=== PATIENT | male | born 1940 | race Caucasian/White ===

== ENCOUNTER → 2024-01-01 06:22 | Day surgery (SDC) | payer MEDICARE, OTHER, SELFPAY | LOC: GI 06:22 | PROVIDERS: ATTENDING PHYSICIAN Internal Medicine Gastroenterology | DX: Z12.11 Encounter for screening for malignant neoplasm of colon (principal); K57.30 Diverticulosis of large intestine without perforation or abscess without bleeding; K64.8 Other hemorrhoids; K22.70 Barrett's esophagus without dysplasia; K22.89 Other specified disease of esophagus; K44.9 Diaphragmatic hernia without obstruction or gangrene; Z86.010 Personal history of colon polyps; Z87.19 Personal history of other diseases of the digestive system | CPT/HCPCS: 45378; 43239; 88305 ==

== ENCOUNTER → 2024-05-13 08:48 | Outpatient (REF) | payer MEDICARE, OTHER, SELFPAY | LOC: RCS 08:48 | PROVIDERS: ATTENDING PHYSICIAN Nurse Practitioner Gerontology; FAMILY PHYSICIAN Family Medicine | DX: I25.5 Ischemic cardiomyopathy (principal); Z95.5 Presence of coronary angioplasty implant and graft; Z98.890 Other specified postprocedural states; I48.0 Paroxysmal atrial fibrillation; I10 Essential (primary) hypertension | CPT/HCPCS: 93306 ==

== ENCOUNTER → 2024-10-29 10:56 | Outpatient (REF) | payer MEDICARE, OTHER, SELFPAY | LOC: DHCBC/DCA 10:56 | PROVIDERS: ATTENDING PHYSICIAN Internal Medicine; FAMILY PHYSICIAN Family Medicine | DX: I25.709 Atherosclerosis of coronary artery bypass graft(s), unspecified, with unspecified angina pectoris (principal); I25.5 Ischemic cardiomyopathy | CPT/HCPCS: 78452; 93017; A9500; J2785 ==

== ENCOUNTER → 2025-03-31 16:04 | Outpatient (REF) | payer MEDICARE, OTHER, SELFPAY | LOC: RAD 16:04 | PROVIDERS: ATTENDING PHYSICIAN Physician Assistant | DX: M79.641 Pain in right hand (principal) | CPT/HCPCS: 73130; 73140 ==

== ENCOUNTER 2025-04-15 16:54 | Emergency (ER) | payer MEDICARE, OTHER, SELFPAY ==
[2025-04-15 16:59] VITALS: BP 115/70
[2025-04-15 22:03] VITALS: BP 124/78
--- NOTE | 2025-04-15 22:03 | ED.GENMED ---
History of Present Illness
General
Chief Complaint: Musculo-Skeletal Complaint
Source: patient
Time Seen by Provider: 04/15/25 21:51
History of Present Illness
History of Present Illness:
84-year-old male with past medical history of CVA, atrial fibrillation, previous NE, hypertension, hyperlipidemia, valvular disease presenting to the emergency department for evaluation after he fell 2 weeks ago injuring his right hand and since
that time has had difficulty grasping objects secondary to pain that is mainly along the third distalmost aspect. Patient reports that he had an outpatient x-ray that allegedly did not show any fractures but due to continued pain decided come to
the ER this evening. He never followed up with any orthopedist. No other injuries or concerns.
Past History
Past History
ED Past Medical History: Arrthythmia (Atrial fibrillation), CAD, CVA (TIA, cerebral aneurysm subarachnoid bleed), GERD, HTN, Hypercholesterolemia, Valvular disease (Aortic regurgitation), Other (Clipped cerebral aneurysm . Osteoarthritis/tendinitis
left shoulder.) and Other (Obstructive sleep apnea/BiPAP)
ED Past Surgical History: Appendectomy, Cardiac (Mitral valve repair in 1994, CABG times 12/15/1994, PTCA with stent 2004, August 2017, bovine aortic valve replacement, CABG redo), Cholecystectomy and Other (Left inguinal hernia repair, TURP)
Patient has exhibited threatening behavior?: No
PSI?: No
Social History
Tobacco: Non-smoker
Alcohol: None
Drug: None
Personal:
Living: with family
Employment: Retired
Family History
Family History: Hypertension
Review of Systems
Review of Systems
All Other Systems: ROS reviewed and negative except as documented in HPI and ROS
Phy Exam
Physical Exam
Physical Exam:
GENERAL: Alert , in no apparent distress
EYE: conjunctiva clear
Head: Normocephalic atraumatic
NECK: Supple,
ENT: mmm.
LUNGS: no acute respiratory distress
NEUROLOGICAL: Alert and oriented
SKIN: Warm and dry, skin intact.
MUSCULOSKELETAL: Right hand: There is some mild soft tissue swelling around the 2nd and 3rd MCP joint. Patient is able to range of motion at the MCP, PIP and DIP but does complain of pain with stenotype machine operator at the third MCP. Easily palpable radial pulse.
Cap refill less than 2 seconds. Sensation is grossly intact to light touch. Remainder of extremity is within normal limits.
PSYCH: Normal and appropriate interaction.
Scores
Heart Failure Risk
Heart Failure Risk Score: Not Applicable
Heart Score for Chest Pain Patients
STEMI patient?: Not applicable
Withdrawal Assessment of Alcohol
Withdrawal Assessment Completed?: Not applicable
Course
Vital Signs
Initial and Last Documented VS:
Initial Vital Signs
Temp Pulse Resp BP Pulse Ox
98.5 F 65 16 115/70 97
04/15/25 16:59 04/15/25 16:59 04/15/25 16:59 04/15/25 16:59 04/15/25 16:59
Last Documented Vital Signs
Temp Pulse Resp BP Pulse Ox
98.5 F 63 16 124/78 97
04/15/25 16:59 04/15/25 22:03 04/15/25 22:03 04/15/25 22:03 04/15/25 22:03
Procedures
Splinting/Sling Placement
Right Wrist:
Procedure completed by: Lucille
Pre-splint extermity exam: neurovascular intact
Type of splint: volar
Splint material: other (3 inch Ortho-Glass)
Splint checked by provider?: Yes
Normal distal neurovascular exam?: Yes
MDM/Problems Addressed
Differential Diagnosis Includes:
Sprain, contusion, fracture, tendon injury/ligamentous injury
MDM/Problems Addressed:
84-year-old male presenting back to the emergency department after being seen as an outpatient for right hand injury from a fall. 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
advanced degenerative changes throughout the right hand. Due to patient's pain with range of motion we will place in a volar wrist splint for comfort. Information for orthopedics provided. Otherwise stable for discharge home.
*Pulse Oximetry
Patient hypoxic: no
*Critical Care Note
Total Time (30-74mins, 75-104mins- exclusive of procedures): Not Applicable
Data Reviewed
Review of Other/Old Records Reveals: Radiology Studies
ED Attending Note
-
Portions of this chart may have been created with voice recognition software.� Occasional wrong word or��sound alike� substitutions may have occurred due to the inherent limitations of voice recognition software.
Discharge Plan
Departure
Patient Disposition: Home (Routine Discharge)
Date of Disposition: 04/15/25
Time of Disposition: 22:03
Patient with high blood pressure during this ER visit?: No
Discharge Problem:
Hand pain, right
Instructions: Finger Sprain Exercises
Prescriptions:
No Action
aspirin 81 MG tablet,delayed release (DR/EC)
81 mg PO DAILY 0RF
atorvastatin 40 MG tablet
40 mg PO QPM Qty: 30 0RF
meclizine 12.5 MG tablet
12.5 mg PO TIDPRN PRN (Reason: Vertigo) Qty: 30 0RF
Patient Comments:
used only once
furosemide 20 MG tablet
20 mg PO DAILY
diltiazem HCl 120 MG capsule,extended release 24hr
120 mg PO DAILY Qty: 30 2RF
polyethylene glycol 3350 [ClearLax] 17 GM powder in packet
17 gm PO DAILYPRN PRN (Reason: constipation)
Patient Comments:
usually takes twice weekly
spironolactone 25 MG tablet
12.5 mg PO DAILY
metoprolol succinate 50 MG tablet extended release 24 hr
50 mg PO QPM
Iron
65 mg PO DAILY
warfarin [Jantoven] 3 MG tablet
1.5 mg PO MO
warfarin [Jantoven] 3 MG tablet
3 mg PO SUTUWETHFRSA
oxymetazoline [Vicks Sinex 12-Hour] 15 ML spray,non-aerosol
1 inh inhalation PRN PRN (Reason: congestion)
sucralfate 1 GRAM tablet
1 g PO TID
pantoprazole 40 MG tablet,delayed release (DR/EC)
40 mg PO BID
tramadol 50 MG tablet
50 mg PO BIDPRN PRN (Reason: pain) Qty: 8 0RF
Referrals:
Frank Jiménez MD [Active] - (Hand Surgeon - Call for appointment)
Interventions
Interventions:
*Risk Screen - Suicide Last Done: 04/15/25 17:00
*General Assessment Last Done: 04/15/25 21:59
*Neglect/Abuse Screening Last Done: 04/15/25 17:00
*ED- Fall Risk Assessment Last Done: 04/15/25 21:59
*ED COVID-19 Vaccine History Last Done: 04/15/25 21:59
*Nursing Disposition Last Done: 04/15/25 22:25
ED-Musculoskeletal Assessment Last Done: 04/15/25 21:55
Discharge Date and Time
Print Language: COMORAN
== END 2025-04-15 22:39 | disposition home or self-care (01) ==
LOC: EMR 16:54
PROVIDERS: EMERGENCY PHYSICIAN Student in an Organized Health Care Education/Training Program; FAMILY PHYSICIAN Physician Assistant
DX: M79.641 Pain in right hand (principal); W19.XXXA Unspecified fall, initial encounter; I10 Essential (primary) hypertension; I48.91 Unspecified atrial fibrillation; I25.2 Old myocardial infarction; E78.00 Pure hypercholesterolemia, unspecified; Z86.73 Personal history of transient ischemic attack (TIA), and cerebral infarction without residual deficits
CPT/HCPCS: 99283; 29125

== ENCOUNTER 2025-06-24 14:30 | Inpatient (IN) | payer MEDICARE, OTHER, SELFPAY ==
[2025-06-24] VITALS (19 sets, daily range): BP systolic 109–134; BP diastolic 49–66; BMI 26.6; BMI 26.4
[2025-06-24 12:36] LABS: Hematocrit 20.3 % (39.0-52.0); Hemoglobin 6.8 g/dL (13.0-18.0); Mean Corp Hgb Conc. 33.5 g/dL (33.0-37.0); Mean Corpuscular Volume 98.5 fL (80.0-94.0); Red Cell Dist. Width 16.4 % (11.5-14.5)
[2025-06-24 12:46] LABS: ALT (SGPT) 13 U/L (0-50); AST (SGOT) 15 U/L (17-59); Albumin 3.7 g/dl (3.5-5.0); Alkaline Phosphatase 71 U/L (38-126); Blood Urea Nitrogen 29 mg/dl (9-20); Calcium 8.5 mg/dl (8.4-10.2); Carbon Dioxide 28 mmol/L (22-30); Chloride 109 mmol/L (98-107); Estimated Creatinine Clearance 40 ml/min; Glucose 94 mg/dl (70-99); Potassium 4.6 mmol/L (3.5-5.1); Sodium 140 mmol/L (135-145); Total Protein 6.0 g/dl (6.3-8.2); eGFR 54.17
--- NOTE | 2025-06-24 12:53 | ED.GENMED ---
History of Present Illness
General
Chief Complaint: Dizziness
Source: patient and spouse
Exam Limitations: none
Time Seen by Provider: 06/24/25 12:26
Nursing documentation reviewed up to this point in time: agreed with
History of Present Illness
History of Present Illness:
The patient is a very pleasant 84-year-old man with a past medical history of atrial fibrillation on Eliquis, 2.5 mg twice daily, who comes in with complaints of gradual onset of weeks of generalized weakness, not feeling well, pressure in the front
of his head, and dizziness. Patient reports the dizziness feels like a loss of balance. He reports he also feels shortness of breath, especially while walking up the steps and showering. Patient reports intermittent chest pain but no current
chest pain. Patient reports that 2 weeks ago he noticed bruising along his right foot and his doctor discontinued Coumadin and started Eliquis. Patient also reports ' lots of indigestion' in his mid abdomen and bloating. He denies any specific
abdominal pain. He reports his stool looked dark but is not sure if it is bloody. Patient denies vision changes. He reports he has seen his doctor several times for this head pressure and dizziness and is due to get an MRI of his brain on
. He reports he has been taking meclizine twice a day for the dizziness and it seems to be helping. He last took it at 6 AM this morning.
Past History
Past History
ED Past Medical History: Arrthythmia (Atrial fibrillation), CAD, CVA (TIA, cerebral aneurysm subarachnoid bleed), GERD, HTN, Hypercholesterolemia, Valvular disease (Aortic regurgitation), Other (Clipped cerebral aneurysm . Osteoarthritis/tendinitis
left shoulder.) and Other (Obstructive sleep apnea/BiPAP)
ED Past Surgical History: Appendectomy, Cardiac (Mitral valve repair in 1994, CABG times 12/15/1994, PTCA with stent 2004, August 2017, bovine aortic valve replacement, CABG redo), Cholecystectomy and Other (Left inguinal hernia repair, TURP)
Patient has exhibited threatening behavior?: No
PSI?: No
Social History
Tobacco: Non-smoker
Alcohol: None
Drug: None
Personal:
Living: with family
Employment: Retired
Family History
Family History: Hypertension
Review of Systems
Review of Systems
Allergies reviewed?: Yes
All Other Systems: ROS reviewed and negative except as documented in HPI and ROS
Constitutional: Reports fatigue
EENT: Reports other (Sinus pressure for years, no ringing of ears or ear pain)
Respiratory: Reports trouble breathing
Cardiac: Reports chest pain
ABD/GI: Reports black stools and other (Bloating)
: Reports no symptoms
Musculoskeletal: Reports no symptoms
Skin: Reports no symptoms
Neurological: Reports no symptoms
Endocrine: Reports no symptoms
Hematologic/Lymphatic: Reports bruising (Bruising of right foot which patient attributes to injury from gardening)
Psychiatric: Reports no symptoms
Phy Exam
Physical Exam
Physical Exam:
Physical Exam
General: no apparent distress, not acutely ill. Well appearing
Neck: supple. no meningeal signs. normal psoterior pharynx
Heart: Bradycardic, normal rhythm
Lungs: no acute respiratory distress. clear bilaterally
Abdomen: Mild epigastric tenderness without rebound or guarding. Hemoccult positive stool, stool appears black. No visible red blood
Neuro: alert and oriented. no focal neurological deficits
Skin: no rash
Psychiatric: well kept. interactive and cooperative
Extremities: no edema. no calf tenderness. negative homans. good distal pulses
Course
Orders/Labs/Results
Orders:
Orders
06/24/25 Breakfast
Clear Liquid
At Your Request: Full Participation
06/24/25 10:05
Electrocardiogram (*1) Urgent
Reason for Study: Vertigo / Dizzy
EKG- Treatment ONCE
06/24/25 12:12
BNP [NT-proBNP] Urgent
CBC/With Diff [Complete Blood Count/With Diff] Urgent
CMP [Comprehensive Metabolic Panel] Urgent
Direct Bilirubin Urgent
Ferritin Urgent
Folate Urgent
Comment: ADD ON
Iron Urgent
LDH Urgent
Manual Differential Urgent
Total Iron Binding Urgent
Vitamin B12 Urgent
Comment: ADD ON
06/24/25 12:47
Type And Crossmatch [Type+Screen] Urgent
06/24/25 12:52
Pantoprazole [Protonix IV] 80 mg IV NOW STA
06/24/25 12:53
* Blood Bank Products Urgent
'suze Orders: Angelia
Blood Bank Products: *Packed RBC Leuko(PRBC's)
Quantity: 2
Transfuse Today: Yes
Is product needed for scheduled surgery?: No
Reason: Anemia
IV Insert/Care/Rem.- Treatment PRN
06/24/25 12:59
PTT Urgent
Prothrombin Time Urgent
06/24/25 13:00
CT Head W/o Iv Contrast Urgent
Comment:
Reason For Exam: dizziness, headache
06/24/25 13:55
Add On- LAB Routine
Tests Added?: iron tibc ferritin b12 folate direct bilirubin, ldh
06/24/25 14:05
GASTROINTESTINAL CONSULT Routine
Consulting Provider: Fei Esteves
Was physician already notified: Yes
06/24/25 14:06
Admit/Transfer Patient As Directed
Co-Sign Provider:
Level of Care: Inpatient admission
Assign to:: Telemetry
Physician / Group: Manny
Diagnosis: Anemia, GI Bleed
Reason for Telemetry: Arrhythmia
Date to Stop Telemetry: 06/27/25
Time to Stop Telemetry: 11:00
Reason for Hospitalization: blood transfusion, Protonix, IVFs, GI Consult
Expected length of stay greater than two midnights?: Yes
ELOS- Estimated Length of Stay in days: 3
I certify the patient meets the requirements for IP care: Yes
PRN Pain Medication Management As Directed
May give lesser potent ordered pain med per pt: Yes
preference::
Protocol:: Medication orders for pain may be administered in a
manner that supports deferring to patient preference
when the pt is:
- Requesting an ordered lesser potent pain medication.
Least to most potent pain medications are defined
as: acetaminophen < NSAID < tramadol < opioids
(morphine, oxycodone, hydromorphone).
- Requesting a lesser dose of the same medication IF
ORDERED.
- Requesting a less intrusive route of administration
if both routes are prescribed by the provider (PO <
IV).
06/24/25 14:08
Code Status As Directed
Resuscitation Status: Full Code
06/24/25 14:[address] Non Medication Order As Directed
Physician Order: Do Not Sent Patient to the floor until Head CT is Completed and Read by Radiology
06/24/25 14:17
HEMATOLOGY CONSULT Routine
Consulting Provider: Matthew Bhat
Was physician already notified: Yes
06/27/25 11:00
DC Protocol for Telemetry ONCE
Abnormal Lab Results
06/24/25 06/24/25
12:12 12:59
RBC 2.06 L 10^6/uL
(4.70-6.10)
Hgb 6.8 L* g/dL
(13.0-18.0)
Hct 20.3 L* %
(39.0-52.0)
MCV 98.5 H fL
(80.0-94.0)
MCH 33.0 H pg
(27.0-31.0)
RDW 16.4 H %
(11.5-14.5)
Plt Count 14 L* 10^3/uL
(130-400)
Segmented Neutrophils 22 L %
(42-75)
Band Neutrophils 9 H %
(0-3)
Monocytes (Manual) 12 H %
(2-9)
Eosinophils (Manual) 11 H %
(0-6)
PT 17.5 H Sec
(11.4-14.6)
Chloride 109 H mmol/L
(98-107)
BUN 29 H mg/dl
(9-20)
Total Bilirubin 1.7 H mg/dl
(0.2-1.3)
AST 15 L U/L
(17-59)
Total Protein 6.0 L g/dl
(6.3-8.2)
06/24/25 12:12
06/24/25 12:12
Vital Signs
Initial and Last Documented VS:
Initial Vital Signs
Temp Pulse Resp BP Pulse Ox
98.4 F 76 16 109/49 95
06/24/25 10:03 06/24/25 10:03 06/24/25 10:03 06/24/25 10:03 06/24/25 10:03
Last Documented Vital Signs
Temp Pulse Resp BP Pulse Ox
98.4 F 57 20 134/65 97
06/24/25 10:03 06/24/25 12:01 06/24/25 12:01 06/24/25 12:00 06/24/25 12:53
MDM/Problems Addressed
Differential Diagnosis Includes:
Subacute CVA, symptomatic anemia, acute dehydration, CHF
MDM/Problems Addressed:
Patient presents with acute fatigue, dizziness and shortness of breath
Chronic conditions affecting care: Arrhythmia
Acute Exacerbation and/or Progression of Chronic Illness:
Atrial fibrillation appears well-controlled. Patient is currently in a sinus rhythm
*Radiology
Radiology exam reviewed: radiology read reviewed
*Pulse Oximetry
SaO2: 97
Oxygen Mode of Delivery: Room air
Patient hypoxic: no
Comment: 97% on room air
*EKG
Interpreted by ED Provider?: Yes
Interpretation: abnormal
Comparison EKG: no comparison EKG present
Rate: bradycardiac
Rhythm: sinus
[place]: normal axis
Interval: normal interval
QRS Pattern: normal QRS
Ischemia: non-specific ST changes
*Panel Gluer Interpretation
Rate: bradycardiac
Interpretation: abnormal
Rhythm: sinus
*Critical Care Note
Total Time (30-74mins, 75-104mins- exclusive of procedures): 35 minutes
comment:
35 minutes critical care given to the patient including reviewing his prior medical records, including colonoscopy, speaking to him about the blood transfusion, counseling the patient and his , as well as reviewing his blood work, EKG and
speaking to the hospitalist
Data Reviewed
Review of Other/Old Records Reveals: Testing (Colonoscopy reviewed from 2023 which showed hemorrhoids and diverticula)
Source: patient and spouse
Patient Management
Social determinants of health affecting care: Living situation and Strong social support
Discussion with other providers: Hospitalist
ED Attending Note
-
Portions of this chart may have been created with voice recognition software.� Occasional wrong word or��sound alike� substitutions may have occurred due to the inherent limitations of voice recognition software.
Discharge Plan
Departure
Patient Disposition: Admit
Date of Disposition: 06/24/25
Time of Disposition: 13:03
Admit to: Med/Surg
Presentation/result/management discussed w/ accepting MD/DO: Hospitalist
Discharge Problem:
Acute symptomatic anemia, Acute upper gastrointestinal bleeding, Acute thrombocytopenia
Interventions
Interventions:
*Risk Screen - Suicide Last Done: 06/24/25 10:05
*Neglect/Abuse Screening Last Done: 06/24/25 10:05
ED- Neurological Assessment Last Done: 06/24/25 12:09
ED- Cardiac Assessment Last Done: 06/24/25 12:09
ED Swallowing Screen Last Done: 06/24/25 12:09
[2025-06-24] MEDS: PROTONIX IV 80 MG IV (12:59)
--- NOTE | 2025-06-24 13:00 | HPS.HSE ---
Family Physician
-
Family Physician: Rambo Mcdowell
Chief Complaint
-
Dizziness
History of Present Illness
Patient is an 84 y/o male past medical history of CAD s/p CABG, Cerebral Aneurysm s/p Clip, A-Fib on Eliquis, GERD/Griffin's and Obstructive Sleep Apnea who presents with dizziness. Patient reports he has been experiencing dizziness and head
pressure for the past few weeks. He reports generalized weakness and overall not feeling well. He reports some associated shortness of breath. Patient is also complaining about increased reflux and upset stomach over the past few weeks. Yesterday
and today he noted dark/black colored stools. Patient notes he was recently changed from Coumadin to Eliquis to due a rash that was noted on his legs a few weeks ago which he states is now resolved.
Medical History
Past Medical History
Past Medical History: Reports Other
Additional Past Medical History:
Subarachnoid Hemorrhage s/p Cerebral Aneurysm Clip
Coronary Artery Disease s/p CABG and Stents
Ischemic Cardiomyopathy / Chronic HFpEF
Valvular Heart Disease
Paroxysmal Atrial Fibrillation
Essential Hypertension
Hyperlipidemia
GERD / Griffin's
Obstructive Sleep Apnea
Prostate Cancer s/p Prostatectomy
Past Surgical History: Reports Other
Additional Past Surgical History:
CABG
Aortic Valve Replacement
Mitral Valve Repair
Cerebral Aneurysm Clip
Left Inguinal Hernia Repair
Prostatectomy
Cholecystectomy
Appendectomy
Social History
Tobacco: Non-smoker
Family History
Family History: Not pertinent
Allergies / Home Medications
Allergies reflects when Allergies were last updated in [facility].
Home Medications with original date entered in [facility]
Allergy/Medication List:
Allergies
Allergy/AdvReac Type Severity Reaction Status Date / Time
nafcillin Allergy Unknown Verified 11/25/23 20:44
Penicillins Allergy Hives/rash, Verified 11/25/23 20:44
tolerates
cefuroxime
pseudoephedrine Allergy high blood Verified 11/25/23 20:44
pressure,
rash
vancomycin Allergy Tremor, Verified 11/25/23 20:44
rigidity,
rigor post
infusion x
2
occurrences
Home Medications
aspirin 81 mg tablet,delayed release 81 mg PO DAILY 09/07/17
atorvastatin 40 mg tablet 40 mg PO QPM ##30 02/20/18
furosemide 20 mg tablet 20 mg PO DAILY Fluid retention/Swelling 09/27/19
diltiazem HCl 120 mg capsule,extended release 24 hr 120 mg PO DAILY #30 caps 09/30/19
polyethylene glycol 3350 17 gram oral powder packet (ClearLax) 17 gm PO DAILYPRN PRN constipation 11/29/19
metoprolol succinate 50 mg tablet,extended release 24 hr 50 mg PO QPM Heart disease/condition 08/04/20
pantoprazole 40 mg tablet,delayed release 40 mg PO DAILY 10/14/21
acetaminophen 500 mg tablet (Tylenol Extra Strength) 500 mg PO Q6HPRN PRN mild pain 06/24/25
apixaban 2.5 mg tablet (Eliquis) 2.5 mg PO BID 06/24/25
ferrous sulfate 325 mg (65 mg iron) tablet 325 mg PO DAILY 06/24/25
magnesium oxide 600 mg PO DAILY 06/24/25
pilocarpine HCl 1 % eye drops 1 drp BOTH EYES BID 06/24/25
rivastigmine tartrate 3 mg capsule 3 mg PO BID 06/24/25
Review of Systems
-
A 12 point ROS was completed and negative except as noted: Yes
Constitutional: Denies Fever
Respiratory: Reports Trouble Breathing; Denies Cough
Cardiac: Reports Chest Pain; Denies Palpitations
Abdomen/GI: Reports Abdominal Pain
Physical Exam
Vital Signs
Vital Signs
Temp Pulse Resp BP Pulse Ox
98.4 F 57 20 134/65 97
06/24/25 10:03 06/24/25 12:01 06/24/25 12:01 06/24/25 12:00 06/24/25 12:53
Physical Exam
General: Comfortable and Conversant
HEENT: Anicteric and Moist mucous membranes
Respiratory: Clear and Non Labored Respirations
Cardiac: S1/S2, Regular Rhythm and Murmur
GI: Soft and Non Tender
Rectal: Hem Positive (Per ED Provider)
Musculoskeletal: No Clubbing and No Cyanosis
Skin: Warm, Dry and Other (Bruising noted to right toes, and lateral foot)
Neuro: Awake, Alert, Oriented and Nonfocal/grossly intact
Psych: Calm
Laboratory Results
-
06/24/25 12:12
06/24/25 12:12
Laboratory Results
Total Bilirubin 1.7 mg/dl (0.2-1.3) H 06/24/25 12:12
AST 15 U/L (17-59) L 06/24/25 12:12
ALT 13 U/L (0-50) 06/24/25 12:12
Alkaline Phosphatase 71 U/L (38-126) 06/24/25 12:12
Data Reviewed
-
Lab Data: Labs Reviewed by me
Impression/Plan
-
GI Bleed, likely upper in nature
-Consult GI
-Continue NPO/IVFs
-Continue Protonix IV BID
Symptomatic Anemia secondary to GI Bleed
-Transfuse 2 units PRBCs
-Check iron studies
-Trend serial Hgb
Thrombocytopenia, unclear cause
-Consult Hematology
-Transfuse 1 packets of platelets
-Hold Aspirin
Coronary Artery Disease s/p CABG and Stents
-Hold aspirin
Valvular Heart Disease s/p Mitral Valve Repair and Aortic Valve Replacement
Ischemic Cardiomyopathy
-Hold Lasix
-Monitor Daily Weights
Paroxysmal Atrial Fibrillation
-Eliquis on hold due to GI Bleed
-Continue diltiazem and metoprolol
Essential Hypertension
-Continue diltiazem and metoprolol with hold parameters
Hyperlipidemia
-Hold atorvastatin
DVT proph: SCDs
Code Status: Full Code
[2025-06-24 13:24] LABS: INR 1.38; PT 17.5 Sec (11.4-14.6)
[2025-06-24 13:25] LABS: APTT 34.4 Sec (23.4-35.0)
--- NOTE | 2025-06-24 13:30 | CON.GI ---
Consultation
-
Date/Time Consultation Performed: 06/24/25
Performing Provider: Mao Bosch MD
Reason for Consultation: melena
Medical History
Chief Complaint / HPI
Chief Complaint: anemia
History of Present Illness:
The patient is an 84-year-old male with past medical history as noted who presents with increasing shortness of breath and fatigue. For the past several weeks has been noticing increasing dyspnea on exertion as well as fatigue. Has been having
some dizziness as well and was planned for an outpatient MRI. Upon presentation to the emergency room, however he was found to have a hemoglobin of 6.8 with an MCV of 98.5. This is new from December where his hemoglobin was normal. His stools
have always been dark since he has been on iron chronically, and he tends to be more constipated. He denies any loose stools or diarrhea recently. He denies any significant abdominal pain, nausea or vomiting, dysphagia or odynophagia. He denies
any extraneous NSAIDs. He was recently switched a few weeks ago from warfarin to Eliquis given a rash on his legs, last dose of Eliquis was taken this morning. His last EGD and colonoscopy done for surveillance of polyps and Griffin's esophagus in
2023 were essentially unremarkable except for sigmoid diverticulosis. 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 He said no other signs of
bleeding since then. He has been on iron chronically for likely angiectasia, though again his hemoglobin is been essentially normal.
Past Medical History
Past Medical History: Other (Griffin's esophagus, history of colon polyps, colonic angiectasia, coronary artery disease, A-fib, aortic stenosis status post AVR/CABG, high cholesterol, subarachnoid bleed, mitral valve disease, thoracic aneurysm)
Past Surgical History: Other (H Cardiac Cath successful multivessel intervention involving circ and RCA dz 08/2017 mitral valve repair and coronary artery bypass grafting x 1 using SV to ramus ([facility] - 1994)
craniotomy (1990) tonsillectomy appendectomy reop sternotomy aortic va)
Social History
Tobacco: Non-Smoker
Alcohol: None
Family History
Family History: Reviewed & Not Pertinent
Allergies / Home Medications
Allergy/AdvReac Type Severity Reaction Status Date / Time
nafcillin Allergy Unknown Verified 11/25/23 20:44
Penicillins Allergy Hives/rash, Verified 11/25/23 20:44
tolerates
cefuroxime
pseudoephedrine Allergy high blood Verified 11/25/23 20:44
pressure,
rash
vancomycin Allergy Tremor, Verified 11/25/23 20:44
rigidity,
rigor post
infusion x
2
occurrences
�Medication �Instructions �Recorded
aspirin 81 mg tablet,delayed 81 mg PO DAILY 09/07/17
release
atorvastatin 40 mg tablet 40 mg PO QPM ##30 02/20/18
meclizine 12.5 mg tablet 12.5 mg PO TIDPRN PRN Vertigo ##30 02/20/18
furosemide 20 mg tablet 20 mg PO DAILY Fluid 09/27/19
retention/Swelling
diltiazem HCl 120 mg 120 mg PO DAILY #30 caps 09/30/19
capsule,extended release 24 hr
polyethylene glycol 3350 17 gram 17 gm PO DAILYPRN PRN constipation 11/29/19
oral powder packet (ClearLax)
spironolactone 25 mg tablet 12.5 mg PO DAILY Heart Failure 04/12/20
metoprolol succinate 50 mg 50 mg PO QPM Heart 08/04/20
tablet,extended release 24 hr disease/condition
Iron 65 mg PO DAILY 12/10/20
warfarin 3 mg tablet (Jantoven) 1.5 mg PO MO 07/30/21
warfarin 3 mg tablet (Jantoven) 3 mg PO SUTUWETHFRSA 07/30/21
oxymetazoline 0.05 % nasal spray 1 inh inhalation PRN PRN congestion 10/14/21
(Vicks Sinex 12-Hour)
pantoprazole 40 mg tablet,delayed 40 mg PO BID 10/14/21
release
sucralfate 1 gram tablet 1 g PO TID 10/14/21
tramadol 50 mg tablet 50 mg PO BIDPRN PRN pain #8 tabs 03/13/22
Review of Systems
-
All other systems: A 12 pt ROS was Negative except as stated above in HPI
Vital Signs
Temp Pulse Resp BP Pulse Ox
98.4 F 57 20 134/65 97
06/24/25 10:03 06/24/25 12:01 06/24/25 12:01 06/24/25 12:00 06/24/25 12:53
Physical Exam
Exam
General: NAD
HEENT: MMM, anicteric, no lymphadenopathy
Heart: Regular, Mechanical heart sound
Lungs: CTA bilaterally
Abdomen: normal bowel sounds, soft, no tenderness, no rebound or guarding, no masses, bruits or ascites
Extremeties: no edema
Skin: no rashes
Results
WBC 7.1 10^3/uL (4.8-10.8) 06/24/25 12:12
Hgb 6.8 g/dL (13.0-18.0) L* 06/24/25 12:12
Hct 20.3 % (39.0-52.0) L* 06/24/25 12:12
MCV 98.5 fL (80.0-94.0) H 06/24/25 12:12
PT 17.5 Sec (11.4-14.6) H 06/24/25 12:59
INR 1.38 06/24/25 12:59
APTT 34.4 Sec (23.4-35.0) 06/24/25 12:59
Sodium 140 mmol/L (135-145) 06/24/25 12:12
Potassium 4.6 mmol/L (3.5-5.1) 06/24/25 12:12
Chloride 109 mmol/L (98-107) H 06/24/25 12:12
Carbon Dioxide 28 mmol/L (22-30) 06/24/25 12:12
BUN 29 mg/dl (9-20) H 06/24/25 12:12
Creatinine 1.3 mg/dL (0.7-1.3) 06/24/25 12:12
Calcium 8.5 mg/dl (8.4-10.2) 06/24/25 12:12
Total Bilirubin 1.7 mg/dl (0.2-1.3) H 06/24/25 12:12
AST 15 U/L (17-59) L 06/24/25 12:12
ALT 13 U/L (0-50) 06/24/25 12:12
Alkaline Phosphatase 71 U/L (38-126) 06/24/25 12:12
Diagnostic Image Results:
Prior GI Procedures:
EGD:
12/2023:
Impression: - Small hiatal hernia.
- Z-line irregular, at the gastroesophageal junction.
Biopsied.
- Normal stomach.
- Normal examined duodenum.
Colonoscopy:
12/2023:
Impression: - Internal hemorrhoids.
-Many medium-mouthed diverticula were found in the
sigmoid colon.
- No specimens collected.
Assessment / Plan
-
1. Anemia: Normocytic, in the setting of anticoagulation. While acute GI blood losses a definite possibility, and has had cecal angiectasia and likely other angiectasia in the past, other etiologies including hemolysis or primary hematological
disorder such as MDS are also possible, especially given his MCV, elevated bilirubin, and platelets which are still currently pending. At this point he has no signs of brisk active bleeding and is hemodynamically stable. He is for blood
transfusion, agree with PPI, and will still likely plan eventual EGD, likely morning which is 48 hours off of Eliquis, sooner if signs of brisk active bleeding. Would be okay for clear liquids for now with continued close monitoring. Will
check iron studies, B12, folate, as well as direct bilirubin, LDH for now. Pending his platelet count and other labs may consider heme eval as well.
-
-
Thank you for consultation and allowing me to participate in the patient's care. Please call the section housekeeper GI physician during the after hours with any questions or concerns.
--- NOTE | 2025-06-24 13:43 | W.PN.UPDATE ---
Addendum entered and electronically signed by Joe Bryant MD 06/24/25 15:28:
Patient with newly discovered thrombocytopenia 14. 1 unit of platelets. Hematology consulted.
Original Note:
Update Note
Progress Note Update
This is an addendum to the H&P written by Paradise Reveles on 06/24/2025. �Patient seen and examined independently with PA.
84-year-old male past medical history of paroxysmal atrial fibrillation on Eliquis, CAD status post CABG, mitral valve replacement, Griffin's esophagus, history of cerebral aneurysm status post clip, hypertension, obstructive sleep apnea, prostate
cancer presenting with headache and dizziness for few weeks, shortness of breath, ongoing indigestion/reflux and black stools.
Vital signs normal.
Hemoglobin of 6.8.
Patient with symptomatic acute blood loss anemia secondary to upper GI bleeding.� Check CT head due to headache.� Hold Eliquis and ASA. �2 units of blood. �Check iron studies and B12 and folate. �Protonix twice daily. �NPO. �GI consulted.
[2025-06-24 13:52] LABS: Absolute Neutrophils -Man Diff 2.2 10^3/uL (1.4-6.5); Platelet Count 14 10^3/uL (130-400)
[2025-06-24 13:53] LABS: Platelets Checked Yes
[2025-06-24 13:54] LABS: Anisocytosis 1+; Hypochromasia 1+; Normal RBC Morphology No; Ovalocytes 1+
[2025-06-24 13:55] LABS: Acanthocytes Occasional; Total Cells Counted 100
--- NOTE | 2025-06-24 14:56 | CON.ONC ---
Documented by User: Khushi Campos MD, Resident 06/24/25 16:26
Consultation
-
Date Consultation Requested: 06/24/25
Date Consultation Performed: 06/24/25
Requesting Provider: Paradise Alva
Performing Provider: Dr. Matthew Bhat
Reason for Consultation: Low plateles
Impression
Impression
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
echo 60 to 65% EF) hyperlipidemia, history of TIA/subarachnoid bleed, mitral valve disease, thoracic aneurysm, DAMIAN on CPAP, history of colon polyps, history of prostate cancer s/p surgical resection presents to [place] ED with complaints of
fatigue, SOB and dizziness. He endorsed indigestion, nausea and dark stools. GI is consulted for suspected upper GI bleed as hemoglobin 6.8. Platelets also noted to be 14, segmented neutrophils 22, penetrable 9, monocytes 12, eosinophils 11.
Hematology suspects combined acute blood loss anemia with underlying hematological disease contributing to pancytopenia (neutrophils are low). His labs are suspicious of a hemolytic anemia with indirect bilirubin 1.5, LDH 144 (1.5 times upper
limits of normal). 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 Renal function is normal which helps rule out TTP. Adding additional labs to rule out
DIC. He currently has no petechial rash.
Plan
Plan
Acute blood loss anemia secondary to suspected GI bleed
--Known Barretts esophagus
--Does not appear to be in active brisk bleed
--Hold eliquis
--Transfuse 2 units blood, IV PPI, likely endoscopic eval per GI in 48 hrs after Eliquis wash out
--Transfuse for hg <7
--Trend H&H and monitor vitals
Pancytopenia (Hg 6.8, Plt 14, segmented neutrophils 22)
Macrocytic anemia (MCV 98.5)
Possible hemolytic anemia
--Transfuse 1 unit platelets
--In light of if active bleeding, goal to keep ptl >55
--Indirect bilirubin 1.5 and LDH 344 (1.5x normal limit) making hemolytic anemia likely
--Will check reticulocyte count, fibrinogen, direct sukhdeep test
--Check peripheral smear for schistocytes
--Monitor
Hx a.fib
--Hold eliquis in setting of active bleed
--On diltiazem and metoprolol
Combined systolic and diastolic HF
-- BNP 2680, echo 05/13/2025 with ventricular ejection fraction 60 to 65%, mild concentric left ventricular hypertrophy. Repaired mitral valve with well-seated mitral annuloplasty, mild MR, normal functioning bioprosthetic arctic valve, trace
regurgitation.
--spironolactone d/c by PCP, on metoprolol and lasix
Hx Cardiac Cath successful multivessel intervention involving circ and RCA dz 08/2017, mitral valve repair and coronary artery bypass grafting x 1 using SV to ramus --
--On ASA and atorvastatin
HLD
--On atorvastatin
Cognitive deficits
--Etiology unclear
--On rivastigmine
DVT - SCD
Full code
Patient History
History of Present Illness
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
echo 60 to 65% EF) hyperlipidemia, history of TIA/subarachnoid bleed, mitral valve disease, thoracic aneurysm, DAMIAN on CPAP, history of colon polyps, history of prostate cancer s/p surgical resection presents to [place] ED with complaints of
fatigue, SOB and dizziness. He has been dealing with fatigue and dizziness for the past few months. He went to his outpatient PCP and they plan for an MRI this . He also complains of indigestion, mid abdominal bloating, dark stools. He
also reports and is not sure if it is bloody. He denies any chest pain, heart palpitations, shortness of breath, vomiting, weight loss, night sweats, fevers. He states recently he was switched from Coumadin to Eliquis due to bilateral lower
extremity rash which he cannot describe in detail. He has no known issue with his platelets. He last took his Eliquis at 6 AM this morning.
In the ED, blood pressure 134/65, heart rate is 57, respiratory rate 20, afebrile satting well on room air. WBC 7.1, hemoglobin 6.8, hematocrit 20.3, MCV 98.5, platelet 14, segmented neutrophil 22, band neutrophils 9, monocyte 12, eosinophil 11.
Creatinine 1.3, total bilirubin 1.7, proBNP 2680. Head CT revealed no acute intracranial abnormality with stable postoperative changes in the left occipital craniectomy with underlying encephalomalacia. EKG in sinus rhythm. Echo 05/13/24 revealed
60-65% Patient was started on IV PPI and GI was consulted for suspected upper GI bleed. Hematology oncology consulted for further evaluation of CBC abnormalities.
Past-Medical/Surgical History
Past medical history: Griffin's esophagus, history of colon polyps, colonic angiectasia, coronary artery disease, A-fib, aortic stenosis status post AVR/CABG, high cholesterol, subarachnoid bleed, mitral valve disease, thoracic aneurysm, DAMIAN on
CPAP, prostate cancer s/p surgical resection, chronic systolic and diastolic congestive heart failure (05/13/2024 echo 60 to 65% EF)
Past surgical history:H Cardiac Cath successful multivessel intervention involving circ and RCA dz 08/2017, mitral valve repair and coronary artery bypass grafting x 1 using SV to ramus ([facility] - 1994), craniotomy (1990),
tonsillectomy, appendectomy, reop sternotomy aortic va), left inguinal hernia repair, TURP, cholecystectomy
Patient Medication
�Medication �Instructions �Recorded �Confirmed �Last Taken �Type
aspirin 81 mg tablet,delayed 81 mg PO DAILY 09/07/17 06/24/25 06/24/25 Rx
release
atorvastatin 40 mg tablet 40 mg PO QPM ##30 02/20/18 06/24/25 10/17/21 20:30 Rx
furosemide 20 mg tablet 20 mg PO DAILY Fluid 09/27/19 06/24/25 06/24/25 History
retention/Swelling
diltiazem HCl 120 mg 120 mg PO DAILY #30 caps 09/30/19 06/24/25 06/24/25 Rx
capsule,extended release 24 hr
polyethylene glycol 3350 17 gram 17 gm PO DAILYPRN PRN constipation 11/29/19 06/24/25 06/24/25 History
oral powder packet (ClearLax)
metoprolol succinate 50 mg 50 mg PO QPM Heart 08/04/20 06/24/25 10/17/21 20:30 History
tablet,extended release 24 hr disease/condition
pantoprazole 40 mg tablet,delayed 40 mg PO DAILY 10/14/21 06/24/25 06/24/25 History
release
acetaminophen 500 mg tablet 500 mg PO Q6HPRN PRN mild pain 06/24/25 06/24/25 06/24/25 History
(Tylenol Extra Strength)
apixaban 2.5 mg tablet (Eliquis) 2.5 mg PO BID 06/24/25 06/24/25 06/24/25 History
ferrous sulfate 325 mg (65 mg 325 mg PO DAILY 06/24/25 06/24/25 06/24/25 History
iron) tablet
magnesium oxide 600 mg PO DAILY 06/24/25 06/24/25 06/24/25 History
pilocarpine HCl 1 % eye drops 1 drp BOTH EYES BID 06/24/25 06/24/25 06/23/25 History
rivastigmine tartrate 3 mg capsule 3 mg PO BID 06/24/25 06/24/25 06/24/25 History
Review of Systems
-
History Source: Patient and Other (Poor historian)
Constitutional: Reports No Symptoms
EENT: Reports No Symptoms
Respiratory: Reports Other (SOB)
Cardiac: Reports No Symptoms
GI: Reports Nausea, Black Stools, Pain and Bloated
Skin: Reports No Symptoms
Neuro: Reports No Symptoms
Hematologic/Lymphatic: Reports Bruising
Physical Exam
-
General: No Apparent Distress and Comfortable
Cardiology: Normal Sinus Rhythm and Murmur
Pulmonary: Clear
GI: Soft, Normal Bowel Sounds and Other (slight abdominal tenderness in all quadrants, no guarding or rigidity)
Musculoskeletal: No Cyanosis and No Edema
Skin: Warm and Dry
Psych: Calm
Labs
Lab Results
WBC 7.1 10^3/uL (4.8-10.8) 06/24/25 12:12
RBC 2.06 10^6/uL (4.70-6.10) L 06/24/25 12:12
Hgb 6.8 g/dL (13.0-18.0) L* 06/24/25 12:12
Hct 20.3 % (39.0-52.0) L* 06/24/25 12:12
MCV 98.5 fL (80.0-94.0) H 06/24/25 12:12
MCH 33.0 pg (27.0-31.0) H 06/24/25 12:12
MCHC 33.5 g/dL (33.0-37.0) 06/24/25 12:12
RDW 16.4 % (11.5-14.5) H 06/24/25 12:12
Plt Count 14 10^3/uL (130-400) L* 06/24/25 12:12
MPV Not Reportable 06/24/25 12:12
Creatinine 1.3 mg/dL (0.7-1.3) 06/24/25 12:12
Vital Signs
Vital Signs
Temp Pulse Resp BP Pulse Ox
98.4 F 57 20 134/65 97
06/24/25 10:03 06/24/25 12:01 06/24/25 12:01 06/24/25 12:00 06/24/25 12:53

Documented by User: Matthew Bhat MD 06/24/25 16:44
Impression
Impression
Thrombocytopenia, unclear cause
Anemia, possible blood loss, possible hemolysis, possible bone marrow problem (macrocytic)
Neutropenia with left shift (5% myelocytes)
Plan
Plan
Acute blood loss anemia secondary to suspected GI bleed
--Known Barretts esophagus
--Does not appear to be in active brisk bleed
--Hold eliquis
--Transfuse 2 units blood, IV PPI, likely endoscopic eval per GI in 48 hrs after Eliquis wash out
--Transfuse for hg <7
--Trend H&H and monitor vitals
Pancytopenia (Hg 6.8, Plt 14, segmented neutrophils 22)
Macrocytic anemia (MCV 98.5)
Possible hemolytic anemia
--Transfuse 1 unit platelets
--In light of if active bleeding, goal to keep ptl >55
--Indirect bilirubin 1.5 and LDH 344 (1.5x normal limit) making hemolytic anemia likely
--Will check reticulocyte count, fibrinogen, direct Sukhdeep test
--Check peripheral smear for schistocytes
--Monitor
Hx a.fib
--Hold eliquis in setting of active bleed
--On diltiazem and metoprolol
Combined systolic and diastolic HF
-- BNP 2680, echo 05/13/2025 with ventricular ejection fraction 60 to 65%, mild concentric left ventricular hypertrophy. Repaired mitral valve with well-seated mitral annuloplasty, mild MR, normal functioning bioprosthetic arctic valve, trace
regurgitation.
--spironolactone d/c by PCP, on metoprolol and lasix
Hx Cardiac Cath successful multivessel intervention involving circ and RCA dz 08/2017, mitral valve repair and coronary artery bypass grafting x 1 using SV to ramus --
--On ASA and atorvastatin
HLD
--On atorvastatin
Cognitive deficits
--Etiology unclear
--On rivastigmine
DVT - SCD
Full code
[2025-06-24 14:58] LABS: Iron 132 ug/dl (49-181); LDH 344 U/L (120-246)
[2025-06-24 15:07] LABS: Total Iron Binding Capacity 249 ug/dl (261-462)
[2025-06-24 15:34] LABS: Ferritin 686.0 ng/ml (17.9-464.0)
[2025-06-24 16:05] LABS: Folate 7.6 ng/ml (2.76-20); Vitamin B12 > 1000 pg/ml (239-931)
--- NOTE | 2025-06-24 16:40 | CM ---
CM reviewed chart and met with pt bedside in ED. Lives with , 1 story home with attic and basement, 4-5 [address].
Independent in ADLs, personal care and ambulation at baseline, no assistive devices. Still drives.
Unsure of VN history, has been to SNF in [place] but could not remember the name. Familiar with [facility] as his has been there several times.
PCP: Rambo Mcdowell
Pharmacy: [facility] [address], [place]
Anticipate discharge home pending ongoing medical evaluation, watch for needs.
[2025-06-24 19:11] LABS: Reticulocyte Count 1.1 % (0.4-2.8)
[2025-06-24 19:15] LABS: Fibrinogen 361 MG/DL (199-459)
[2025-06-24] MEDS: TOPROL XL PO (22:26)
[2025-06-24] MEDS: PROTONIX IV 40 MG IV (23:16)
[2025-06-24] MEDS: LIPITOR 40 MG PO (23:17)
[2025-06-24] MEDS: NSS (PRESERVATIVE FREE) 10 ML IV (23:17)
[2025-06-24] MEDS: EXELON PO (23:22)
[2025-06-25] VITALS (17 sets, daily range): BP systolic 62–134; BP diastolic 51–74; PULSE 61; O2SAT 95; BMI 26.4
[2025-06-25 00:13] LABS: Hematocrit 23.5 % (39.0-52.0); Hemoglobin 8.2 g/dL (13.0-18.0); Platelet Count 26 10^3/uL (130-400)
--- NOTE | 2025-06-25 00:25 | PTCARENOTE ---
Call from lab reg critical platelet value of 26. Sariah Hawthorne NP made aware via TT.
--- NOTE | 2025-06-25 00:26 | W.PN.UPDATE ---
Update Note
Progress Note Update
Critical labs received: Platelet count 26. Per Oncology note, keep platelets > 55. Ordered 1 unit platelets, repeat labs in am.
--- NOTE | 2025-06-25 01:20 | PTCARENOTE ---
Phone call from lab- awaiting delivery of platelets and they will call when platelets are available. MACHINE SAND MIXER aware.
--- NOTE | 2025-06-25 06:21 | W.PN.GI.CBS2 ---
Today's Communication / Plan
-
No signs of brisk GI bleeding since admission and serial H/h remains stable. Pending further Hematologic w/u given his anemia and thrombocytopenia. Transfuse for goal Hgb > 8 and plts > 50k if able given concern for GIB. Favor pursuing an EGD
tomorrow, 06/26, to allow for 2-day washout of eliquis. See rest of care as outlined below.
Assessment / Plan
-
#Normocytic Anemia
#Thrombocytopenia
#Heme (+) Stools
#Symptomatic Anemia
#A Fib (on eliquis)
Impression: Normocytic, in the setting of anticoagulation. While acute GI blood losses a definite possibility, and has had cecal angiectasia and likely other angiectasia in the past, other etiologies including hemolysis or primary hematological
disorder such as MDS are also possible, especially given his MCV, elevated bilirubin, and platelets which are still currently pending. At this point he has no signs of brisk active bleeding and is hemodynamically stable. He is for blood
transfusion, agree with PPI, and will still likely plan eventual EGD, likely morning which is 48 hours off of Eliquis, sooner if signs of brisk active bleeding. Would be okay for clear liquids for now with continued close monitoring. Will
check iron studies, B12, folate, as well as direct bilirubin, LDH for now. Pending his platelet count and other labs may consider heme eval as well.
No evidence of obvious GI bleeding since admission, only noting intermittent darker stools. Suspect oozing UGIB in setting of his anticoagulation and from his underlying thrombocytopenia. Still seems suspicious for an underlying hematologic process
as well with concern for potential myelodysplastic syndrome. Otherwise, he remains HD-stable with stable H/h pending additional platelet transfusions.
Recommendations:
- Okay for diet as tolerated, keep NPO at MN
- F/u AM labs and repeat CBC
- Trend Hgb with serial CBC, transfuse for goal Hgb > 8.0
- Empiric IV PPI 40 mg BiD
- Eliquis remains on hold (last dose 06/24- )
- Plan for tentative EGD tomorrow, 06/26, to allow for two-day washout of eliquis along with additional platelet transfusions for plt goal near 50k prior to EGD
- Transfuse for goal plts > 50k given concern for GI bleeding0
- Avoidance of all NSAIDs
- Monitor for signs of recurrent GI bleeding while inpatient
- Heme/Onc following, appreciate recs
- Rest of care as per primary team
GI will continue to follow, please call with any questions or concerns.
Subjective
Subjective
Date of Service: June 25, 2025
- S/p 1 uPRBC for Hgb 6.8 -> 8.2 ; S/p 1 u plts 14 -> 26 and ordered an additional 1 unit of plts early this AM
- Oncology consulted given concern for anemia, thrombocytopenia and c/f hemolysis, possibly concerning for myelodysplasia
- Otherwise, remains HD-stable and no acute events overnight
Feeling well and resting comfortably. Does note some darker stools early this AM but denies any obvious blood or rectal bleeding. Confirms his last dose of eliquis was yesterday, 06/24.
Objective
Data Reviewed
Laboratory Data:
Laboratory Results
PT 17.5 Sec (11.4-14.6) H 06/24/25 12:59
INR 1.38 06/24/25 12:59
APTT 34.4 Sec (23.4-35.0) 06/24/25 12:59
Total Bilirubin 1.7 mg/dl (0.2-1.3) H 06/24/25 12:12
AST 15 U/L (17-59) L 06/24/25 12:12
ALT 13 U/L (0-50) 06/24/25 12:12
Alkaline Phosphatase 71 U/L (38-126) 06/24/25 12:12
Vital Signs and I&O:
Vital Signs
Temp Pulse Resp BP Pulse Ox
97.8 F 64 16 105/64 92
06/25/25 03:29 06/25/25 03:29 06/25/25 03:29 06/25/25 03:29 06/25/25 03:29
I&O
06/23/25 06/24/25 06/25/25
06:59 06:59 06:59
Intake Total 1969
Balance 1969
Physical Exam
Physical Exam
HEENT: Anicteric and Moist mucous membranes
Pulmonary: Other (Normal WOB on room air)
GI: Soft, Distended (Protuberant, obese abdomen) and Non Tender
Extremities: No Edema
Neuro: Non Focal
[2025-06-25] MEDS: TYLENOL 650 MG PO (07:07)
--- NOTE | 2025-06-25 08:21 | W.PN.ONC2 ---
Today's Communication / Plan
-
Await CBC. Transfuse as needed to maintain plt >40,000 with possible GI bleed. Will try to get bone marrow aspirate and biopsy approval by [employer] --- APPROVED.
Impression
Impression
Thrombocytopenia, unclear cause
Anemia, possible blood loss, possible hemolysis, possible bone marrow problem (macrocytic)
Neutropenia with left shift (5% myelocytes)
Plan
Plan
Await today's CBC. Hgb and PLT improved yesterday following transfusions.
So far, no clear-cut etiology. For possible EGD after Eliquis washout.
No clear evidence of hemolysis. MYRA negative. LDH just mildly elevated. Retake count 1.1 normal. Mild elevation in indirect bilirubin = 1.5.
No evidence of iron or B12 deficiency/substrate deficiency based on lab studies.
Maintain plt count > 40,000.
I do suspect an underlying primary bone marrow process. I will try to get approval to obtain inpatient bone marrow aspirate and biopsy. History of dark stools could also from GI bleed.
Subjective/Objective
Chief Complaint
ACS Heme onc
Subjective
Only complaint is mild headache for which Tylenol was given with some relief. Otherwise no complaints.
Vital Signs:
Vital Signs
Temp Pulse Resp BP Pulse Ox
97.8 F 64 16 105/64 92
06/25/25 03:29 06/25/25 03:29 06/25/25 03:29 06/25/25 03:29 06/25/25 03:29
Lab Results:
Laboratory Data
WBC 7.1 10^3/uL (4.8-10.8) 06/24/25 12:12
Hgb 8.2 g/dL (13.0-18.0) L D 06/24/25 23:55
Plt Count 26 10^3/uL (130-400) L* D 06/24/25 23:55
PT 17.5 Sec (11.4-14.6) H 06/24/25 12:59
INR 1.38 06/24/25 12:59
APTT 34.4 Sec (23.4-35.0) 06/24/25 12:59
eGFR 54.17 06/24/25 12:12
Physical Exam
Cardiology: S1 and S2
Pulmonary: Clear
GI: Soft
[2025-06-25 08:56] LABS: Hematocrit 23.3 % (39.0-52.0); Hemoglobin 8.2 g/dL (13.0-18.0); Mean Corp Hgb Conc. 35.2 g/dL (33.0-37.0); Mean Corpuscular Volume 91.4 fL (80.0-94.0); Platelet Count 22 10^3/uL (130-400); Red Cell Dist. Width 16.6 % (11.5-14.5)
[2025-06-25] MEDS: PROTONIX IV 40 MG IV ×2 (09:26→20:25)
[2025-06-25] MEDS: EXELON 3 MG PO ×2 (09:26→20:25)
[2025-06-25] MEDS: NSS (PRESERVATIVE FREE) 10 ML IV ×2 (09:27→20:26)
[2025-06-25 09:31] LABS: ALT (SGPT) 11 U/L (0-50); AST (SGOT) 15 U/L (17-59); Albumin 3.2 g/dl (3.5-5.0); Alkaline Phosphatase 70 U/L (38-126); Blood Urea Nitrogen 22 mg/dl (9-20); Calcium 7.9 mg/dl (8.4-10.2); Carbon Dioxide 24 mmol/L (22-30); Chloride 112 mmol/L (98-107); Estimated Creatinine Clearance 47 ml/min; Glucose 90 mg/dl (70-99); Magnesium 2.6 mg/dl (1.6-2.3); Potassium 4.5 mmol/L (3.5-5.1); Sodium 138 mmol/L (135-145); Total Protein 5.3 g/dl (6.3-8.2); eGFR > 60.00
[2025-06-25 09:39] LABS: PSA, Total - Diagnostic < 0.06 ng/ml (0.0-4.0)
[2025-06-25 09:42] LABS: LDH 325 U/L (120-246)
[2025-06-25] MEDS: ATIVAN 0.5 MG PO (10:59)
--- NOTE | 2025-06-25 11:10 | PTCARENOTE ---
11:00 Explain to pt one unit of platelets started as ordered per MD. Checked with second RN as per protocol. Stayed with pt first 15 minutes, pt tolerating, VS stable, continue to monitor pt closely.
--- NOTE | 2025-06-25 15:50 | W.PN.HOSP.TC ---
Addendum entered and electronically signed by Brittany Rodriguez MD 06/25/25 19:24:
I saw and evaluated the patient independently. I reviewed the resident�s note and agree with findings and plan as documented by Dr. Campos.
GENERAL:elderly male in no apparent distress
HEENT: NC/AT--no O2 requirements
HEART: regular rate and rhythm, +S1, +S2
LUNGS : clear to auscultation bilaterally
ABDOM: soft, nontender, nondistended, + bowel sounds
EXT: no cyanosis, clubbing, or edema
NEUROLOGIC: grossly intact--slower to respond
Acute blood loss anemia on chronic anemia secondary to suspected GI bleed--Known Griffin's esophagus, single angiectasia and other angiectasia--s/p 2 units pRBC--apprec GI--Eliquis washout then EGD--cont IV PPI--Transfuse for hg <8 per GI --Trend
H&H and monitor vitals
Pancytopenia/Macrocytic anemia/Possible hemolytic anemia although suspect for bone marrow dysfunction (MDS?)--apprec heme onc--s/p bone marrow biopsy---s/p 2 units plt - keep ptl >40,000 per heme/onc-- goal to keep ptl >50--Indirect bilirubin 1.5 ->
2.2 and LDH 344 > 325 (1.5x normal limit) --Reticulocyte count 1.5 wnl, direct Miko negative, LDH mildly elevated, fibrinogen wnl.
Hx a.fib --Currently in sinus rhythm --Hold Eliquis--On diltiazem and metoprolol - diltiazem held today due to systolic BP <120. Still due for metoprolol pm dose.
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 Repaired mitral valve with well-seated mitral annuloplasty, mild MR, normal
functioning bioprosthetic arctic valve, trace regurgitation---spironolactone d/c by PCP prior to admission, on metoprolol --Lasix on hold - monitor daily weights and restart if start to increase
Hx Cardiac Cath successful multivessel intervention involving circ and RCA dz 08/2017/Mitral valve repair and coronary artery bypass grafting x 1 using SV to ramus--ASA on hold--Cont atorvastatin
HLD--On atorvastatin
Alzheimer's--On rivastigmine
Hx DAMIAN
Hx thoracic aneurysm ascending aorta, short axis diameter of 5.0 cm 04/17 CT chest
Hx subarachnoid bleed/TIA
Hx colon polyps
DVT proph-- SCD
code status--Full code
Original Note:
Today's Communication/Plan
-
Bone marrow biopsy
Results pending
Plan for endoscopy tomorrow
Assessment / Plan
Assessment / Plan
84-year-old male presenting with fatigue and dizziness with found pancytopenia and possible acute blood loss anemia.
Acute blood loss anemia secondary to suspected GI bleed
--Known Barrettes esophagus, single angiectasia and other angiectasia
--Does not appear to be in active brisk bleed
--Hg appears stable s/p 2 units blood
--IV PPI
--Hold eliquis
--likely endoscopic eval per GI 06/26 to allow for 2 day eliquis wash out
--Transfuse for hg <8 per GI
--Trend H&H and monitor vitals
Pancytopenia
Macrocytic anemia
Possible hemolytic anemia
--s/p 2 units plt - keep ptl >40,000 per heme/onc
--In light of if active bleeding, goal to keep ptl >50
--Indirect bilirubin 1.5 -> 2.2 and LDH 344 > 325 (1.5x normal limit)
--Reticulocyte count 1.5 wnl, direct Miko negative, LDH mildly elevated, fibrinogen wnl.
--No clear evidence of hemolysis given the above per heme-onc. Bone marrow biopsy approved and results pending.
--Monitor
Hx a.fib
--Currently in sinus rhythm
--Hold Eliquis in setting of possible active bleed
--On diltiazem and metoprolol - diltiazem held today due to systolic BP <120. Still due for metoprolol pm dose.
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
-- BNP 2680, echo 05/13/2025 with ventricular ejection fraction 60 to 65%, mild concentric left ventricular hypertrophy. Repaired mitral valve with well-seated mitral annuloplasty, mild MR, normal functioning bioprosthetic arctic valve, trace
regurgitation.
--spironolactone d/c by PC prior to admission, on metoprolol
--Lasix on hold - monitor daily weights and restart if start to increase
Hx Cardiac Cath successful multivessel intervention involving circ and RCA dz 08/2017
Mitral valve repair and coronary artery bypass grafting x 1 using SV to ramus
--ASA on hold
--Cont atorvastatin
HLD
--On atorvastatin
Alzheimer's
--On rivastigmine
Hx DAMIAN
Hx thoracic aneurysm ascending aorta, short axis diameter of 5.0 cm 04/17 CT chest
Hx subarachnoid bleed/TIA
Hx colon polyps
DVT - SCD
Full code
Anticipated Discharge: > 48 hours
Subjective/Interval History
-
Date of Service: June 25, 2025
Feeling more energized than before. Less fatigued.
Objective Data
-
Labs:
Laboratory Results
06/25/25
07:51
WBC 5.5
Hgb 8.2 L
Hct 23.3 L
Plt Count 22 L*
Sodium 138
Potassium 4.5
Chloride 112 H
Carbon Dioxide 24
BUN 22 H
Creatinine 1.1
Glucose 90
Calcium 7.9 L
Total Bilirubin 2.6 H D
AST 15 L
ALT 11
Alkaline Phosphatase 70
Vital Signs:
Vital Signs
Temp Pulse Resp BP Pulse Ox
97.5 F 64 18 134/64 97
06/25/25 15:30 06/25/25 15:30 06/25/25 15:30 06/25/25 15:30 06/25/25 15:30
I&O
06/24/25 06/25/25 06/26/25
06:59 06:59 06:59
Intake Total 1969 280 / 280
Balance 1969 280 / 280
Review of Systems
-
History Source: Patient
Constitutional: Reports No Symptoms
EENT: Reports No Symptoms Reported
Respiratory: Reports No Symptoms
Cardiac: Reports No Symptoms
Abdomen/GI: Reports Abdominal Pain, Nausea, Black Stools and Indigestion
Neuro: Reports No Symptoms
Physical Exam
-
General: No Apparent Distress and Comfortable
HEENT: Normocephalic
Respiratory: Clear to Auscultation
Cardiac: Regular Rhythm, S1/S2 and Murmur
GI: Soft, Nondistended, Normal Bowel Sounds and Tender (slight generalized tenderness)
Musculoskeletal: No Cyanosis and No Edema
Skin: Warm and Dry
Neuro: AO x 3
Psych: Calm
--- NOTE | 2025-06-25 16:29 | CM ---
Patient seen at bedside with physicians and patient on . Patient expressed concerns about patient hearing and needing to ask questions slowly. CM will continue to follow for discharge planning needs. Pending physician
recommendations. CM will continue to follow for discharge planning needs.
Plan;home with VN vs home with no needs
[2025-06-25 16:56] LABS: Hematocrit 23.3 % (39.0-52.0); Hemoglobin 8.1 g/dL (13.0-18.0); Mean Corp Hgb Conc. 34.8 g/dL (33.0-37.0); Mean Corpuscular Volume 93.2 fL (80.0-94.0); Platelet Count 30 10^3/uL (130-400); Red Cell Dist. Width 16.7 % (11.5-14.5)
[2025-06-25 17:40] LABS: Nucleated Red Blood Cells % 2.0 % (-)
[2025-06-25] MEDS: LIPITOR 40 MG PO (18:44)
[2025-06-25] MEDS: TOPROL XL 50 MG PO (18:44)
--- NOTE | 2025-06-25 18:54 | W.PN.UPDATE ---
Update Note
Progress Note Update
iVto's platelets were 30 this afternoon after 1 unit platelets transfused this am (2 total so far). Goal >40 per heme/onc with concerns of active GI bleed. Ordering 1 unit platelets. Hg 8.1.
[2025-06-26] VITALS (10 sets, daily range): BP systolic 101–124; BP diastolic 51–61; PULSE 70; BMI 26.2
--- NOTE | 2025-06-26 08:14 | W.PN.ONC2 ---
Today's Communication / Plan
-
follow CBC
follow BMBx results
transfuse prn
check uric acid
Impression
Impression
Thrombocytopenia, no DIC with nml fibrinogen -s/p 3U SDP during hospitalization
macrocytic Anemia, no B12, folate, iron deficiency. Less likely hemolysis based on LFTs, LDH, retic-s/p 2UPRBC during hospitalization
left shift (5% myelocytes), lymphopenia, not neutropenic
dark 'black' stool
Plan
Plan
DOAC on hold
f/u BMBx results, done 06/25/2025
GI to consider EGD after Eliquis washout.
follow up haptoglobin
transfuse Hgb <7 or as needed for sxs anemia
transfuse platelets <10, <20 if febrile, <50 if bleeding or pre-procedure
avoid nsaids, antiplatelet, and anticoagulation with platelet count <50,000
Subjective/Objective
Subjective
black stool this morning
BMBx site sore
ambulating
Vital Signs:
Vital Signs
Temp Pulse Resp BP Pulse Ox
98.9 F 62 18 106/55 92
06/26/25 03:27 06/26/25 03:27 06/26/25 03:27 06/26/25 03:27 06/26/25 03:27
Lab Results:
Laboratory Data
WBC 5.1 10^3/uL (4.8-10.8) 06/25/25 16:30
Hgb 8.1 g/dL (13.0-18.0) L 06/25/25 16:30
Plt Count 30 10^3/uL (130-400) L D 06/25/25 16:30
PT 17.5 Sec (11.4-14.6) H 06/24/25 12:59
INR 1.38 06/24/25 12:59
APTT 34.4 Sec (23.4-35.0) 06/24/25 12:59
eGFR > 60.00 06/25/25 07:51
Physical Exam
HEENT: Moist Mucous Membranes; No Jaundice
Pulmonary: Other (unlabored)
GI: Soft
Extremities: Pulses Present
[2025-06-26 08:33] LABS: Hematocrit 24.3 % (39.0-52.0); Hemoglobin 8.3 g/dL (13.0-18.0); Mean Corp Hgb Conc. 34.2 g/dL (33.0-37.0); Mean Corpuscular Volume 93.8 fL (80.0-94.0); Platelet Count 41 10^3/uL (130-400); Red Cell Dist. Width 16.4 % (11.5-14.5)
[2025-06-26 08:54] LABS: ALT (SGPT) 11 U/L (0-50); AST (SGOT) 15 U/L (17-59); Albumin 3.2 g/dl (3.5-5.0); Alkaline Phosphatase 75 U/L (38-126); Blood Urea Nitrogen 19 mg/dl (9-20); Calcium 7.9 mg/dl (8.4-10.2); Carbon Dioxide 23 mmol/L (22-30); Chloride 109 mmol/L (98-107); Estimated Creatinine Clearance 47 ml/min; Glucose 88 mg/dl (70-99); Potassium 4.4 mmol/L (3.5-5.1); Sodium 136 mmol/L (135-145); Total Protein 5.4 g/dl (6.3-8.2); eGFR > 60.00
[2025-06-26 09:43] LABS: Absolute Neutrophils -Man Diff 1.7 10^3/uL (1.4-6.5); Anisocytosis Slight; Normal RBC Morphology No; Ovalocytes Slight; Platelets Checked Yes; Total Cells Counted 100
[2025-06-26] MEDS: TYLENOL 650 MG PO (10:04)
[2025-06-26] MEDS: PROTONIX IV 40 MG IV ×2 (10:05→20:04)
[2025-06-26] MEDS: EXELON 3 MG PO ×2 (10:05→20:04)
[2025-06-26] MEDS: NSS (PRESERVATIVE FREE) 10 ML IV ×2 (10:05→20:11)
--- NOTE | 2025-06-26 10:34 | W.PN.HOSP.TC ---
Addendum entered and electronically signed by Brittany Rodriguez MD 06/26/25 17:24:
I saw and evaluated the patient independently. I reviewed the resident�s note and agree with findings and plan as documented by Dr. Campos.
GENERAL:elderly male in no apparent distress
HEENT: NC/AT--no O2 requirements
HEART: regular rate and rhythm, +S1, +S2
LUNGS : clear to auscultation bilaterally
ABDOM: soft, nontender, nondistended, + bowel sounds
EXT: no cyanosis, clubbing, or edema
NEUROLOGIC: grossly intact--slower to respond
Acute blood loss anemia on chronic anemia secondary to suspected GI bleed--Known Griffin's esophagus, single angiectasia and other angiectasia--s/p 3 units pRBC and 3 platelets--apprec GI--Eliquis washout then EGD--EGD with duodenitis and duodenal
polyp--cont IV PPI--Transfuse for hg <8 per GI --Trend H&H and monitor vitals
Pancytopenia/Macrocytic anemia/Possible hemolytic anemia although suspect for bone marrow dysfunction (MDS?)--apprec heme onc--s/p bone marrow biopsy---s/p 2 units plt - keep ptl >40,000 per heme/onc-- goal to keep ptl >50--Indirect bilirubin 1.5 ->
2.2 and LDH 344 > 325 (1.5x normal limit) --Reticulocyte count 1.5 wnl, direct Miko negative, LDH mildly elevated, fibrinogen wnl.
Hx a.fib --Currently in sinus rhythm --restart Eliquis--On diltiazem and metoprolol
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 Repaired mitral valve with well-seated mitral annuloplasty, mild MR, normal
functioning bioprosthetic arctic valve, trace regurgitation---spironolactone d/c by PCP prior to admission, on metoprolol --Lasix on hold - monitor daily weights and restart if start to increase
Hx Cardiac Cath successful multivessel intervention involving circ and RCA dz 08/2017/Mitral valve repair and coronary artery bypass grafting x 1 using SV to ramus--ASA on hold--Cont atorvastatin
HLD--On atorvastatin
Alzheimer's--On rivastigmine
Hx DAMIAN
Hx thoracic aneurysm ascending aorta, short axis diameter of 5.0 cm 04/17 CT chest
Hx subarachnoid bleed/TIA
Hx colon polyps
DVT proph-- SCD
code status--Full code
anticipate home tomorrow
Original Note:
Today's Communication/Plan
-
EKG and trop for twinge of chest pain overnight to rule out ACS
EGD today
Repeat CBC in pm to trend hg and ptl
Assessment / Plan
Assessment / Plan
84-year-old male presenting with fatigue and dizziness with found pancytopenia and possible acute blood loss anemia.
Acute blood loss anemia secondary to suspected GI bleed
--Known Barrettes esophagus, single angiectasia and other angiectasia
--Does not appear to be in active brisk bleed
--Hg appears stable s/p 2 units blood
--IV PPI
--Hold eliquis
--likely endoscopic eval per GI 06/26 to allow for 2 day eliquis wash out
--Transfuse for hg <8 per GI
--Trend H&H and monitor vitals
Pancytopenia
Macrocytic anemia
Possible hemolytic anemia
--s/p 2 units plt - keep ptl >40,000 per heme/onc - required additional 1 unit platelets 06/25. Today pt 41.
--In light of if active bleeding, goal to keep ptl >50
--Reticulocyte count 1.5 wnl, direct Miko negative, LDH mildly elevated, fibrinogen wnl.
--Haptoglobin pending
--No clear evidence of hemolysis given the above per heme-onc. Bone marrow biopsy approved and results pending.
--Monitor
Chest pain
--1 'twinge' episode of chest pain last night while laying in bed. No complaints of continuation this am. No events on tele overnight.
--States he sometimes gets similar pain with exertion outside the hospital - likely angina
--Missed last two doses of CCB due to low BP which could be contributing to symptoms
--EKG and trop to rule out ACS - likely f/u cardiology outpatient
Hx a.fib
--Currently in sinus rhythm
--Hold Eliquis in setting of possible active bleed
--On diltiazem and metoprolol - diltiazem held 06/25 and 06/26 due to systolic BP <120. Still receiving pm metoprolol dose
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
-- BNP 2680, echo 05/13/2025 with ventricular ejection fraction 60 to 65%, mild concentric left ventricular hypertrophy. Repaired mitral valve with well-seated mitral annuloplasty, mild MR, normal functioning bioprosthetic arctic valve, trace
regurgitation.
--spironolactone d/c by PC prior to admission, on metoprolol
--Lasix on hold - monitor daily weights and restart if start to increase
Hx Cardiac Cath successful multivessel intervention involving circ and RCA dz 08/2017
Mitral valve repair and coronary artery bypass grafting x 1 using SV to ramus
--ASA on hold due to active bleed and thrombocytopenia
--Cont atorvastatin
HLD
--On atorvastatin
Alzheimer's
--On rivastigmine
Hx DAMIAN on CPAP 4cmH2O
Hx thoracic aneurysm ascending aorta, short axis diameter of 5.0 cm 04/17 CT chest
Hx subarachnoid bleed/TIA
Hx colon polyps
DVT - SCD
Full code
Anticipated Discharge: > 48 hours
Subjective/Interval History
-
Date of Service: June 26, 2025
Feels like abdominal discomfort improving. Lyman a twinge of chest pain overnight that quickly went away. Has had similar episodes on the past often related to exertion. No complaints of chest pain or heart palpitations currently.
Objective Data
-
Labs:
Laboratory Results
06/26/25
07:40
WBC 4.6 L
Hgb 8.3 L
Hct 24.3 L
Plt Count 41 L D
Sodium 136
Potassium 4.4
Chloride 109 H
Carbon Dioxide 23
BUN 19
Creatinine 1.1
Glucose 88
Calcium 7.9 L
Total Bilirubin 2.5 H
AST 15 L
ALT 11
Alkaline Phosphatase 75
Vital Signs:
Vital Signs
Temp Pulse Resp BP Pulse Ox
97.8 F 61 20 116/60 96
06/26/25 07:00 06/26/25 09:57 06/26/25 07:00 06/26/25 09:57 06/26/25 07:00
I&O
06/25/25 06/26/25 06/27/25
06:59 06:59 06:59
Intake Total 1969
Balance 1969
Review of Systems
-
History Source: Patient
Constitutional: Reports No Symptoms
EENT: Reports No Symptoms Reported
Cardiac: Reports No Symptoms
Abdomen/GI: Reports No Symptoms
Neuro: Reports No Symptoms
Physical Exam
-
General: No Apparent Distress and Comfortable
HEENT: Normocephalic
Respiratory: Clear to Auscultation
Cardiac: Regular Rhythm, S1/S2 and Murmur
GI: Soft, Nontender, Nondistended and Normal Bowel Sounds
Musculoskeletal: No Cyanosis and No Edema
Skin: Warm and Dry
Neuro: AO x 3
Psych: Calm
[2025-06-26 12:06] LABS: LDH 291 U/L (120-246); Uric Acid 5.7 mg/dl (3.5-8.5)
[2025-06-26 16:39] LABS: Hematocrit 22.8 % (39.0-52.0); Hemoglobin 8.0 g/dL (13.0-18.0); Mean Corp Hgb Conc. 35.1 g/dL (33.0-37.0); Mean Corpuscular Volume 93.1 fL (80.0-94.0); Platelet Count 39 10^3/uL (130-400); Red Cell Dist. Width 16.1 % (11.5-14.5)
[2025-06-26 16:58] LABS: Troponin I < 0.012 ng/ml
[2025-06-26] MEDS: TOPROL XL 50 MG PO (17:40)
[2025-06-26] MEDS: LIPITOR 40 MG PO (17:41)
[2025-06-26] MEDS: ANESTHETIC LOZENGE 1 LOZENGE PO (22:26)
[2025-06-27 02:53] VITALS: BP 105/55
[2025-06-27] MEDS: ANESTHETIC LOZENGE 1 LOZENGE PO (05:14)
[2025-06-27] MEDS: TYLENOL 650 MG PO (05:14)
[2025-06-27 05:18] VITALS: BMI 26.1
[2025-06-27 07:25] VITALS: BP 112/60
[2025-06-27 08:26] LABS: Hematocrit 24.8 % (39.0-52.0); Hemoglobin 8.4 g/dL (13.0-18.0); Mean Corp Hgb Conc. 33.9 g/dL (33.0-37.0); Mean Corpuscular Volume 95.0 fL (80.0-94.0); Platelet Count 34 10^3/uL (130-400); Red Cell Dist. Width 16.3 % (11.5-14.5)
[2025-06-27] MEDS: EXELON 3 MG PO (08:37)
[2025-06-27] MEDS: NSS (PRESERVATIVE FREE) 10 ML IV (08:38)
[2025-06-27] MEDS: PROTONIX IV 40 MG IV (08:38)
[2025-06-27 08:47] LABS: ALT (SGPT) 11 U/L (0-50); AST (SGOT) 15 U/L (17-59); Albumin 3.1 g/dl (3.5-5.0); Alkaline Phosphatase 81 U/L (38-126); Blood Urea Nitrogen 18 mg/dl (9-20); Calcium 7.8 mg/dl (8.4-10.2); Carbon Dioxide 23 mmol/L (22-30); Chloride 111 mmol/L (98-107); Estimated Creatinine Clearance 47 ml/min; Glucose 104 mg/dl (70-99); Potassium 4.4 mmol/L (3.5-5.1); Sodium 137 mmol/L (135-145); Total Protein 5.3 g/dl (6.3-8.2); eGFR > 60.00
[2025-06-27 08:54] LABS: Nucleated Red Blood Cells % 1.8 % (-)
--- NOTE | 2025-06-27 08:54 | W.PN.HOSP.TC ---
Addendum entered and electronically signed by Brittany Rodriguez MD 07/04/25 07:27:
Path confirmed MDS as valid diagnosis. Path was not back when we discharged him.
Addendum entered and electronically signed by Brittany Rodriguez MD 06/27/25 15:40:
I saw and evaluated the patient independently. I reviewed the resident�s note and agree with findings and plan as documented by Dr. Campos.
GENERAL:elderly male in no apparent distress--very talkative today--saw him walking in the hallway
HEENT: NC/AT--no O2 requirements
HEART: regular rate and rhythm, +S1, +S2, LIOR
LUNGS : clear to auscultation bilaterally
ABDOM: soft, nontender, nondistended, + bowel sounds
EXT: no cyanosis, clubbing, or edema
NEUROLOGIC: grossly intact--slower to respond
Acute blood loss anemia on chronic anemia secondary to suspected GI bleed--Known Griffin's esophagus, single angiectasia and other angiectasia--s/p 3 units pRBC and 3 platelets--apprec GI--Eliquis washout then EGD--EGD with duodenitis and duodenal
polyp--cont PPI--Transfuse for hgb <8 per GI --Trend H&H and monitor vitals
Pancytopenia/Macrocytic anemia/Possible hemolytic anemia although suspect for bone marrow dysfunction (MDS?)--apprec heme onc--s/p bone marrow biopsy, results pending---s/p 2 units plt - keep ptl >40,000 per heme/onc-- goal to keep ptl >50--Indirect
bilirubin 1.5 -> 2.2 and LDH 344 > 325 (1.5x normal limit) --Reticulocyte count 1.5 wnl, direct Sukhdeep negative, LDH mildly elevated, fibrinogen wnl.
Hx a.fib --Currently in sinus rhythm --restart Eliquis--On diltiazem and metoprolol
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 Repaired mitral valve with well-seated mitral annuloplasty, mild MR, normal
functioning bioprosthetic arctic valve, trace regurgitation---spironolactone d/c by PCP prior to admission, on metoprolol --Lasix restarting - monitor daily weights and restart if start to increase
Hx Cardiac Cath successful multivessel intervention involving circ and RCA dz 08/2017/Mitral valve repair and coronary artery bypass grafting x 1 using SV to ramus--ASA on hold--Cont atorvastatin
HLD--On atorvastatin
Alzheimer's--On rivastigmine
Hx DAMIAN
Hx thoracic aneurysm ascending aorta, short axis diameter of 5.0 cm 04/17 CT chest
Hx subarachnoid bleed/TIA
Hx colon polyps
DVT proph-- SCD
code status--Full code
Original Note:
Today's Communication/Plan
-
Discharge with pantoprazole 40mg daily, cont eliquis 2.5 BID, hold asa until see PCP
f/u with heme/onc, GI and FM outpatient
Assessment / Plan
Assessment / Plan
84-year-old male presenting with fatigue and dizziness with found pancytopenia and possible acute blood loss anemia.
Acute blood loss anemia secondary to suspected GI bleed
--Known Barrettes esophagus, single angiectasia and other angiectasia
--Does not appear to be in active brisk bleed
--Hg appears stable s/p 2 units blood
--EGD revealed no significant findings - GI suspected previously oozed in setting of thrombocytopenia and anticoagulation
--Gastric biopsy results benign
--Okay to restart anti-coagulation per GI
--Transfuse for hg <8 per GI
--Trend H&H and monitor vitals
Pancytopenia
Macrocytic anemia
Possible hemolytic anemia
--s/p 3 units plt - Today ptl 34 which is okay as currently no concern for active bleed.
--Haptoglobin pending although not likely hemolytic anemia and direct sukhdeep (-), reticulocyte count 1.1 wnl and LDH only mildly elevated
--No clear evidence of hemolysis given the above per heme-onc. Bone marrow biopsy results pending.
--F/u with heme/onc in the outpatient setting for results of biopsy.
Chest pain
--1 'twinge' episode of chest pain last night while laying in bed 06/25. No complaints of today. No events on tele.
--States he sometimes gets similar pain with exertion outside the hospital - likely angina
--Missed last two doses of CCB due to low BP which could be contributing to symptoms
--EKG and trop (-)
--F/u with cardiology outpatient if continues
Hx a.fib
--Currently in sinus rhythm
--restart eliquis 2.5
--Discharge with diltiazem on hold until sees PCP as could not give to pt during his stay here due to low BP. Continue metoprolol in evenings.
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
-- BNP 2680, echo 05/13/2025 with ventricular ejection fraction 60 to 65%, mild concentric left ventricular hypertrophy. Repaired mitral valve with well-seated mitral annuloplasty, mild MR, normal functioning bioprosthetic arctic valve, trace
regurgitation.
--spironolactone d/c by PC prior to admission, on metoprolol
--restart lasix at discharge
Hx Cardiac Cath successful multivessel intervention involving circ and RCA dz 08/2017
Mitral valve repair and coronary artery bypass grafting x 1 using SV to ramus
--ASA on hold due to thrombocytopenia and on eliquis for a.fib.
--Cont atorvastatin
HLD
--On atorvastatin
Alzheimer's
--On rivastigmine
Hx DAMIAN on CPAP 4cmH2O
Hx thoracic aneurysm ascending aorta, short axis diameter of 5.0 cm 04/17 CT chest
Hx subarachnoid bleed/TIA
Hx colon polyps
DVT - SCD
Full code
Anticipated Discharge: Today
Subjective/Interval History
-
Date of Service: June 27, 2025
Patient feeling significantly better than before. GI tract feels a lot better and no more dizziness.
Objective Data
-
Labs:
Laboratory Results
06/27/25
07:58
WBC 4.4 L
Hgb 8.4 L
Hct 24.8 L
Plt Count 34 L
Sodium 137
Potassium 4.4
Chloride 111 H
Carbon Dioxide 23
BUN 18
Creatinine 1.1
Glucose 104 H
Calcium 7.8 L
Total Bilirubin 1.4 H D
AST 15 L
ALT 11
Alkaline Phosphatase 81
Vital Signs:
Vital Signs
Temp Pulse Resp BP Pulse Ox
98.3 F 60 22 112/60 97
06/27/25 07:25 06/27/25 07:25 06/27/25 07:25 06/27/25 07:25 06/27/25 07:25
I&O
06/26/25 06/27/25 06/28/25
06:59 06:59 06:59
Intake Total 2290 / 2290 360 / 360
Output Total 300 / 300
Balance 2290 / 2290 60 / 60
Review of Systems
-
History Source: Patient
EENT: Reports No Symptoms Reported
Respiratory: Reports No Symptoms
Cardiac: Reports No Symptoms
Abdomen/GI: Reports No Symptoms
Neuro: Reports No Symptoms
Physical Exam
-
General: No Apparent Distress
HEENT: Normocephalic
Respiratory: Clear to Auscultation
Cardiac: Regular Rhythm, S1/S2 and Murmur
GI: Soft, Nontender, Nondistended and Normal Bowel Sounds
Musculoskeletal: No Cyanosis and No Edema
Skin: Warm and Dry
Neuro: AO x 3
Psych: Calm
[2025-06-27 11:03] VITALS: BP 118/58; PULSE 63; O2SAT 96
[2025-06-27 11:05] VITALS: BP 118/58
[2025-06-27 11:42] VITALS: BP 118/58
[2025-06-27 15:40] VITALS: BP 116/63
--- NOTE | 2025-06-27 15:49 | W.DCSUMMARY ---
Addendum entered and electronically signed by Brittany Rodriguez MD 06/27/25 19:22:
Read, reviewed, and agree. See same day progress note for additional details. Time spent coordinating care, DC planning, review of DC plan of care with resident, transition of care, review of records in EMR, med rec, consults, notes, d/w
consultants, nursing, family, and CM = 40 minutes
Original Note:
Discharge Summary
Discharge Data
Date of Admission: 06/24/25
Date of Discharge: 06/27/25
-
Pending Results: Yes
Additional Pending Results:
Bone Marrow Biopsy
Hospital Course
Primary Diagnosis:
Acute on chronic blood loss anemia secondary to GI bleed
Pancytopenia
Secondary Diagnosis:
Paroxysmal atrial fibrillation
Combined systolic and diastolic heart failure
CAD status post stents
Hyperlipidemia
Alzheimer's
Obstructive sleep apnea
Hospital course:
84M male presented to [facility] for ongoing fatigue, dizziness, nausea and dark stools. Hemoglobin was found to be 6.8, platelets 14, WBC 7.1, segmented neutrophils 22. He was given a unit of blood, 2 units of platelets, and hematology
oncology and GI were consulted and he was admitted for further evaluation. Given history of Griffin's esophagus and colonic angiectasia, GI agreed to do endoscopy after patient's last dose of Eliquis washed out. Endoscopy was unremarkable for
acute cause. GI suspected that patient started to ooze blood in setting of thrombocytosis and anticoagulation contributing to his low hemoglobin. Hematology oncology ordered labs which ruled out hemolytic anemia and ultimately suspected underlying
bone marrow disorder. Bone biopsy was approved and done. Bone biopsy results are pending. During his admission, morning blood pressures were soft and home diltiazem was held. He remained in sinus rhythm during the duration of his stay. He did
have a twinge of chest pain one evening so EKG and trops were done which came back (-). Recommend f/u with cardiology outpatient if continuation. In total he required 2 units of blood and 3 units platelets.
Today, patient is stable for discharge. He is okay to restart Eliquis per GI. Will continue to hold aspirin until further evaluation with primary care doctor given thrombocytopenia and recent bleed. Bone biopsy results are pending and Vito will
need to follow-up with heme-onc outpatient. Diltiazem put on hold until follow-up with primary care doctor or technical programs manager as blood pressure has been soft during admission.
Further discussion regarding continuation of Eliquis to be continued with primary care doctor given GI bleed and history of subarachnoid hemorrhage in chart.
Discharge Plan
-
Patient Disposition: Home (Routine Discharge)
Discharge Diagnosis/Procedures: acute on chronic blood loss anemia from upper gastrointestinal bleed, pancytopenia, possible bone marrow disorder
Condition: Fair
Diet: As tolerated
Activity: As tolerated
Driving Restrictions: As prior to admission
Bathing Restrictions: None
Other Services: VN
Referrals:
Rambo Mcdowell MD [Family Provider, Family Practice] - in less than 1 week
Blas Murray MD [Active, Gastroenterology] - in two to three weeks
Adi Hutchinson MD [Active, Hematology / Oncology] - in one to two weeks
Additional Discharge Medication Instructions: Bone marrow biopsy is pending. Please schedule a follow up with oncology. Continue Eliquis, but stop aspirin until you see your PCP. Hold your Diltiazem until you see your PCP. Start taking pantoprazole
40mg once daily until you follow up with GI. If you see dark stools again, please let your doctor know.
Prescriptions:
New
pantoprazole 40 mg tablet,delayed release (DR/EC)
40 mg PO DAILY Qty: 30 0RF
Continued
atorvastatin 40 MG tablet
40 mg PO QPM Qty: 30 0RF
furosemide 20 MG tablet
20 mg PO DAILY
polyethylene glycol 3350 [ClearLax] 17 GM powder in packet
17 gm PO DAILYPRN PRN (Reason: constipation)
metoprolol succinate 50 MG tablet extended release 24 hr
50 mg PO QPM
Eliquis 2.5 mg Tablet
2.5 mg PO BID
Rx Instructions:
patient has free samples
pilocarpine HCl 1 % Drops
1 drp BOTH EYES BID
acetaminophen [Tylenol Extra Strength] 500 mg Tablet
500 mg PO Q6HPRN PRN (Reason: mild pain)
rivastigmine tartrate 3 mg Capsule
3 mg PO BID
magnesium oxide 200 mg magnesium Tablet
600 mg PO DAILY
Held
aspirin 81 MG tablet,delayed release (DR/EC)
81 mg PO DAILY 0RF
Hold Instructions: Until you see your family medicine doctor.
diltiazem HCl 120 MG capsule,extended release 24hr
120 mg PO DAILY Qty: 30 2RF
Hold Instructions: Until you see your family medicine doctor or technical programs manager as your blood pressure has been on the lower side here at the hospital.
ferrous sulfate 325 mg (65 mg iron) Tablet
325 mg PO DAILY
Hold Instructions: Iron levels are good. Check with your family medicine doctor before re-starting.
Discontinued
pantoprazole 40 MG tablet,delayed release (DR/EC)
40 mg PO DAILY
Discharge Orders:
Discharge Patient (As Directed); Ordered 06/27/25
Ordered By: Khushi Campos
Discharge Date and Time
Print Language: OCCITAN
--- NOTE | 2025-06-27 17:05 | CM ---
Patient seen at bedside with physicians. Patient for discharge home today. CM reviewed IMM and signed form placed on chart. CM attempted to reach patient and without sucess, VM left. CM attempted to call to patient room without success also. CM
updated nursing. CM will send referral to [facility] following discussions with physician and for patient . CM will continue to follow for discharge planning needs.
Plan; home with VN; referral sent to [facility] pending acceptance.
--- NOTE | 2025-07-03 10:57 | PN.CDI ---
CDI
- -
CDI:
Physician Documentation Request
Admit Date: [f_Reg Admit Date Time]
Dear Doctor Michael
Please review the following and provide your response in the progress notes.
Clinical Indicators:
The diagnosis of Myelodysplastic neoplasm was included in the signed path report.
Additional clinical indicators in the chart include:
PN 8/ ..suspect for bone marrow dysfunction (MDS?)
Please indicate in your progress notes if you are in agreement that the above diagnosis is valid for this patient:
Myelodysplastic disease is a valid diagnosis (Please include it in your progress notes)
Myelodysplastic disease is not a valid diagnosis for this patient
Myelodysplastic disease is not yet confirmed but remains a suspected condition
____ - Other
____ - Unable to determine
Use of terms such as suspected, likely, concern for, or probable are acceptable for a diagnosis that is being evaluated, monitored or treated as if it exists and can be coded in the inpatient setting, when documented at the time of discharge.
Thank you,
Mary Doty
Product Marketing Specialist Inpatient
Please use your independent medical judgment in providing your response.
== END 2025-06-27 17:27 | disposition home health service (06) | DRG 811 ==
LOC: 4 WEST ACU 14:30
PROVIDERS: Emergency Medicine; Internal Medicine Hematology & Oncology; Physician Assistant Medical; Radiology Vascular & Interventional Radiology; Student in an Organized Health Care Education/Training Program; ADMITTING PHYSICIAN Hospitalist; ATTENDING PHYSICIAN Internal Medicine; CONSULT PHYSICIAN Internal Medicine Hematology & Oncology; EMERGENCY PHYSICIAN Emergency Medicine; FAMILY PHYSICIAN Family Medicine; OTHER PHYSICIAN Internal Medicine Gastroenterology
PROC: 30233N1 Transfusion of Nonautologous Red Blood Cells into Peripheral Vein, Percutaneous Approach (ICD-10-PCS; 2025-06-24)
PROC: 30233R1 Transfusion of Nonautologous Platelets into Peripheral Vein, Percutaneous Approach (ICD-10-PCS; 2025-06-24)
PROC: 07DR3ZX Extraction of Iliac Bone Marrow, Percutaneous Approach, Diagnostic (ICD-10-PCS; 2025-06-25)
PROC: 079T3ZX Drainage of Bone Marrow, Percutaneous Approach, Diagnostic (ICD-10-PCS; 2025-06-25)
PROC: 0DB98ZZ Excision of Duodenum, Via Natural or Artificial Opening Endoscopic (ICD-10-PCS; 2025-06-26)
PROC: 0DB68ZX Excision of Stomach, Via Natural or Artificial Opening Endoscopic, Diagnostic (ICD-10-PCS; 2025-06-26)
PROC: 0DB98ZX Excision of Duodenum, Via Natural or Artificial Opening Endoscopic, Diagnostic (ICD-10-PCS; 2025-06-26)
DX: D46.9 Myelodysplastic syndrome, unspecified (principal); K29.81 Duodenitis with bleeding; D62 Acute posthemorrhagic anemia; I50.42 Chronic combined systolic (congestive) and diastolic (congestive) heart failure; D68.32 Hemorrhagic disorder due to extrinsic circulating anticoagulants; F02.84 Dementia in other diseases classified elsewhere, unspecified severity, with anxiety; D61.818 Other pancytopenia; E11.9 Type 2 diabetes mellitus without complications; I25.10 Atherosclerotic heart disease of native coronary artery without angina pectoris; I48.0 Paroxysmal atrial fibrillation; I11.0 Hypertensive heart disease with heart failure; G30.9 Alzheimer's disease, unspecified; K44.9 Diaphragmatic hernia without obstruction or gangrene; K31.7 Polyp of stomach and duodenum; T45.515A Adverse effect of anticoagulants, initial encounter; I25.5 Ischemic cardiomyopathy; K21.9 Gastro-esophageal reflux disease without esophagitis; Z95.1 Presence of aortocoronary bypass graft; Z95.5 Presence of coronary angioplasty implant and graft; Z95.3 Presence of xenogenic heart valve; Z88.8 Allergy status to other drugs, medicaments and biological substances; Z88.1 Allergy status to other antibiotic agents; Z88.0 Allergy status to penicillin; G47.33 Obstructive sleep apnea (adult) (pediatric); Z86.79 Personal history of other diseases of the circulatory system; E78.00 Pure hypercholesterolemia, unspecified; Z85.46 Personal history of malignant neoplasm of prostate; Z79.899 Other long term (current) drug therapy; Z79.01 Long term (current) use of anticoagulants; Z79.82 Long term (current) use of aspirin
CPT/HCPCS: 36430; 38222; 70450; 77012; 80053; 82248; 82607; 82728; 82746; 83010; 83540; 83550; 83615; 83735; 83880; 84153; 84484; 84550; 85014; 85018; 85025; 85027; 85045; 85049; 85384; 85610; 85730; 86850; 86880; 86900; 86901; 86920; 87070; 88305; 88311; 88312; 88313; 88342; 93005; 94660; 96374; 97110; 97116; 97162; 97167; 99291; P9016; P9073

== ENCOUNTER 2025-07-04 13:35 | Inpatient (IN) | payer MEDICARE, OTHER, SELFPAY ==
[2025-07-04] VITALS (15 sets, daily range): BP systolic 91–167; BP diastolic 49–83; BMI 27.1
[2025-07-04 11:26] LABS: Hematocrit 19.2 % (39.0-52.0); Hemoglobin 6.4 g/dL (13.0-18.0); Mean Corp Hgb Conc. 33.3 g/dL (33.0-37.0); Mean Corpuscular Volume 95.0 fL (80.0-94.0); Platelet Count 16 10^3/uL (130-400); Red Cell Dist. Width 16.4 % (11.5-14.5)
[2025-07-04 11:40] LABS: ALT (SGPT) 12 U/L (0-50); AST (SGOT) 14 U/L (17-59); Albumin 3.4 g/dl (3.5-5.0); Alkaline Phosphatase 61 U/L (38-126); Blood Urea Nitrogen 25 mg/dl (9-20); Calcium 8.3 mg/dl (8.4-10.2); Carbon Dioxide 27 mmol/L (22-30); Chloride 107 mmol/L (98-107); Glucose 126 mg/dl (70-99); Potassium 4.0 mmol/L (3.5-5.1); Sodium 139 mmol/L (135-145); Total Protein 5.8 g/dl (6.3-8.2); eGFR 59.63
[2025-07-04 11:41] LABS: INR 1.50; PT 18.4 Sec (11.4-14.6)
[2025-07-04 11:42] LABS: APTT 43.4 Sec (23.4-35.0)
[2025-07-04 11:47] LABS: Absolute Neutrophils -Man Diff 1.9 10^3/uL (1.4-6.5); Normal RBC Morphology Yes; Platelets Checked Yes; Total Cells Counted 100
--- NOTE | 2025-07-04 12:57 | HPS.HSE ---
Family Physician
-
Family Physician: Rambo Mcdowell
Chief Complaint
-
anemia
History of Present Illness
84-year-old male past medical history of paroxysmal atrial fibrillation on Eliquis, CAD status post CABG, mitral valve replacement, Griffin's esophagus, history of cerebral aneurysm status post clip, hypertension, obstructive sleep apnea, prostate
cancer presenting with low hemoglobin. He complains of fatigue and shortness of breath. He had episode of chest pain yesterday which resolved. He has been having ongoing black stool although small quantity. Denies bright red blood in the stool.
He was recently admitted for ongoing fatigue, dizziness nausea and black stools. Hemoglobin was 6.8. Platelets of 14. He was given 1 unit of blood, 2 units of platelets. He was seen by hematology and GI. EGD was unremarkable. Hematology
suspected underlying bone marrow disorder. Bone marrow biopsy was approved and performed. Eliquis was restarted. Aspirin was held.
He denies smoking or alcohol use.
Medical History
Past Medical History
Past Medical History: Reports Other (paroxysmal atrial fibrillation on Eliquis, CAD status post CABG, mitral valve replacement, Griffin's esophagus, history of cerebral aneurysm status post clip, hypertension, obstructive sleep apnea, prostate
cancer)
Past Surgical History: Reports None
Social History
Tobacco: Non-smoker
Alcohol: None
Drug: None
Family History
Family History: Not pertinent
Allergies / Home Medications
Allergies reflects when Allergies were last updated in [facility].
Home Medications with original date entered in [facility]
Allergy/Medication List:
Allergies
Allergy/AdvReac Type Severity Reaction Status Date / Time
nafcillin Allergy Unknown Verified 07/04/25 10:18
Penicillins Allergy Hives/rash, Verified 07/04/25 10:18
tolerates
cefuroxime
pseudoephedrine Allergy high blood Verified 07/04/25 10:18
pressure,
rash
vancomycin Allergy Tremor, Verified 07/04/25 10:18
rigidity,
rigor post
infusion x
2
occurrences
Home Medications
atorvastatin 40 mg tablet 40 mg PO QPM ##30 02/20/18
furosemide 20 mg tablet 20 mg PO DAILY Fluid retention/Swelling 09/27/19
polyethylene glycol 3350 17 gram oral powder packet (ClearLax) 17 gm PO DAILYPRN PRN constipation 11/29/19
metoprolol succinate 50 mg tablet,extended release 24 hr 50 mg PO QPM Heart disease/condition 08/04/20
acetaminophen 500 mg tablet (Tylenol Extra Strength) 500 mg PO Q6HPRN PRN mild pain 06/24/25
apixaban 2.5 mg tablet (Eliquis) 2.5 mg PO BID Blood Clot Prevention/Tx 06/24/25
magnesium oxide 600 mg PO DAILY Supplement 06/24/25
pilocarpine HCl 1 % eye drops 1 drp BOTH EYES BID Eye Condition 06/24/25
rivastigmine tartrate 3 mg capsule 3 mg PO BID Cognitive deficits 06/24/25
pantoprazole 40 mg tablet,delayed release 40 mg PO DAILY Gastrointestinal issue #30 tabs 06/27/25
meclizine 12.5 mg tablet 25 mg PO Q8HPRN PRN vertigo 07/04/25
Review of Systems
-
Constitutional: Reports No Symptoms
EENT: Reports No Symptoms
Respiratory: Reports No Symptoms
Cardiac: Reports No Symptoms
Abdomen/GI: Reports No Symptoms
: Reports No Symptoms
Musculoskeletal: Reports No Symptoms
Skin: Reports No Symptoms
Neurological: Reports No Symptoms
Endocrine: Reports No Symptoms
Hematologic/Lymphatic: Reports No Symptoms
Psych: Reports No Symptoms
Physical Exam
Vital Signs
Vital Signs
Temp Pulse Resp BP Pulse Ox
98 F 65 16 110/58 97
07/04/25 12:54 07/04/25 12:54 07/04/25 12:54 07/04/25 12:54 07/04/25 12:54
Physical Exam
General: Well Developed, Well Nourished and No Apparent Distress
HEENT: NormoCephalic, Moist mucous membranes and Atraumatic
Respiratory: Clear
Cardiac: S1/S2 and Regular Rhythm; No Murmur or Rub
GI: Soft, Non Tender, Non Distended and Normal Bowel Sounds; No Organomegaly
Rectal: Deferred by Provider
Musculoskeletal: No Clubbing, No Cyanosis and No Edema
Skin: No Rash
Neuro: Nonfocal/grossly intact
Laboratory Results
-
07/04/25 11:10
07/04/25 11:10
Laboratory Results
PT 18.4 Sec (11.4-14.6) H 07/04/25 11:22
INR 1.50 07/04/25 11:22
APTT 43.4 Sec (23.4-35.0) H 07/04/25 11:22
Total Bilirubin 1.1 mg/dl (0.2-1.3) 07/04/25 11:10
AST 14 U/L (17-59) L 07/04/25 11:10
ALT 12 U/L (0-50) 07/04/25 11:10
Alkaline Phosphatase 61 U/L (38-126) 07/04/25 11:10
Data Reviewed
-
Lab Data: Labs Reviewed by me
Old Records: Reviewed
Impression/Plan
-
IMPRESSION:
PLAN:
# Recurrent acute on chronic blood loss anemia likely mucosal bleeding from thrombocytopenia
-Hemoglobin 6.4 from 8.4
- 2 units blood transfusion
- EGD recently negative
-Protonix 40 IV twice daily
- Hold Eliquis
- Discussed with GI who wants who states they would not consider any repeat interventions with such thrombocytopenia at this time
- Clear liquid diet
# Persistent thrombocytopenia suspect underlying bone marrow disorder
-Platelets of 16 from 34
-2 units of platelets
- Recently had bone marrow biopsy
- Hematology consulted
Pancytopenia/macrocytic anemia likely secondary to bone marrow dysfunction
Known Griffin's esophagus
Paroxysmal atrial fibrillation
- Hold Eliquis
CAD status post CABG
Combined systolic/diastolic CHF/ ischemic cardiomyopathy
- Continue Lasix
Essential hypertension
- Continue metoprolol
History of mitral valve replacement
Hyperlipidemia
- Continue statin
Alzheimer's disease
- Continue rivastigmine
Obstructive sleep apnea
History of thoracic aneurysm of ascending aorta
History of subarachnoid bleeding/TIA
History of cerebral aneurysm status post clip
History of colon polyps
Full code
DVT prophylaxis�SCDs
Clear liquid diet
--- NOTE | 2025-07-04 13:12 | ED.GENMED ---
History of Present Illness
General
Chief Complaint: Abnormal Lab Value
Time Seen by Provider: 07/04/25 11:13
History of Present Illness
History of Present Illness:
See MDM
Past History
Past History
ED Past Medical History: Arrthythmia (Atrial fibrillation), CAD, CVA (TIA, cerebral aneurysm subarachnoid bleed), GERD, HTN, Hypercholesterolemia, Valvular disease (Aortic regurgitation), Other (Clipped cerebral aneurysm . Osteoarthritis/tendinitis
left shoulder.) and Other (Obstructive sleep apnea/BiPAP)
ED Past Surgical History: Appendectomy, Cardiac (Mitral valve repair in 1994, CABG times 12/15/1994, PTCA with stent 2004, August 2017, bovine aortic valve replacement, CABG redo), Cholecystectomy and Other (Left inguinal hernia repair, TURP)
Patient has exhibited threatening behavior?: No
PSI?: No
Social History
Tobacco: Non-smoker
Alcohol: None
Drug: None
Personal:
Living: with family
Employment: Retired
Family History
Family History: Hypertension
Phy Exam
Physical Exam
Physical Exam:
See MDM
Course
Orders/Labs/Results
Orders:
Orders
07/04/25 11:10
Type+Screen Urgent
Complete Blood Count/With Diff Urgent
Comprehensive Metabolic Panel Urgent
Manual Differential Urgent
07/04/25 11:20
Blood Bank Products [* Blood Bank Products] Urgent
'suze Orders: Rah Sanders DO
Blood Bank Products: *Packed RBC Leuko(PRBC's)
Quantity: 2
Transfuse Today: Yes
Reason: Anemia
07/04/25 11:22
PTT Urgent
Prothrombin Time Urgent
07/04/25 12:22
Blood Bank Products [* Blood Bank Products] Urgent
'suze Orders: Rah Sanders DO
Blood Bank Products: *Plt Single Donor Leuko
Quantity: 2
Transfuse Today: Yes
Reason: Thrombocytopenia
07/04/25 12:52
Admit/Transfer Patient As Directed
Co-Sign Provider:
Level of Care: Inpatient admission
Assign to:: Telemetry
Physician / Group: sarath
Diagnosis: anemia, thrombocytopenia
Reason for Telemetry: Arrhythmia
Date to Stop Telemetry: 07/07/25
Time to Stop Telemetry: 11:00
Reason for Hospitalization: anemia, thrombocytopenia
Expected length of stay greater than two midnights?: Yes
ELOS- Estimated Length of Stay in days: 2
I certify the patient meets the requirements for IP care: Yes
PRN Pain Medication Management As Directed
May give lesser potent ordered pain med per pt: Yes
preference::
Protocol:: Medication orders for pain may be administered in a
manner that supports deferring to patient preference
when the pt is:
- Requesting an ordered lesser potent pain medication.
Least to most potent pain medications are defined
as: acetaminophen < NSAID < tramadol < opioids
(morphine, oxycodone, hydromorphone).
- Requesting a lesser dose of the same medication IF
ORDERED.
- Requesting a less intrusive route of administration
if both routes are prescribed by the provider (PO <
IV).
07/04/25 12:53
Code Status As Directed
Resuscitation Status: Full Code
07/07/25 11:00
DC Protocol for Telemetry ONCE
Abnormal Lab Results
07/04/25 07/04/25
11:10 11:22
RBC 2.02 L 10^6/uL
(4.70-6.10)
Hgb 6.4 L* g/dL
(13.0-18.0)
Hct 19.2 L* %
(39.0-52.0)
MCV 95.0 H fL
(80.0-94.0)
MCH 31.7 H pg
(27.0-31.0)
RDW 16.4 H %
(11.5-14.5)
Plt Count 16 L* 10^3/uL
(130-400)
Segmented Neutrophils 27 L %
(42-75)
Eosinophils (Manual) 18 H %
(0-6)
PT 18.4 H Sec
(11.4-14.6)
APTT 43.4 H Sec
(23.4-35.0)
BUN 25 H mg/dl
(9-20)
Glucose 126 H mg/dl
(70-99)
Calcium 8.3 L mg/dl
(8.4-10.2)
AST 14 L U/L
(17-59)
Total Protein 5.8 L g/dl
(6.3-8.2)
Albumin 3.4 L g/dl
(3.5-5.0)
Crossmatch IS Only See Detail
07/04/25 11:10
07/04/25 11:10
Vital Signs
Initial and Last Documented VS:
Initial Vital Signs
Temp Pulse Resp BP Pulse Ox
98.5 F 89 18 112/55 98
07/04/25 10:14 07/04/25 10:14 07/04/25 10:14 07/04/25 10:14 07/04/25 10:14
Last Documented Vital Signs
Temp Pulse Resp BP Pulse Ox
97.9 F 65 16 107/59 96
07/04/25 13:09 07/04/25 13:09 07/04/25 13:09 07/04/25 13:09 07/04/25 13:09
MDM/Problems Addressed
Differential Diagnosis Includes:
Note:
CHIEF COMPLAINT(S)
Low blood levels and weakness.
HISTORY OF PRESENT ILLNESS
The patient is an 84-year-old male presenting with low blood levels and associated weakness. The symptoms began recently, with the primary care physician identifying low levels during a blood workup. The patient has a past medical history
significant for low platelet levels, which previously led to an endoscopy that appeared normal. The patient reports feeling weak and fatigued, which has impacted his daily activities. He also mentioned observing dark stools recently and a history of
a colonoscopy last year.
The patient underwent a bone marrow biopsy due to concerns about bone marrow dysfunction, with all blood cell lines being low, potentially indicating impaired bone marrow function. There was a discussion regarding potential anemia due to either
decreased production or increased loss of red blood cells. The patient is currently on apixaban (Eliquis), which he took this morning.
PAST MEDICAL AND SURGICAL HISTORY
The patient has a history of low platelet levels and has undergone a bone marrow biopsy recently.
CHRONIC MEDICAL CONDITIONS SIGNIFICANTLY AFFECTING CARE
The patient has low platelet levels.
MEDICATIONS
Apixaban (Eliquis), current use confirmed.
PHYSICAL EXAM
General: Alert, no acute distress.
Skin: Warm, dry.
Head: Normocephalic, atraumatic
Neck: Appears supple, trachea midline.
Eyes, Ears, Nose, Mouth, and Throat: Oral mucosa moist.
Cardiovascular: No signs of cyanosis
Respiratory: Respirations are non-labored.
Abdomen: Non-distended. Soft and nontender
Musculoskeletal: No deformities
Neurological: No focal neurological deficit observed.
Psychiatric: Cooperative, appropriate mood and affect.
PROBLEM LIST
- Acute: Low hemoglobin, potential anemia, weakness
- Chronic: Low platelet levels
PLAN
The patient has been advised to undergo a blood transfusion to address the current low hemoglobin level, confirmed to be around five. The patient is to sign consent for the procedure. The care team will reconvene to review blood work results and
determine the underlying cause of the low blood levels. Considering the patients significant weakness and low blood levels, it will likely be necessary to admit him to the hospital for further monitoring and treatment.
DIFFERENTIAL DIAGNOSIS
The Differential Diagnosis includes, in no particular order and is not limited to:
1. Bone marrow suppression or dysfunction
2. Gastrointestinal bleeding
3. Hemolytic anemia
4. Myelodysplastic syndrome
5. Iron deficiency anemia
6. Chronic kidney disease
7. Aplastic anemia
8. Vitamin B12 deficiency
9. Folate deficiency
10. Leukemia
Disposition:
SUMMARY OF ENCOUNTER
The patient, an 84-year-old male, was seen in the emergency department due to confirmed low hemoglobin at 6.4 and low platelet levels at 16. These results, coupled with his history of weakness and dark stools, indicate symptomatic anemia and
bleeding with thrombocytopenia. Due to these findings, the management plan included transfusing both platelets and packed red blood cells.
DISPOSITION
Admit for further workup.
ASSESSMENT
Symptomatic anemia and bleeding with thrombocytopenia requiring blood transfusion.
MEDICAL DECISION MAKING
- Number and Complexity of Problems Addressed:
Chronic conditions affecting care: History of low platelet levels. The differential diagnosis includes bone marrow suppression or dysfunction, gastrointestinal bleeding, hemolytic anemia, myelodysplastic syndrome, iron deficiency anemia, chronic
kidney disease, aplastic anemia, vitamin B12 deficiency, folate deficiency, leukemia.
- Data:
Category 1
Testing: My independent review of the complete blood count (CBC) confirms low hemoglobin at 6.4 and low platelets at 16.
- Risk:
Prescription medication was prescribed and transfusion is indicated given the acute presentation of anemia and thrombocytopenia.
DIAGNOSIS
- Symptomatic anemia (D64.9)
- Thrombocytopenia (D69.6)
*Pulse Oximetry
SaO2: 96
Oxygen Mode of Delivery: Room air
Patient hypoxic: no
*Critical Care Note
Total Time (30-74mins, 75-104mins- exclusive of procedures): 33 min
comment:
The high probability of a clinically significant, sudden or life threatening deterioration of the cardiovascular and gastrointestinal system(s) required my full and direct attention, intervention and personal management. The aggregate critical care
time was 33 minutes. This time is in addition to time spent performing reported procedures but includes the following:
[x] Data Review and interpretation
[x] Patient assessment and monitoring of vital signs
[x] Documentation
[x] Medication orders and management
ED Attending Note
-
Portions of this chart may have been created with voice recognition software.� Occasional wrong word or��sound alike� substitutions may have occurred due to the inherent limitations of voice recognition software.
Discharge Plan
Departure
Patient Disposition: Admit
Date of Disposition: 07/04/25
Time of Disposition: 12:44
Admit to: IMU
Presentation/result/management discussed w/ accepting MD/DO: Hospitalist
Discharge Problem:
GI bleed, Symptomatic anemia, Thrombocytopenia
Prescriptions:
No Action
atorvastatin 40 MG tablet
40 mg PO QPM Qty: 30 0RF
furosemide 20 MG tablet
20 mg PO DAILY
polyethylene glycol 3350 [ClearLax] 17 GM powder in packet
17 gm PO DAILYPRN PRN (Reason: constipation)
metoprolol succinate 50 MG tablet extended release 24 hr
50 mg PO QPM
Eliquis 2.5 mg Tablet
2.5 mg PO BID
Rx Instructions:
patient has free samples
pilocarpine HCl 1 % Drops
1 drp BOTH EYES BID
acetaminophen [Tylenol Extra Strength] 500 mg Tablet
500 mg PO Q6HPRN PRN (Reason: mild pain)
rivastigmine tartrate 3 mg Capsule
3 mg PO BID
magnesium oxide 200 mg magnesium Tablet
600 mg PO DAILY
pantoprazole 40 mg tablet,delayed release (DR/EC)
40 mg PO DAILY Qty: 30 0RF
meclizine 12.5 mg tablet
25 mg PO Q8HPRN PRN (Reason: vertigo)
Referrals:
Rambo Mcdowell MD [Family Provider, Family Practice]
Interventions
Interventions:
*Risk Screen - Suicide Last Done: 07/04/25 10:17
*General Assessment Last Done: 07/04/25 11:13
*Neglect/Abuse Screening Last Done: 07/04/25 10:17
*ED- Fall Risk Assessment Last Done: 07/04/25 11:13
*ED COVID-19 Vaccine History Last Done: 07/04/25 11:13
Discharge Date and Time
Print Language: SAMI
--- NOTE | 2025-07-04 13:31 | CM ---
CM reviewed chart and met with pt bedside in ED. Lives with , 1 story home with attic and basement, [address].
Independent in ADLs, personal care and ambulation at baseline. No assistive devices, still driving.
Recent admite 06/24 to 06/27 for similar symptoms.
Current with [facility], I notified Berna of admission. Hx SNF in [place] in past, unsure of name
PCP: Rambo Mcdowell
Pharmacy: [address]
Anticipate home with services, current with [facility]
--- NOTE | 2025-07-04 14:32 | TRANSFER ---
pt arrived from ED accompanied by RN. blood transfusing through L AC IV site by gravity. pt ambulated from stretcher to bed with standby assist. VSS. pt AAOx3, bed alarm placed, plan of care ongoing.
[2025-07-04] MEDS: TYLENOL 500 MG PO ×2 (14:48→21:49)
[2025-07-04] MEDS: PROTONIX IV 40 MG IV ×2 (14:49→19:18)
[2025-07-04] MEDS: NSS (PRESERVATIVE FREE) 10 ML IV ×2 (14:49→19:18)
--- NOTE | 2025-07-04 15:42 | CON.ONC ---
Documented by User: Khushi Campos MD, Resident 07/04/25 16:52
Consultation
-
Date Consultation Requested: 07/04/25
Date Consultation Performed: 07/04/25
Requesting Provider: Joe Bryant
Performing Provider: Dr. Matthew Bhat
Reason for Consultation: Thrombocytopenia, anemia
Impression
Impression
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
Pancytopenia
Dark stools
Abdominal discomfort
Fatigue
Shortness of breath
Combined systolic and diastolic HF
Hx CAD and valvular disease s/p stent, mitral valve repair, AVR/CABG
Hx a.fib
Plan
Plan
--s/ 2 units blood, 2 units platelets in ED
--Monitor Hg and plt
--Dark stools concerning for re-bleed - transfuse for ptl <40
--Transfuse blood for hg <7
--PPI IV BID
--Hold Eliquis - likely indefinitely
--Will need to f/u in the outpatient setting once stable for tx of his MDS with excess blasts
--No indications for GI to repeat eval at this time with recent EGD (-) and thrombocytopenia
Patient History
History of Present Illness
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
echo 60 to 65% EF) hyperlipidemia, history of TIA/subarachnoid bleed, mitral valve disease, thoracic aneurysm, DAMIAN on CPAP, history of colon polyps, history of prostate cancer s/p surgical resection presents to [facility] ED with complaints of
fatigue, SOB and dizziness. He had an episode of chest pain yesterday that has since resolved. He has had ongoing black stools and denies any bright red blood.
He was recently admitted here from 06/24 to 06/27 for similar complaints. He was found to have a hg 6.8, platelets 14 and segmented neutrophil count of 22. Hemolytic anemia was ruled out and a bone biopsy was done with high suspicion of a bone
marrow disorder. He also had an endoscopy done which revealed no AVMs, erosions or ulcerations with only some duodenitis characterized by erythema. GI suspected he oozed some blood in setting of severe thrombocytopenia accounting for his dark
stools. He was discharged on a PPI with instructions to f/u with heme/onc for bone biopsy results. He did require 2 units of blood and 3 units of platelets total. Eliquis was okay to restart per all teams involved with recommendations to f/u with
PCP regarding further discussions regarding stopping indefinitely.
In the ED, BP 110/58, HR 65, RR 16, afebrile satting well on room air. Hg 6.4, platelets 16, segmented neutrophils 27, eosinophils 18, myelocytes 5, cr 1.2. Two units of packed RBC and 2 units of platelets were ordered in the ED and patient was
admitted for further work up. Eliquis held. 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 Heme/onc is consulted for further evaluation of his abnormal CBC.
Past-Medical/Surgical History
Past medical history: Griffin's esophagus, history of colon polyps, colonic angiectasia, coronary artery disease, A-fib, aortic stenosis status post AVR/CABG, high cholesterol, subarachnoid bleed, mitral valve disease, thoracic aneurysm, DAMIAN on
CPAP, prostate cancer s/p surgical resection, chronic systolic and diastolic congestive heart failure (05/13/2024 echo 60 to 65% EF)
Past surgical history:H Cardiac Cath successful multivessel intervention involving circ and RCA dz 08/2017, mitral valve repair and coronary artery bypass grafting x 1 using SV to ramus ([facility] - 1994), craniotomy (1990),
tonsillectomy, appendectomy, reop sternotomy aortic va), left inguinal hernia repair, TURP, cholecystectomy
Patient Medication
�Medication �Instructions �Recorded �Confirmed �Last Taken �Type
atorvastatin 40 mg tablet 40 mg PO QPM ##30 02/20/18 07/04/25 10/17/21 20:30 Rx
furosemide 20 mg tablet 20 mg PO DAILY Fluid 09/27/19 07/04/25 06/24/25 History
retention/Swelling
polyethylene glycol 3350 17 gram 17 gm PO DAILYPRN PRN constipation 11/29/19 07/04/25 06/24/25 History
oral powder packet (ClearLax)
metoprolol succinate 50 mg 50 mg PO QPM Heart 08/04/20 07/04/25 10/17/21 20:30 History
tablet,extended release 24 hr disease/condition
acetaminophen 500 mg tablet 500 mg PO Q6HPRN PRN mild pain 06/24/25 07/04/25 06/24/25 History
(Tylenol Extra Strength)
apixaban 2.5 mg tablet (Eliquis) 2.5 mg PO BID Blood Clot 06/24/25 07/04/25 07/04/25 History
Prevention/Tx
magnesium oxide 600 mg PO DAILY Supplement 06/24/25 07/04/25 06/24/25 History
pilocarpine HCl 1 % eye drops 1 drp BOTH EYES BID Eye Condition 06/24/25 07/04/25 06/23/25 History
rivastigmine tartrate 3 mg capsule 3 mg PO BID Cognitive deficits 06/24/25 07/04/25 06/24/25 History
pantoprazole 40 mg tablet,delayed 40 mg PO DAILY Gastrointestinal 06/27/25 07/04/25 Unknown Rx
release issue #30 tabs
meclizine 12.5 mg tablet 25 mg PO Q8HPRN PRN vertigo 07/04/25 07/04/25 3 Days Ago History
~07/01/25
Active Medications
Generic Name Dose Route Start Last Admin
Trade Name Freq PRN Reason Stop Dose Admin
Acetaminophen 500 mg 07/04/25 14:01 07/04/25 14:48
Acetaminophen 500 Mg Tablet PO 08/01/25 14:00 500 mg
Q6HPRN PRN Administration
mild pain
Atorvastatin Calcium 40 mg 07/04/25 18:00
Atorvastatin (Lipitor) 40 Mg Tablet PO 08/01/25 17:59
QPM AZUL
Furosemide 20 mg 07/05/25 08:00
Furosemide 20 Mg Tablet PO 08/02/25 07:59
DAILY AZUL
Magnesium Oxide 500 mg 07/05/25 08:00
Magnesium Oxide 500 Mg Tablet PO 08/02/25 07:59
DAILY AZUL
Meclizine HCl 25 mg 07/04/25 14:01
Meclizine 12.5 Mg Tablet PO 08/01/25 14:00
Q8HPRN PRN
vertigo
Metoprolol Succinate 50 mg 07/04/25 18:00
Metoprolol 50 Mg Extended Release Tablet PO 08/01/25 17:59
QPM AZUL
Pantoprazole Sodium 40 mg 07/04/25 14:15 07/04/25 14:49
Pantoprazole Sodium 40 Mg/10 Ml Vial IV 08/01/25 14:14 40 mg
BID AZUL Administration
Pilocarpine HCl 1 drop 07/04/25 20:00
Pilocarpine 1% (Ophthalmic Solution) 15 Ml Bottle BOTH EYES 08/01/25 19:59
BID AZUL
Polyethylene Glycol 17 grams 07/04/25 14:01
Polyethylene Glycol Powder 17 Grams Packet PO 08/01/25 14:00
DAILYPRN PRN
constipation
Rivastigmine Tartrate 3 mg 07/04/25 20:00
Rivastigmine (Exelon) 3 Mg Capsule PO 08/01/25 19:59
BID AZUL
Sodium Chloride 10 ml 07/04/25 14:15 07/04/25 14:49
Sodium Chloride 0.9% (Preservative Free) 10 Ml Vial IV 08/01/25 14:14 10 ml
BID AZUL Administration
Review of Systems
-
Fatigue
History Source: Patient
Constitutional: Reports No Symptoms
EENT: Reports No Symptoms
Respiratory: Reports Trouble Breathing
Cardiac: Reports No Symptoms
GI: Reports Black Stools and Other (abdominal discomfort )
: Reports No Symptoms
Neuro: Reports No Symptoms
Physical Exam
-
General: Well Developed
Cardiology: Normal Sinus Rhythm, S1, S2 and Murmur
Pulmonary: Clear
GI: Soft, Normal Bowel Sounds, Distended and Other (generalized abdominal discomfort with palpation )
Musculoskeletal: No Cyanosis and No Edema
Skin: Warm and Dry
Psych: Calm
Labs
Lab Results
WBC 6.5 10^3/uL (4.8-10.8) 07/04/25 11:10
RBC 2.02 10^6/uL (4.70-6.10) L 07/04/25 11:10
Hgb 6.4 g/dL (13.0-18.0) L* 07/04/25 11:10
Hct 19.2 % (39.0-52.0) L* 07/04/25 11:10
MCV 95.0 fL (80.0-94.0) H 07/04/25 11:10
MCH 31.7 pg (27.0-31.0) H 07/04/25 11:10
MCHC 33.3 g/dL (33.0-37.0) 07/04/25 11:10
RDW 16.4 % (11.5-14.5) H 07/04/25 11:10
Plt Count 16 10^3/uL (130-400) L* 07/04/25 11:10
MPV Not Reportable 07/04/25 11:10
Creatinine 1.2 mg/dL (0.7-1.3) 07/04/25 11:10
Vital Signs
Vital Signs
Temp Pulse Resp BP Pulse Ox
98.5 F 70 16 114/62 97
07/04/25 15:25 07/04/25 15:25 07/04/25 15:25 07/04/25 15:25 07/04/25 15:25

Documented by User: Matthew Bhat MD 07/04/25 16:55
Plan
Plan
--s/ 2 units blood, 2 units platelets in ED
--Monitor Hg and plt
--Dark stools concerning for re-bleed - transfuse for ptl <40
--Transfuse blood for hg <7
--PPI IV BID
--Hold Eliquis - likely indefinitely
--Will need to f/u in the outpatient setting once stable for tx of his MDS with excess blasts
--No indications for GI to repeat eval at this time with recent EGD (-) and thrombocytopenia
Attending: Recent onset pancytopenia, bone marrow shows myelodysplasia with 9% blasts. He seems to have been bleeding the last couple of days, agree with plans for transfusion support. This was undoubtedly aggravated by the Eliquis. It is
unlikely that his platelet count will be higher than it is now for at least some time, so that medication will need to be on indefinite hold. He most likely will be started on treatment for his myelodysplasia in the next 1 to 2 weeks.
[2025-07-04] MEDS: TOPROL XL 50 MG PO (18:04)
[2025-07-04] MEDS: ISOPTO CARPINE BOTH EYES (19:18)
[2025-07-04] MEDS: EYE BOTH EYES (19:18)
[2025-07-04] MEDS: EXELON 3 MG PO (19:19)
--- NOTE | 2025-07-04 20:38 | PTOTSP ---
ST Acute Care Evaluation
Pt currently presents with clinical signs of at least mild to moderate oropharyngeal dysphagia characterized by immediate onset of coughing with ingestion of large or sequential sips of thin liquids via open cup and majority of sips of thin liquids
via straw as well as previously dx mild pharyngeal dysphagia from VFSS in 09/2021 when pt demonstrated silent aspiration with ingestion of consecutive sips of thin liquids as well as pharyngeal stasis with other consistencies.
Pt also exhibits and reports clinical signs of suspected esophageal dysfunction including but not limited to eructation and hiccupping before and throughout PO intake, reports of inability to even swallow hard/dry swallows without them being
regurgitated and requiring him to have to try to swallow them again, reports of occasional regurgitation/expectoration of undigested chewed up food, as well as frequent expectoration of mucous after meals, all of which is in the setting of
previously dx GERD, garza's esophagus, angioectasia, and hx GI hemorrhage.
Pt is at an elevated risk for prandial and postprandial aspiration due to his Alzheimer's dementia - pt has a poor recall and reduced ability to independently follow through with compensatory strategies recommended to increase his airway protection
during PO intake.
Recommendations:
- Continue with thin liquids for clear liquid diet but NO STRAWS!!! Can also start on pureed solids when cleared from a medical standpoint.
- Medications whole in puree - crush as needed.
- Aspiration precautions: HOB upright for all PO intake; encourage pt to take SMALL bites and SMALL sips as well as eat/drink SLOWLY.
- Reflux precautions: HOB upright for at least 60 minutes after PO intake; HOB>30 degrees at night.
- Consider GI consult given suspected esophageal dysfunction - esophagram?
- Pt would benefit from an instrumental swallow study (VFSS or FEES) for more updated objective information regarding his current swallowing status - will need to wait until Monday. If pt discharged before then, pt can have it completed as an OP.
- GUSSET RIPPER to f/u re: diet tolerance, use of compensatory strategies, determine candidacy/appropriateness for further diet upgrades, and determine readiness for instrumental swallow study.
--- NOTE | 2025-07-04 22:10 | PTCARENOTE ---
First unit of Platelets infusing at 2002. Patients pre and 15 minute vital signs all WNL. Pt appears comfortable and without any complaints of pain. At 2128 Pt noticeably shaking and complaining of 'feeling cold'. Temp 100.4 BP 167/83 Pt is also
complaining of back pain. Infusion stopped and House Provider notified via TT. Radha Coronel at bedside and transfusion reaction set ordered. Blood Bank notified. Platelets along with NS and tubing taken to Blood Bank as per protocol. All
transfusion reaction blood work collected as per protocol. 2206 Temp 102.7 BP 103/51 1000mg of tylenol PO given with 250cc NS bolus given.
[2025-07-04] MEDS: NSS 250 IV (22:18)
[2025-07-04 22:26] LABS: Hematocrit 25.9 % (39.0-52.0); Hemoglobin 8.9 g/dL (13.0-18.0); Mean Corp Hgb Conc. 34.4 g/dL (33.0-37.0); Mean Corpuscular Volume 91.2 fL (80.0-94.0); Platelet Count 13 10^3/uL (130-400); Red Cell Dist. Width 15.9 % (11.5-14.5)
[2025-07-04 22:37] LABS: ALT (SGPT) 13 U/L (0-50); AST (SGOT) 16 U/L (17-59); Albumin 3.6 g/dl (3.5-5.0); Alkaline Phosphatase 73 U/L (38-126); Blood Urea Nitrogen 23 mg/dl (9-20); Calcium 8.7 mg/dl (8.4-10.2); Carbon Dioxide 25 mmol/L (22-30); Chloride 105 mmol/L (98-107); Estimated Creatinine Clearance 47 ml/min; Glucose 113 mg/dl (70-99); Potassium 4.4 mmol/L (3.5-5.1); Sodium 137 mmol/L (135-145); Total Protein 6.3 g/dl (6.3-8.2); eGFR > 60.00
[2025-07-04 22:57] LABS: Urine Character Clear (Clear)
[2025-07-04 23:23] LABS: Absolute Neutrophils -Man Diff 3.6 10^3/uL (1.4-6.5)
[2025-07-04 23:24] LABS: Normal RBC Morphology Yes; Platelets Checked Yes; Total Cells Counted 100
[2025-07-04 23:28] LABS: Urine Red Blood Cell 0-2 /HPF (0-2); Urine White Cell 0-2 /HPF (0-5)
[2025-07-05] VITALS (7 sets, daily range): BP systolic 96–126; BP diastolic 51–61; BMI 26.2
[2025-07-05] MEDS: TYLENOL 1000 MG PO (00:06)
--- NOTE | 2025-07-05 00:21 | PTCARENOTE ---
2333 Temp 99.8, HR 81 resp 18 BP 91/49 99% 2lNC. Pt states, 'I am feeling much better'. Pt appear comfortable and denies any chest or back pain. Will continue to closely monitor.
--- NOTE | 2025-07-05 00:55 | W.PN.UPDATE ---
Update Note
Progress Note Update
Notified by RN patient developed sudden back pain, fever, htn, and tachycardia during administration of 1st unit of plt. Patient had already completed 2U PRBC about 2hrs prior to the plt. Plt was stopped, transfusion reaction protocol order placed
and in progress. Discussed with admitting physician, hold further blood products at this time. Rx 1g tylenol, 500cc bolus - patient stable at this time, BP remains soft. Rx CXR, lactic for AM.
[2025-07-05 05:22] LABS: Hematocrit 23.2 % (39.0-52.0); Hemoglobin 7.7 g/dL (13.0-18.0); Mean Corp Hgb Conc. 33.2 g/dL (33.0-37.0); Mean Corpuscular Volume 95.5 fL (80.0-94.0); Platelet Count 13 10^3/uL (130-400); Red Cell Dist. Width 16.4 % (11.5-14.5)
[2025-07-05 05:39] LABS: ALT (SGPT) 11 U/L (0-50); AST (SGOT) 14 U/L (17-59); Albumin 2.9 g/dl (3.5-5.0); Alkaline Phosphatase 55 U/L (38-126); Blood Urea Nitrogen 21 mg/dl (9-20); Calcium 8.1 mg/dl (8.4-10.2); Carbon Dioxide 27 mmol/L (22-30); Chloride 109 mmol/L (98-107); Estimated Creatinine Clearance 47 ml/min; Glucose 98 mg/dl (70-99); Potassium 4.6 mmol/L (3.5-5.1); Sodium 138 mmol/L (135-145); Total Protein 5.3 g/dl (6.3-8.2); eGFR > 60.00
--- NOTE | 2025-07-05 07:31 | W.PN.HOSP.TC ---
Today's Communication/Plan
-
See A/P
Assessment / Plan
Assessment / Plan
Assessment/plan
#Acute on chronic symptomatic blood loss anemia likely secondary to mucosal bleeding
-Hemoglobin on presentation 6.4
-S/p 2 units blood transfusion in ED
-Recently admitted for the same etiology, s/p EGD done 06/26/2025 without any significant findings throughout the examined upper GI tract to account for bleeding episodes.
-At that time GI suspected oozing in the setting of severe thrombocytopenia and anticoagulation
-Recently diagnosed with myelodysplastic syndrome with excess blasts after bone marrow biopsy, likely contributing to bleeding episode
-Holding Eliquis indefinitely
-Heme-onc input appreciated
-Curbside GI- who states no indication for GI to repeat scope
-Clear liquids
-Continue Protonix 40 mg IV twice daily
-Monitor H&H
#Myelodysplastic syndrome with 9% blasts
#Pancytopenia
-Recent bone marrow biopsy with result as above
-Heme-onc input appreciated
-Follow-up hematology and oncology as an outpatient when stable for treatment
#?Possible transfusion reaction
-Developed back pain, fever, hypotension, tachycardia during administration of platelets, already received 2 units of PRBC prior to this
-Transfusion reaction order placed, currently pending investigative process
-Holding further transfusion at this time
#Paroxysmal atrial fibrillation
-Currently normal sinus rhythm
-Rate control with metoprolol succinate
-Holding Eliquis in the setting of GI bleed
#CAD s/p CABG x 1
-Denies acute chest pain
#Ischemic cardiomyopathy
#HFpEF
-Continue Lasix
#Essential hypertension
-Continue metoprolol
History of mitral valve replacement
#Hyperlipidemia
-Continue statin
#Alzheimer's disease
-Continue rivastigmine
#Obstructive sleep apnea
Nightly CPAP
#History of thoracic aneurysm of ascending aorta
#History of subarachnoid bleeding/TIA
#History of cerebral aneurysm status post clip
#History of colon polyps
CODE STATUS full code
DVT prophylaxis SCDs
Anticipated Discharge: > 48 hours
Subjective/Interval History
-
Date of Service: July 05, 2025
Objective Data
-
Labs:
Laboratory Results
07/04/25 07/05/25 07/05/25
22:07 04:43 12:25
WBC 8.2 5.7 Pending
Hgb 8.9 L D 7.7 L Pending
Hct 25.9 L 23.2 L Pending
Plt Count 13 L* 13 L* Pending
Sodium 137 138
Potassium 4.4 4.6
Chloride 105 109 H
Carbon Dioxide 25 27
BUN 23 H 21 H
Creatinine 1.1 1.1
Glucose 113 H 98
Calcium 8.7 8.1 L
Total Bilirubin 2.7 H D 1.8 H
AST 16 L 14 L
ALT 13 11
Alkaline Phosphatase 73 55
Vital Signs:
Vital Signs
Temp Pulse Resp BP Pulse Ox
98.4 F 55 18 96/53 96
07/05/25 03:15 07/05/25 03:15 07/05/25 03:15 07/05/25 03:15 07/05/25 03:15
I&O
07/04/25 07/05/25 07/06/25
06:59 06:59 06:59
Intake Total 1270 / 1270
Output Total 550 / 550
Balance 720 / 720
Review of Systems
-
All other systems: Reviewed and negative (Except as documented)
Physical Exam
-
General: No Apparent Distress
HEENT: Normocephalic
Respiratory: Clear to Auscultation
Cardiac: Regular Rhythm and S1/S2
GI: Soft, Nontender and Nondistended
Musculoskeletal: No Edema
Skin: Warm
Neuro: AO x 3
Psych: Calm
[2025-07-05] MEDS: LASIX 20 MG PO (07:49)
[2025-07-05] MEDS: MAGNESIUM OXIDE 500 MG PO (07:49)
[2025-07-05] MEDS: EXELON 3 MG PO ×2 (07:50→19:37)
[2025-07-05] MEDS: ISOPTO CARPINE BOTH EYES ×2 (07:50→19:37)
[2025-07-05] MEDS: PROTONIX IV 40 MG IV ×2 (07:50→19:38)
[2025-07-05] MEDS: NSS (PRESERVATIVE FREE) 10 ML IV ×2 (07:50→19:38)
[2025-07-05] MEDS: EYE BOTH EYES ×2 (07:50→19:37)
[2025-07-05] MEDS: TYLENOL 500 MG PO ×2 (07:51→19:01)
[2025-07-05 07:55] LABS: Absolute Neutrophils -Man Diff 1.5 10^3/uL (1.4-6.5)
[2025-07-05 07:56] LABS: Anisocytosis Slight; Hypochromasia Slight; Normal RBC Morphology No; Platelets Checked Yes; Total Cells Counted 100
--- NOTE | 2025-07-05 08:22 | W.PN.UPDATE ---
Update Note
Progress Note Update
I saw and evaluated the patient. I reviewed the resident�s note and agree with findings and plan as documented in the resident�s note.
No new complaints.
Gen: NAD, AAOx3.
Eyes: EOMI, PERRLA, no scleral icterus.
Neck: supple.
CV: RRR, +S1/S2, no m/r/g.
Resp: CTAB, no rales, wheezes, or rhonchi.
Abd: +BS, soft, NT, ND
Skin: No rashes.
Neuro: CN 2-12 intact, non-focal.
Psych: Normal mood and affect.
Recurrent acute on chronic blood loss anemia:
-likely mucosal bleeding from thrombocytopenia, Eliquis contributed to bleeding (holding Eliquis)
-s/p 2U pRBCs
-EGD recently negative
-cont PPI BID
-previously discussed with GI who wants who states they would not consider any repeat interventions with such thrombocytopenia at this time
-clears
Persistent thrombocytopenia:
-likely due to underlying bone marrow disorder
-s/p 1U plts
-recently had bone marrow biopsy
-Heme following
Possible transfusion reaction:
-developed fever, elevated blood pressure, back pain
-hold further blood products at this time
-T-bili elevated, now improving, suspect high indirect bili
-check LDH/Haptoglobin
Other problems:
Known Griffin's esophagus
PAF: holding Eliquis with anemia/thrombocytopenia. Would not restart as risk>benefit.
CAD s/p CABG: cont BB
Chronic HFrEF: cont Lasix/BB
Essential HTN: cont BB
h/o MVR
HLD: cont statin
Alzheimer's disease: cont rivastigmine
DAMIAN
h/o thoracic aneurysm of ascending aorta
h/o subarachnoid bleeding/TIA
h/o cerebral aneurysm s/p clip
DNR - this was discussed with the pt 07/05/25AM (pt currently has decision making capacity)
SCDs
[2025-07-05 09:24] LABS: LDH 252 U/L (120-246)
[2025-07-05 13:06] LABS: Hematocrit 23.5 % (39.0-52.0); Hemoglobin 8.2 g/dL (13.0-18.0); Mean Corp Hgb Conc. 34.9 g/dL (33.0-37.0); Mean Corpuscular Volume 91.8 fL (80.0-94.0); Red Cell Dist. Width 16.0 % (11.5-14.5)
--- NOTE | 2025-07-05 13:10 | W.PN.UPDATE ---
Update Note
Progress Note Update
Case discussed with Dr. Kearney. Patient likely had a febrile nonhemolytic transfusion reaction. At this point in time, as he is not bleeding, there is no recommendation for further platelet transfusion. If he we were to need to have further
platelet transfusions they would have to be washed platelets which are challenging to obtain.
[2025-07-05 13:28] LABS: Absolute Neutrophils -Man Diff 2.4 10^3/uL (1.4-6.5); Anisocytosis Slight; Normal RBC Morphology No; Platelets Checked Yes; Polychromasia Slight; Total Cells Counted 100
[2025-07-05 13:29] LABS: Platelet Count 13 10^3/uL (130-400)
--- NOTE | 2025-07-05 13:30 | W.PN.ONC ---
Today's Communication / Plan
-
Hold Eliquis indefinitely
Monitor CBC and for bleeding
Would hold off on further blood products today
Blood bank transfusion reaction w/u underway
Premeds have not been shown to reduce the risk for FNHTR, though would order washed platelets from [place] if this happens again
Palliative care to see patient on 07/07; now DNR
Has outpatient visit with Dr. Hutchinson on 07/10; If he desires treatment, he most likely will be started on therapy for his myelodysplasia in the next 1 to 2 weeks.
Impression
Impression
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
Pancytopenia
Dark stools
Abdominal discomfort
Fatigue
Shortness of breath
Combined systolic and diastolic HF
Hx CAD and valvular disease s/p stent, mitral valve repair, AVR/CABG
Hx a.fib
platelet transfusion reaction, suspect febrile non-hemolytic transfusion rxn
Plan
Plan
Hold Eliquis indefinitely
Monitor CBC and for bleeding
Would hold off on further blood products today
Blood bank transfusion reaction w/u underway
Premeds have not been shown to reduce the risk for FNHTR, though would order washed platelets from [place] if this happens again
Palliative care to see patient on 07/07; now DNR
Has outpatient visit with Dr. Hutchinson on 07/10; If he desires treatment, he most likely will be started on therapy for his myelodysplasia in the next 1 to 2 weeks.
Subjective/Objective
Subjective/Objective
Patient had a febrile reaction to platelet transfusion overnight, with rigors. He tolerated 2u pRBCs earlier in the evening. He denies having back pain, dyspnea, hives, or other symptoms. He had BP/pulse fluctuations during and after the reaction. A
blood bank work-up for tranfusion reactions is underway. MYRA is negative.
Vital Signs:
Vital Signs
Temp Pulse Resp BP Pulse Ox
98.4 F 56 18 126/61 99
07/05/25 11:22 07/05/25 11:22 07/05/25 11:22 07/05/25 11:22 07/05/25 11:22
Lab Results:
Laboratory Data
WBC 5.4 10^3/uL (4.8-10.8) 07/05/25 12:46
Hgb 8.2 g/dL (13.0-18.0) L 07/05/25 12:46
Plt Count 13 10^3/uL (130-400) L* 07/05/25 12:46
PT 18.4 Sec (11.4-14.6) H 07/04/25 11:22
INR 1.50 07/04/25 11:22
APTT 43.4 Sec (23.4-35.0) H 07/04/25 11:22
eGFR > 60.00 07/05/25 04:43
[2025-07-05] MEDS: TOPROL XL 50 MG PO (17:59)
[2025-07-06] VITALS (7 sets, daily range): BP systolic 101–128; BP diastolic 55–65; PULSE 72
[2025-07-06 07:30] LABS: Blood Urea Nitrogen 20 mg/dl (9-20); Calcium 8.0 mg/dl (8.4-10.2); Carbon Dioxide 29 mmol/L (22-30); Chloride 107 mmol/L (98-107); Estimated Creatinine Clearance 47 ml/min; Glucose 93 mg/dl (70-99); Potassium 4.5 mmol/L (3.5-5.1); Sodium 139 mmol/L (135-145); eGFR > 60.00
[2025-07-06 07:47] LABS: Hematocrit 24.3 % (39.0-52.0); Hemoglobin 8.2 g/dL (13.0-18.0); Mean Corp Hgb Conc. 33.7 g/dL (33.0-37.0); Mean Corpuscular Volume 93.1 fL (80.0-94.0); Platelet Count 13 10^3/uL (130-400); Red Cell Dist. Width 16.0 % (11.5-14.5)
--- NOTE | 2025-07-06 07:56 | W.PN.HOSP.TC ---
Today's Communication/Plan
-
See A/P
Assessment / Plan
Assessment / Plan
Assessment/plan
#Acute on chronic symptomatic blood loss anemia likely secondary to mucosal bleeding
-Hemoglobin on presentation 6.4
-S/p 2 units blood transfusion in ED
-Recently admitted for the same etiology, s/p EGD done 06/26/2025 without any significant findings throughout the examined upper GI tract to account for bleeding episodes.
-At that time GI suspected oozing in the setting of severe thrombocytopenia and anticoagulation
-Recently diagnosed with myelodysplastic syndrome with excess blasts after bone marrow biopsy, likely contributing to bleeding episode
-Holding Eliquis indefinitely
-Heme-onc input appreciated
-Curbside GI- who states no indication for GI to repeat scope
-Continue Protonix 40 mg IV twice daily
-Monitor H&H
#Myelodysplastic syndrome with 9% blasts
#Pancytopenia
-Recent bone marrow biopsy with result as above
-Heme-onc input appreciated
-Follow-up hematology and oncology as an outpatient when stable for treatment
#Transfusion reaction likely febrile nonhemolytic transfusion reaction
-On 07/05 developed back pain, fever, hypotension, tachycardia during administration of platelets, already received 2 units of PRBC prior to this
-Transfusion reaction order placed, currently pending investigative process
-Holding further transfusion at this time
-If needs urgent transfusion, washed platelets preferred
#Paroxysmal atrial fibrillation
-Currently normal sinus rhythm
-Rate control with metoprolol succinate
-Holding Eliquis in the setting of GI bleed
#CAD s/p CABG x 1
-Denies acute chest pain
#Ischemic cardiomyopathy
#HFpEF
-Continue Lasix
#Essential hypertension
-Continue metoprolol
History of mitral valve replacement
#Hyperlipidemia
-Continue statin
#Alzheimer's disease
-Continue rivastigmine
#Obstructive sleep apnea
-Nightly CPAP
#History of thoracic aneurysm of ascending aorta
#History of subarachnoid bleeding/TIA
#History of cerebral aneurysm status post clip
#History of colon polyps
CODE STATUS DNR
Appropriate for palliative care consult on 07/07
Anticipated Discharge: > 48 hours
Subjective/Interval History
-
Date of Service: July 06, 2025
Objective Data
-
Labs:
Laboratory Results
07/06/25
06:30
WBC 4.5 L
Hgb 8.2 L
Hct 24.3 L
Plt Count 13 L*
Sodium 139
Potassium 4.5
Chloride 107
Carbon Dioxide 29
BUN 20
Creatinine 1.1
Glucose 93
Calcium 8.0 L
Vital Signs:
Vital Signs
Temp Pulse Resp BP Pulse Ox
98.4 F 58 18 108/61 97
07/06/25 03:32 07/06/25 03:32 07/06/25 03:32 07/06/25 03:32 07/06/25 03:32
I&O
07/05/25 07/06/25 07/07/25
06:59 06:59 06:59
Intake Total 1270 / 1270
Output Total 550 / 550 1000 / 1000
Balance 720 / 720 -1000 / -1000
Physical Exam
-
General: No Apparent Distress and Appears Chronically Ill
HEENT: Normocephalic
Respiratory: Clear to Auscultation
Cardiac: Regular Rhythm and S1/S2
GI: Soft, Nontender and Nondistended
Musculoskeletal: No Edema
Skin: Warm
Neuro: AO x 3
Psych: Calm
[2025-07-06] MEDS: PROTONIX IV 40 MG IV ×2 (08:03→21:20)
[2025-07-06] MEDS: NSS (PRESERVATIVE FREE) 10 ML IV ×2 (08:03→21:20)
[2025-07-06] MEDS: TYLENOL 500 MG PO (08:04)
[2025-07-06] MEDS: MAGNESIUM OXIDE 500 MG PO (08:04)
[2025-07-06] MEDS: LASIX 20 MG PO (08:04)
[2025-07-06] MEDS: EXELON 3 MG PO ×2 (08:04→21:20)
[2025-07-06] MEDS: EYE BOTH EYES ×2 (08:05→21:21)
[2025-07-06] MEDS: ISOPTO CARPINE BOTH EYES ×2 (08:05→21:21)
--- NOTE | 2025-07-06 14:25 | CM ---
Patient seen at bedside with spouse on . Patient stated that he does not have home O2 and he wants to go home with [facility] for follow up. Patient asking for pt/ot and spouse asking for updates to her questions. CM will send tt to hospitalist
requesting call to . CM will continue to follow for discharge planning needs.
Plan; home with [facility] to follow up; will send referral to [facility] via all scripts
[2025-07-06] MEDS: TOPROL XL 50 MG PO (17:00)
--- NOTE | 2025-07-06 19:52 | PTOTSP ---
ST Follow-Up
Pt continues to present with clinical signs of at least mild oropharyngeal dysphagia as well as esophageal dysfunction characterized by reduced bolus formation and scant oral residue, coughing s/p ingestion of thin liquids with sequential sips via
open cup and single sips via straw, as well as previously reported regurgitation of undigested solid foods from time to time in the context of previously dx GERD, Griffin's esophagus, angioectasia, and hx GI hemorrhage.
Recommendations:
- Continue with regular solids, thin liquids, meds whole in puree (or one at a time with liquids).
- Continue aspiration and reflux precautions - small single sips with NO STRAWS, alternate solids/liquids, HOB upright for 60 minutes after intake, eat/drink slowly, no talking while eating/drinking.
- DYE COLORIST DYER to f/u re: diet tolerance, use of compensatory strategies, and to determine if pt would benefit from an instrumental swallow study while admitted vs complete as an OP.
[2025-07-07 03:39] VITALS: BP 106/58
[2025-07-07 08:05] VITALS: BP 101/60
--- NOTE | 2025-07-07 08:44 | W.PN.ONC2 ---
Today's Communication / Plan
-
follow CBC, transfuse prn
awaiting pathology comments on transfusion reaction work up
we will continue to monitor CBC and transfuse prn outpt upon discharge
Impression
Impression
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
Pancytopenia s/p 2U PrBC during hospitalization, last 07/04
Dark stools
Abdominal discomfort
Fatigue
Shortness of breath
Combined systolic and diastolic HF
Hx CAD and valvular disease s/p stent, mitral valve repair, AVR/CABG
Hx a.fib
platelet transfusion reaction, suspect febrile non-hemolytic transfusion rxn on 07/04/2025
Plan
Plan
Hold Eliquis indefinitely
on PPI
Monitor CBC and for bleeding
Premeds have not been shown to reduce the risk for FNHTR, though would order washed platelets from [place] if this happens again
Palliative care to see patient on 07/07; now DNR
Has outpatient visit with Dr. Hutchinson on 07/10; If he desires treatment, he most likely will be started on therapy with HMA and luspatercept for his myelodysplasia in the next 1 to 2 weeks.
Subjective/Objective
Subjective
no new complaints
Vital Signs:
Vital Signs
Temp Pulse Resp BP Pulse Ox
98.8 F 77 18 101/60 96
07/07/25 08:05 07/07/25 08:05 07/07/25 08:05 07/07/25 08:05 07/07/25 08:05
Lab Results:
Laboratory Data
WBC 4.5 10^3/uL (4.8-10.8) L 07/06/25 06:30
Hgb 8.2 g/dL (13.0-18.0) L 07/06/25 06:30
Plt Count 13 10^3/uL (130-400) L* 07/06/25 06:30
PT 18.4 Sec (11.4-14.6) H 07/04/25 11:22
INR 1.50 07/04/25 11:22
APTT 43.4 Sec (23.4-35.0) H 07/04/25 11:22
eGFR > 60.00 07/06/25 06:30
Physical Exam
HEENT: Moist Mucous Membranes; No Jaundice
Cardiology: Normal Sinus Rhythm
Pulmonary: Clear
GI: Soft
Extremities: Pulses Present
Neuro: Non Focal
[2025-07-07] MEDS: ISOPTO CARPINE BOTH EYES ×2 (08:46→20:28)
[2025-07-07] MEDS: MAGNESIUM OXIDE 500 MG PO (08:46)
[2025-07-07] MEDS: EXELON 3 MG PO ×2 (08:46→20:28)
[2025-07-07] MEDS: LASIX 20 MG PO (08:46)
[2025-07-07] MEDS: TYLENOL 500 MG PO ×2 (08:46→20:35)
[2025-07-07] MEDS: PROTONIX IV 40 MG IV (08:46)
[2025-07-07] MEDS: NSS (PRESERVATIVE FREE) 10 ML IV (08:46)
[2025-07-07] MEDS: EYE BOTH EYES ×2 (08:46→20:28)
[2025-07-07 09:37] LABS: Blood Urea Nitrogen 22 mg/dl (9-20); Calcium 8.6 mg/dl (8.4-10.2); Carbon Dioxide 25 mmol/L (22-30); Chloride 107 mmol/L (98-107); Estimated Creatinine Clearance 47 ml/min; Glucose 144 mg/dl (70-99); Potassium 4.0 mmol/L (3.5-5.1); Sodium 139 mmol/L (135-145); eGFR > 60.00
[2025-07-07 09:48] LABS: Hematocrit 26.3 % (39.0-52.0); Hemoglobin 8.8 g/dL (13.0-18.0); Mean Corp Hgb Conc. 33.5 g/dL (33.0-37.0); Mean Corpuscular Volume 94.6 fL (80.0-94.0); Red Cell Dist. Width 15.2 % (11.5-14.5)
[2025-07-07 11:11] LABS: Absolute Neutrophils -Man Diff 2.0 10^3/uL (1.4-6.5)
[2025-07-07 11:12] LABS: Anisocytosis Slight; Hypochromasia 1+; Normal RBC Morphology No; Platelets Checked Yes; Total Cells Counted 100
[2025-07-07 11:13] LABS: Platelet Count 16 10^3/uL (130-400)
[2025-07-07 11:24] VITALS: BP 113/55
--- NOTE | 2025-07-07 12:36 | W.CON.PAL ---
Consultation
-
Date/Time Consultation Requested: 07/06
Date/Time Consultation Performed: 07/07
Performing Provider: Libertad Ricardo
Reason for Consult: Goals of Care Discussion
Reason for Admission
Illness Course/HPI
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
TIA/subarachnoid bleed, mitral valve disease, thoracic aneurysm, DAMIAN on CPAP, prostate cancer s/p surgical resection admitted with complaints of fatigue, SOB and dizziness and ongoing black stools.
He was recently admitted 06/24 to 06/27 for similar complaints. He was found to have a hg 6.8, platelets 14 and segmented neutrophil count of 22. S/p bone marrow biopsy with +MDS with excess blasts. He also had an endoscopy done which revealed no
AVMs, erosions or ulcerations with only some duodenitis characterized by erythema. GI suspected slow oozing in setting of severe thrombocytopenia. He was discharged on a PPI with instructions to f/u with heme/onc. He did require 2 units of blood and
3 units of platelets total. Eliquis was okay to restart per all teams involved.
Upon admission Hg 6.4, platelets 16, segmented neutrophils 27, eosinophils 18, myelocytes 5, cr 1.2. Two units of packed RBC and 2 units of platelets were ordered in the ED and patient was admitted for further work up. Jayden held. Required
transfusion to which he had a reaction to. Seen by heme onc who recommend outpatient follow up for treatment discussion for MDS. Lorenis remains on hold. No plans for repeat scope per GI.
Seen at bedside this PM. NO family present. STates he came in for low blood levels due to bleeding issue found on bone marrow biopsy. States he was told to follow up outpatient for treatment which he plans to do to see what is being offered. Prior
to this admission he was living with his , independent with ADLs. Hoping to go home soon.
Goals are restorative at this time.
Objective Data
-
Objective Data:
Vital Signs
Temp Pulse Resp BP Pulse Ox
98 F 69 18 113/55 95
07/07/25 11:24 07/07/25 11:24 07/07/25 11:24 07/07/25 11:24 07/07/25 11:24
Laboratory Results
07/07/25 08:07
07/07/25 08:07
PT 18.4 Sec (11.4-14.6) H 07/04/25 11:22
INR 1.50 07/04/25 11:22
APTT 43.4 Sec (23.4-35.0) H 07/04/25 11:22
Total Protein 5.3 g/dl (6.3-8.2) L 07/05/25 04:43
Albumin 2.9 g/dl (3.5-5.0) L 07/05/25 04:43
Urine Color Yellow 07/04/25 22:35
Urine Clarity Clear (Clear) 07/04/25 22:35
Urine pH 7.0 (5.0-9.0) 07/04/25 22:35
Ur Specific [place] 1.010 (<1.030) 07/04/25 22:35
Urine Ketones Negative (Negative) 07/04/25 22:35
Urine Bilirubin Negative (Negative) 07/04/25 22:35
Palliative Performance Scale
Palliative Performance Scale:
PPS Level Ambulation Activity & Evidence of Disease Self Care Intake Conscious Level
100% Full Normal Activity & Work; Full Intake Full
No Evidence of Disease
90% Full Normal Activity & Work; Full Normal Full
Some Evidence of Disease
80% Full Normal Activity with Effort Full Normal or Full
Some Evidence of Disease Reduced
70% Reduced Unable Normal Job/Work Full Normal or Full
Significant Disease Reduced
60% Reduced Unable Hobby/Housework Occasional Normal or Full or Confusion
Significant Disease Assistance Reduced
50% Mainly Sit/Lie Unable to do Any Work Considerable Normal or Full or Confusion
Extensive Disease Assistance Req'd Reduced
40% Mainly in Bed Unable to do Most Activity Mainly Assistance Normal or Full or Drowsy;
Extensive Disease Reduced +/- Confusion
30% Totally Bed Unable to do Any Activity Total Care Normal or Full or Drowsy;
Bound Extensive Disease Reduced +/- Confusion
20% Totally Bed Bound Unable to do Any Activity Total Care Minimal to Full or Drowsy;
Extensive Disease Sips +/- Confusion
10% Totally Bed Bound Unable to do Any Activity Total Care Mouth Care Drowsy or Coma;
Extensive Disease Only +/- Confusion
0%
PPS Score Level:
Care Reviewed
Data Reviewed
Radiology procedure: Report Reviewed
Medical Tests: I reviewed
Reviewed with: Patient
[2025-07-07 16:14] VITALS: BP 128/73
--- NOTE | 2025-07-07 16:45 | W.PN.HOSP.TC ---
Addendum entered and electronically signed by Brittany Rodriguez MD 07/07/25 17:19:
I saw and evaluated the patient independently. I reviewed the resident�s note and agree with findings and plan as documented by Dr. Stevens.
GENERAL: chronically ill appearing elderly male in no apparent distress
HEENT: NC/AT--no O2 requirements
HEART: regular rate and rhythm, +S1, +S2, LIOR
LUNGS : clear to auscultation bilaterally
ABDOM: soft, nontender, nondistended, + bowel sounds
EXT: no cyanosis, clubbing, or edema
NEUROLOGIC: grossly intact
Acute on chronic symptomatic blood loss anemia likely secondary to mucosal bleeding (Recently admitted for the same etiology, s/p EGD done 06/26/2025 without any significant findings throughout the examined upper GI tract to account for bleeding
episodes. At that time GI suspected oozing in the setting of severe thrombocytopenia and anticoagulation)--platelet count dropped again--no need for repeat scopes--s/p pRBC x 2 and platelet transfusions (had transfusion reaction)--cont PPI and
holding Eliquis
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
Transfusion reaction likely febrile nonhemolytic transfusion reaction-- On 07/05 developed back pain, fever, hypotension, tachycardia during administration of platelets, already received 2 units of PRBC prior to this- Premeds have not been shown to
reduce the risk for FNHTR, though would order washed platelets from [place] if this happens again
Paroxysmal atrial fibrillation--rate controlled--cont toprol--hold eliquis
CAD s/p CABG x 1/HFpEF with preserved ejection fraction of 60 to 65%-Continue Lasix 20 mg daily
Essential hypertension-Continue metoprolol
History of mitral valve replacement
Alzheimer's disease--Continue rivastigmine
Obstructive sleep apnea--Nightly CPAP
History of thoracic aneurysm of ascending aorta
History of subarachnoid bleeding/TIA
History of cerebral aneurysm status post clip
History of colon polyps
CODE STATUS-- DNR
Original Note:
Today's Communication/Plan
-
Trend CBC
Assessment / Plan
Assessment / Plan
- Case management saw patient today and patient expresses to go home soon. Goals are restorative at this time.
Acute on chronic symptomatic blood loss anemia likely secondary to mucosal bleeding:
-Recently admitted for the same etiology, s/p EGD done 06/26/2025 without any significant findings throughout the examined upper GI tract to account for bleeding episodes. At that time GI suspected oozing in the setting of severe thrombocytopenia
and anticoagulation.
-This admission Hemoglobin on presentation 6.4 and today it is 8.8. No clinical signs of an acute bleed are seen.
-S/p 2 units blood transfusion in ED
-Holding Eliquis indefinitely due to GI bleed
-[facility]- who states no indication for GI to repeat scope
-Continue Protonix 40 mg IV twice daily for stress ulcer ppx
- Continue to trend hemoglobin.
Myelodysplastic syndrome
Pancytopenia:
- Today WBC count is 4.3, hemoglobin is 8.8, platelet count of 16. No fatigue, weakness, shortness of breath, dizziness, fever, chills, nosebleeds. Continue to observe
-Recently diagnosed with myelodysplastic syndrome with excess blasts after bone marrow biopsy
-Heme-onc will continue to monitor CBC and transfuse prn outpt upon discharge
-Follow-up hematology and oncology as an outpatient when stable for treatment
Transfusion reaction likely febrile nonhemolytic transfusion reaction:
- On 07/05 developed back pain, fever, hypotension, tachycardia during administration of platelets, already received 2 units of PRBC prior to this
- Monitor CBC and for bleeding
- Premeds have not been shown to reduce the risk for FNHTR, though would order washed platelets from [place] if this happens again
Paroxysmal atrial fibrillation
- Pulse is 79 and well-controlled. No symptoms of dizziness, syncope, chest pain, tachycardia, headache, shortness of breath.
- Continue using metoprolol succinate for ventricular rate control and reducing myocardial oxygen demand.
-Holding Eliquis in the setting of GI bleed
CAD s/p CABG x 1
HFpEF with preserved ejection fraction of 60 to 65%:
-Continue Lasix 20 mg daily
Essential hypertension:
- Today's blood pressure is 120s over 73 and well-controlled. Patient is asymptomatic.
-Continue metoprolol
History of mitral valve replacement
Alzheimer's disease:
-Continue rivastigmine
Obstructive sleep apnea:
-Nightly CPAP
#History of thoracic aneurysm of ascending aorta
#History of subarachnoid bleeding/TIA
#History of cerebral aneurysm status post clip
#History of colon polyps
CODE STATUS DNR
Anticipated Discharge: 24 - 48 hours
Subjective/Interval History
-
Date of Service: July 07, 2025
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
of 6065%, hyperlipidemia, history of TIA/subarachnoid bleed, mitral valve disease, thoracic aneurysm, DAMIAN on CPAP, history of colonic polyps, history of prostate cancer status postsurgical resection, myelodysplastic syndrome recently diagnosed on
bone marrow biopsy presents to [place] emergency department with fatigue, shortness of breath, dizziness, chest pain that has resolved, ongoing black stools and denies any bright red blood. In the ED BP was 110/58, heart rate 65, respiratory 16,
afebrile satting well on room air. He hemoglobin was 6.4, platelets are 16, segmented neutrophils 27, eosinophils 18, myelocytes 5, creatinine 1.2. Heme-onc consulted for further evaluation of his abnormal CBC. GI was consulted who also stated no
indication to repeat scope. He also had febrile nonhemolytic transfusion reaction which consisted of back pain fever hypertension and tachycardia during the administration of first unit of platelets. Needs watch platelets if he is to require any
further platelet transfusions. Dr. [place] oncologist recommends holding Eliquis indefinitely, monitoring CBC holding off on further blood products. Palliative care to see patient today.
No acute medical complaints.
No headache, nausea, vomiting, diarrhea, constipation, fever, chills, malaise.
Objective Data
-
Labs:
Laboratory Results
07/07/25
08:07
WBC 4.3 L
Hgb 8.8 L
Hct 26.3 L
Plt Count 16 L* D
Sodium 139
Potassium 4.0
Chloride 107
Carbon Dioxide 25
BUN 22 H
Creatinine 1.1
Glucose 144 H
Calcium 8.6
Vital Signs:
Vital Signs
Temp Pulse Resp BP Pulse Ox
97.8 F 79 18 128/73 100
07/07/25 16:14 07/07/25 16:14 07/07/25 16:14 07/07/25 16:14 07/07/25 16:14
I&O
07/06/25 07/07/25 07/08/25
06:59 06:59 06:59
Intake Total 860 / 860
Output Total 1000 / 1000 900 / 900 500 / 500
Balance -1000 / -1000 -40 / -40 -500 / -500
Review of Systems
-
History Source: Patient
All other systems: Reviewed and negative
Physical Exam
-
General: No Apparent Distress and Appears Chronically Ill
HEENT: Normocephalic
Respiratory: Clear to Auscultation
Cardiac: Regular Rhythm and S1/S2
GI: Soft, Nontender and Nondistended
Musculoskeletal: No Edema
Skin: Warm
Neuro: AO x 3
Psych: Calm
Data Reviewed
-
Labs: Labs Reviewed by me and Discussed with Physician
[2025-07-07] MEDS: TOPROL XL 50 MG PO (17:23)
[2025-07-07] MEDS: PROTONIX 40 MG PO (20:28)
[2025-07-07 23:16] VITALS: BP 105/57
[2025-07-08 07:14] VITALS: BP 121/60
[2025-07-08 08:09] LABS: Hematocrit 24.8 % (39.0-52.0); Hemoglobin 8.3 g/dL (13.0-18.0); Mean Corp Hgb Conc. 33.5 g/dL (33.0-37.0); Mean Corpuscular Volume 93.9 fL (80.0-94.0); Platelet Count 17 10^3/uL (130-400); Red Cell Dist. Width 15.3 % (11.5-14.5)
[2025-07-08] MEDS: PROTONIX 40 MG PO (08:31)
[2025-07-08] MEDS: MAGNESIUM OXIDE 500 MG PO (08:31)
[2025-07-08] MEDS: EXELON 3 MG PO (08:31)
[2025-07-08 08:32] LABS: ALT (SGPT) 14 U/L (0-50); AST (SGOT) 14 U/L (17-59); Albumin 3.2 g/dl (3.5-5.0); Alkaline Phosphatase 64 U/L (38-126); Blood Urea Nitrogen 22 mg/dl (9-20); Calcium 8.3 mg/dl (8.4-10.2); Carbon Dioxide 27 mmol/L (22-30); Chloride 109 mmol/L (98-107); Estimated Creatinine Clearance 43 ml/min; Glucose 98 mg/dl (70-99); Potassium 4.5 mmol/L (3.5-5.1); Sodium 141 mmol/L (135-145); Total Protein 5.8 g/dl (6.3-8.2); eGFR 59.63
[2025-07-08] MEDS: EYE BOTH EYES (08:32)
[2025-07-08] MEDS: ISOPTO CARPINE BOTH EYES (08:32)
[2025-07-08] MEDS: LASIX 20 MG PO (08:32)
--- NOTE | 2025-07-08 08:32 | W.PN.HOSP.TC ---
Addendum entered and electronically signed by Brittany Rodriguez MD 07/08/25 15:27:
I saw and evaluated the patient independently. I reviewed the resident�s note and agree with findings and plan as documented by Dr. Stevens.
GENERAL: chronically ill appearing elderly male in no apparent distress
HEENT: NC/AT--no O2 requirements
HEART: regular rate and rhythm, +S1, +S2, LIOR
LUNGS : clear to auscultation bilaterally
ABDOM: soft, nontender, nondistended, + bowel sounds
EXT: no cyanosis, clubbing, or edema
NEUROLOGIC: grossly intact
Acute on chronic symptomatic blood loss anemia likely secondary to mucosal bleeding (Recently admitted for the same etiology, s/p EGD done 06/26/2025 without any significant findings throughout the examined upper GI tract to account for bleeding
episodes. At that time GI suspected oozing in the setting of severe thrombocytopenia and anticoagulation)--platelet count dropped again--no need for repeat scopes--s/p pRBC x 2 and platelet transfusions (had transfusion reaction)--cont PPI and
stopping Eliquis
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
Transfusion reaction likely febrile nonhemolytic transfusion reaction-- On 07/05 developed back pain, fever, hypotension, tachycardia during administration of platelets, already received 2 units of PRBC prior to this- Premeds have not been shown to
reduce the risk for FNHTR, though would order washed platelets from [place] if this happens again
Paroxysmal atrial fibrillation--rate controlled--cont toprol--hold eliquis
CAD s/p CABG x 1/HFpEF with preserved ejection fraction of 60 to 65%--Continue Lasix 20 mg daily
Essential hypertension--Continue metoprolol
History of mitral valve replacement
Alzheimer's disease--Continue rivastigmine
Obstructive sleep apnea--Nightly CPAP
History of thoracic aneurysm of ascending aorta
History of subarachnoid bleeding/TIA
History of cerebral aneurysm status post clip
History of colon polyps
CODE STATUS-- DNR
OK for D/C and F/U with ONC to discuss next steps
Original Note:
Today's Communication/Plan
-
- f/u with oncology outpatient
- CMP and CBC in 1 week
Assessment / Plan
Assessment / Plan
Acute on chronic symptomatic blood loss anemia likely secondary to mucosal bleeding:
-Recently admitted for the same etiology, s/p EGD done 06/26/2025 without any significant findings throughout the examined upper GI tract to account for bleeding episodes. At that time GI suspected oozing in the setting of severe thrombocytopenia
and anticoagulation.
-This admission Hemoglobin on presentation 6.4 and today it is 8.8. No clinical signs of an acute bleed are seen.
-S/p 2 units blood transfusion in ED
-[facility]- who states no indication for GI to repeat scope
- CBC and CMP in 1 week with PCP
- hold Eliquis indefinitely due to the risk of GI bleed
- Continue Protonix 40 mg PO twice daily for stress ulcer ppx
Myelodysplastic syndrome
Pancytopenia:
- Today WBC count is 4.0, hemoglobin is 8.3, platelet count of 17. No fatigue, weakness, shortness of breath, dizziness, fever, chills, nosebleeds. Continue to observe
-Recently diagnosed with myelodysplastic syndrome with excess blasts after bone marrow biopsy
- palliative care has seen patient and state that goals are restorative at this time
-Heme-onc will continue to monitor CBC and transfuse prn outpt upon discharge
- Has outpatient visit with Dr. Hutchinson on 07/10; If he desires treatment, he most likely will be started on therapy with HMA and luspatercept for his myelodysplasia in the next 1 to 2 weeks.
Transfusion reaction likely febrile nonhemolytic transfusion reaction:
- On 07/05 developed back pain, fever, hypotension, tachycardia during administration of platelets, already received 2 units of PRBC prior to this
- Monitor CBC and for bleeding
- Premeds have not been shown to reduce the risk for FNHTR, though would order washed platelets from [place] if this happens again
Paroxysmal atrial fibrillation
- Pulse is 79 and well-controlled. No symptoms of dizziness, syncope, chest pain, tachycardia, headache, shortness of breath.
- Continue using metoprolol succinate for ventricular rate control and reducing myocardial oxygen demand.
-Holding Eliquis indefinitely
CAD s/p CABG x 1
HFpEF with preserved ejection fraction of 60 to 65%:
-Continue Lasix 20 mg daily
Essential hypertension:
- Today's blood pressure is 120s over 73 and well-controlled. Patient is asymptomatic.
-Continue metoprolol
History of mitral valve replacement
Alzheimer's disease:
-Continue rivastigmine
Obstructive sleep apnea:
-Nightly CPAP
#History of thoracic aneurysm of ascending aorta
#History of subarachnoid bleeding/TIA
#History of cerebral aneurysm status post clip
#History of colon polyps
CODE STATUS DNR
Anticipated Discharge: Today
Subjective/Interval History
-
Date of Service: July 08, 2025
No acute medical complaints.
No headache, nausea, vomiting, diarrhea, constipation, fever, chills, malaise.
Objective Data
-
Labs:
Laboratory Results
07/08/25
07:35
WBC 4.0 L
Hgb 8.3 L
Hct 24.8 L
Plt Count 17 L*
Sodium 141
Potassium 4.5
Chloride 109 H
Carbon Dioxide 27
BUN 22 H
Creatinine 1.2
Glucose 98
Calcium 8.3 L
Total Bilirubin 1.1
AST 14 L
ALT 14
Alkaline Phosphatase 64
Vital Signs:
Vital Signs
Temp Pulse Resp BP Pulse Ox
98.5 F 75 17 105/57 95
07/07/25 23:16 07/07/25 23:16 07/07/25 23:16 07/07/25 23:16 07/07/25 23:16
I&O
07/07/25 07/08/25 07/09/25
06:59 06:59 06:59
Intake Total 860 / 860 480 / 480
Output Total 900 / 900 1100 / 1100
Balance -40 / -40 -620 / -620
Review of Systems
-
History Source: Patient
All other systems: Reviewed and negative
Physical Exam
-
General: No Apparent Distress and Appears Chronically Ill
HEENT: Normocephalic
Respiratory: Clear to Auscultation
Cardiac: Regular Rhythm and S1/S2
GI: Soft, Nontender and Nondistended
Musculoskeletal: No Edema
Skin: Warm
Neuro: AO x 3
Psych: Calm
Data Reviewed
-
Labs: Labs Reviewed by me and Discussed with Physician
[2025-07-08 09:07] LABS: Absolute Neutrophils -Man Diff 1.8 10^3/uL (1.4-6.5); Normal RBC Morphology No; Platelets Checked Yes
[2025-07-08 09:08] LABS: Acanthocytes 1+; Anisocytosis 1+; Hypochromasia 1+; Ovalocytes 1+; Polychromasia 1+; Schistocytes FEW; Total Cells Counted 100
--- NOTE | 2025-07-08 12:27 | W.PN.ONC ---
Documented by User: Khushi Campos MD, Resident 07/08/25 12:36
Today's Communication / Plan
-
Monitor CBC, transfuse as needed
Okay for discharge from heme/onc standpoint. F/u with Dr. Hutchinson outpatient for treatment.
Impression
Impression
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
Pancytopenia s/p 2U PrBC during hospitalization, last 07/04
Dark stools
Abdominal discomfort
Fatigue
Shortness of breath
Combined systolic and diastolic HF
Hx CAD and valvular disease s/p stent, mitral valve repair, AVR/CABG
Hx a.fib
platelet transfusion reaction, suspect febrile non-hemolytic transfusion rxn on 07/04/2025
Plan
Plan
--Hold Eliquis indefinitely
--on PPI
--Monitor CBC and for bleeding
--Premeds have not been shown to reduce the risk for FNHTR, though would order washed platelets from [place] if this happens again - pathology comment for post-transfusion reaction stated would also favor FNHTR
--Palliative care to see patient on 07/07; now DNR however would like to continue restorative care.
--Has outpatient visit with Dr. Hutchinson on 07/10; If he desires treatment, he most likely will be started on therapy with HMA and luspatercept for his myelodysplasia in the next 1 to 2 weeks.
Subjective/Objective
Subjective/Objective
Vital Signs:
Vital Signs
Temp Pulse Resp BP Pulse Ox
99.6 F 64 18 121/60 97
07/08/25 07:14 07/08/25 07:14 07/08/25 07:14 07/08/25 07:14 07/08/25 07:14
Lab Results:
Laboratory Data
WBC 4.0 10^3/uL (4.8-10.8) L 07/08/25 07:35
Hgb 8.3 g/dL (13.0-18.0) L 07/08/25 07:35
Plt Count 17 10^3/uL (130-400) L* 07/08/25 07:35
PT 18.4 Sec (11.4-14.6) H 07/04/25 11:22
INR 1.50 07/04/25 11:22
APTT 43.4 Sec (23.4-35.0) H 07/04/25 11:22
eGFR 59.63 07/08/25 07:35

Documented by User: MARIN Castillo 07/08/25 13:45
Plan
Plan
--Hold Eliquis indefinitely
--on PPI
--Monitor CBC and for bleeding
--Premeds have not been shown to reduce the risk for FNHTR, though would order washed platelets from [place] if this happens again - pathology comment for post-transfusion reaction stated would also favor FNHTR
--Palliative care to see patient on 07/07; now DNR however would like to continue restorative care.
--Has outpatient visit with Dr. Hutchinson on 07/10; If he desires treatment, he most likely will be started on therapy with HMA and luspatercept for his myelodysplasia in the next 1 to 2 weeks.
Pt seen and examined. No new complaints. Case discussed with the hospitalist team and pt at his bedside. Discharge planning underway. MARIN Bianchi
--- NOTE | 2025-07-08 15:11 | CM ---
Patient seen at bedside with physicians on . Patient for discharge home today with [facility] for follow up. Oncology to call patient and CM provided IMM for patient to complete form, patient requested waiting for . CM called to and
left VM requesting completion of the IMM and that [facility] was consulted to follow up with patient at discharge. CM will continue to follow for discharge planning needs.
Plan;home with [facility] and oncology in office as outpatient
[2025-07-08 15:30] VITALS: BP 129/63
--- NOTE | 2025-07-08 19:19 | W.DCSUMMARY ---
Addendum entered and electronically signed by Brittany Rodriguez MD 07/09/25 07:20:
Read, reviewed, and agree. See same day progress note for additional details. Time spent coordinating care, DC planning, review of DC plan of care with resident, transition of care, review of records in EMR, med rec, consults, notes, d/w
consultants, nursing, family, and CM = 36 minutes
Original Note:
Discharge Summary
Discharge Data
Date of Admission: 07/04/25
Date of Discharge: 07/08/25
-
Pending Results: No
Hospital Course
Discharging Physician : Dr. Brittany Rodriguez and Dr. Gabe Stevens
Disposition : Home with visiting nurse
Primary care physician : Dr. Rambo Mcdowell
Principal Discharge diagnosis : Acute on chronic symptomatic blood loss anemia likely secondary to mucosal bleeding, myelodysplastic syndrome, transfusion reaction likely febrile nonhemolytic transfusion reaction
Chronic Discharge diagnosis : Paroxysmal atrial fibrillation, CAD status post CABG x 1, HFpEF with preserved ejection fraction of 60-65%, essential hypertension, history of mitral valve replacement, Alzheimer's disease, obstructive sleep apnea
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
failure (05/13/2024 echo 60 to 65% EF) hyperlipidemia, history of TIA/subarachnoid bleed, mitral valve disease, thoracic aneurysm, DAMIAN on CPAP, history of colon polyps, history of prostate cancer s/p surgical resection presents to [place] ED with
complaints of fatigue, SOB and dizziness.
Problem #1:
Acute on chronic symptomatic blood loss anemia secondary to mucosal bleeding
Transfusion reaction likely febrile nonhemolytic transfusion reaction:
- Recently admitted for the same etiology on 06/24/2025 to 06/26/2025. Gi was consulted and he received an EGD on 06/26/2025 which showed no significant findings. Then oncology was consulted and ordered bone marrow biopsy for the patient. The biopsy
was positive for myelodysplastic syndrome with excess blasts and pancytopenia ( main cause of his anemia). On 07/04/25 this admission his hemoglobin was 6.4, RBC 2.02, hematocrit 19.2, platelet count 16. He received 2 units of leukocyte reduced
red blood cells and 1 unit of pathogen pathogen reduce platelets. Soon after receiving the platelets he developed back pain, fever, hypertension, tachycardia. Treated with 1 g Tylenol, 500 cc bolus and patient was stabilized. On discharge
hemoglobin is 8.3 and patient has no clinical features of an acute bleed. On discharge his platelet count is 17, however he would need washed platelets from [place] to prevent a reaction like this from happening again. Oncology will continue to
monitor CBC and transfuse as needed outpatient on discharge. In coordination with oncology we have decided to continue PPI for stress ulcer prophylaxis on discharge and stop Eliquis indefinitely due to risk of GI bleed.
- Patient has an outpatient appointment with Dr. Hutchinson on 07/10/2025. If he desires treatment he most likely will be started on therapy with hypomethylating agents and Luspataracept for his myelodysplasia in the next 1 to 2 weeks.
- CBC and CMP in 1 week with PCP.
- Patient and her were not aware of the diagnosis of myelodysplastic syndrome. Explained to them what the clinical features of the diagnosis entails, why her keeps having low hgb counts this admission and previous admission, and
also explained to them that they need to be seen by Dr. Hutchinson on 07/10/2025. Called Dr. Hutchinson's front end loader driver to remind them to call the patient so that they remember the appointment.
Problem #2:
Paroxysmal atrial fibrillation:
- Rate is 86 on discharge, well-controlled, patient is asymptomatic.
-Was on home dose metoprolol succinate 50 Mg p.o. every afternoon throughout hospital stay and will be discharged on same dose.
Problem #3:
Coronary artery disease status post CABG x 1
Heart failure with preserved ejection fraction of 60-65%:
-On discharge patient had no dyspnea, chest pain, shortness of breath, fatigue, dizziness.
-On physical examination on discharge patient had no pitting edema, lungs were clear to auscultation, cardiac exam normal.
-Continue Lasix 20 mg daily on discharge.
Problem #4:
Essential hypertension:
-His blood pressure on discharge was 129/63 and well-controlled.
- Continue metoprolol 50 Mg p.o. every afternoon on discharge
Problem #5:
Alzheimer's disease:
- Continue rivastigmine on discharge
Problem #6 :
obstructive sleep apnea:
- Continue nightly CPAP on discharge
History of thoracic aneurysm of ascending aorta
History of subarachnoid bleeding/TIA
History of cerebral aneurysm status post clip
History of colon polyps
Patient is DNR
Important imaging findings :
Chest x-ray 07/05/2025:
-IMPRESSION:
Mild diffuse interstitial prominence may reflect pulmonary interstitial edema and/or pneumonitis. Probable superimposed left basilar atelectasis and/or pneumonia.
Cannot rule out underlying chronic interstitial lung disease.
EKG 07/04/2025:
-Test Reason : AFIB
Blood Pressure : */* mmHG
Vent. Rate : 71 BPM Atrial Rate : * BPM
P-R Int : * ms QRS Dur : 102 ms
QT Int : 408 ms P-R-T Axes : * -15 38 degrees
QTcB Int : 443 ms
ATRIAL FIBRILLATION WITH A COMPETING JUNCTIONAL PACEMAKER
ABNORMAL ECG
WHEN COMPARED WITH ECG OF 24-Jun-2025 10:09,
ATRIAL FIBRILLATION HAS REPLACED JUNCTIONAL RHYTHM
Confirmed by ELA RECINOS MD ([id number]) on 07/05/2025 1:06:44 PM
Procedure findings :
Discharge Plan
-
Patient Disposition: Home with Home Care
Discharge Diagnosis/Procedures: Acute on chronic symptomatic blood loss anemia secondary to mucosal bleeding, myelodysplastic syndrome, febrile nonhemolytic transfusion reaction, paroxysmal atrial fibrillation, CAD status post CABG, heart failure
with preserved ejection fraction, essential hypertension, history of mitral valve replacement, Alzheimer's disease, obstructive sleep apnea
Condition: Fair
Diet: Low Fat
Activity: As tolerated
Driving Restrictions: Not until seen by your Dr
Bathing Restrictions: None
Blood Work: CBC in 1 week with PCP
CMP in 1 week with PCP
Other Services: VN
Referrals:
Rambo Mcdowell MD [Family Provider, Family Practice] - in less than 1 week
Adi Hutchinson MD [Active, Hematology / Oncology] - in less than 1 week
Additional Discharge Medication Instructions: Hold eliquis indefinitely due to risk of GI bleed as per recc of oncology
pantoprazole 40 mg BID (twice a day)
Prescriptions:
New
pantoprazole 40 mg Tablet,Delayed Release (Dr/Ec)
40 mg PO BID Qty: 30 0RF
Continued
atorvastatin 40 MG tablet
40 mg PO QPM Qty: 30 0RF
furosemide 20 MG tablet
20 mg PO DAILY
polyethylene glycol 3350 [ClearLax] 17 GM powder in packet
17 gm PO DAILYPRN PRN (Reason: constipation)
metoprolol succinate 50 MG tablet extended release 24 hr
50 mg PO QPM
pilocarpine HCl 1 % Drops
1 drp BOTH EYES BID
acetaminophen [Tylenol Extra Strength] 500 mg Tablet
500 mg PO Q6HPRN PRN (Reason: mild pain)
rivastigmine tartrate 3 mg Capsule
3 mg PO BID
magnesium oxide 200 mg magnesium Tablet
600 mg PO DAILY
meclizine 12.5 mg tablet
25 mg PO Q8HPRN PRN (Reason: vertigo)
Discontinued
Eliquis 2.5 mg Tablet
2.5 mg PO BID
Rx Instructions:
patient has free samples
pantoprazole 40 mg tablet,delayed release (DR/EC)
40 mg PO DAILY Qty: 30 0RF
Discharge Orders:
Discharge Patient (As Directed); Ordered 07/08/25
Ordered By: Gabe Stevens
Discharge Date and Time
Discharge Date/Time: 07/08/25 17:20
Print Language: RUSSIAN
== END 2025-07-08 17:20 | disposition home health service (06) | DRG 809 ==
LOC: 4 EAST ACU 13:35
PROVIDERS: Nurse Practitioner Gerontology; Student in an Organized Health Care Education/Training Program; ADMITTING PHYSICIAN Hospitalist; ATTENDING PHYSICIAN Internal Medicine; CONSULT PHYSICIAN Internal Medicine Hematology & Oncology; CONSULT PHYSICIAN Nurse Practitioner Gerontology; EMERGENCY PHYSICIAN Student in an Organized Health Care Education/Training Program; FAMILY PHYSICIAN Family Medicine
PROC: 5A09357 Assistance with Respiratory Ventilation, Less than 24 Consecutive Hours, Continuous Positive Airway Pressure (ICD-10-PCS; 2025-07-04)
PROC: 30233R1 Transfusion of Nonautologous Platelets into Peripheral Vein, Percutaneous Approach (ICD-10-PCS; 2025-07-04)
PROC: 30233N1 Transfusion of Nonautologous Red Blood Cells into Peripheral Vein, Percutaneous Approach (ICD-10-PCS; 2025-07-04)
DX: D61.818 Other pancytopenia (principal); D68.32 Hemorrhagic disorder due to extrinsic circulating anticoagulants; K92.2 Gastrointestinal hemorrhage, unspecified; I50.32 Chronic diastolic (congestive) heart failure; D46.9 Myelodysplastic syndrome, unspecified; D62 Acute posthemorrhagic anemia; E78.00 Pure hypercholesterolemia, unspecified; I11.0 Hypertensive heart disease with heart failure; I25.10 Atherosclerotic heart disease of native coronary artery without angina pectoris; K21.9 Gastro-esophageal reflux disease without esophagitis; I48.0 Paroxysmal atrial fibrillation; K22.70 Barrett's esophagus without dysplasia; I35.1 Nonrheumatic aortic (valve) insufficiency; M19.90 Unspecified osteoarthritis, unspecified site; G47.33 Obstructive sleep apnea (adult) (pediatric); G30.9 Alzheimer's disease, unspecified; M54.9 Dorsalgia, unspecified; I25.5 Ischemic cardiomyopathy; D53.9 Nutritional anemia, unspecified; F02.80 Dementia in other diseases classified elsewhere, unspecified severity, without behavioral disturbance, psychotic disturbance, mood disturbance, and anxiety; R50.84 Febrile nonhemolytic transfusion reaction; Z66 Do not resuscitate; Z95.1 Presence of aortocoronary bypass graft; Z95.5 Presence of coronary angioplasty implant and graft; Z95.3 Presence of xenogenic heart valve; Z90.49 Acquired absence of other specified parts of digestive tract; Z79.01 Long term (current) use of anticoagulants; Z85.46 Personal history of malignant neoplasm of prostate; Z90.79 Acquired absence of other genital organ(s); Z86.0100 Personal history of colon polyps, unspecified; Z86.73 Personal history of transient ischemic attack (TIA), and cerebral infarction without residual deficits; Z86.79 Personal history of other diseases of the circulatory system
CPT/HCPCS: 36430; 71045; 80048; 80053; 81003; 81015; 83010; 83605; 83615; 85025; 85027; 85610; 85730; 86078; 86850; 86900; 86901; 86920; 87040; 92526; 92610; 93005; 94660; 99291; P9016; P9073

== ENCOUNTER 2025-07-19 13:01 | Inpatient (IN) | payer MEDICARE, OTHER, SELFPAY ==
[2025-07-19] VITALS (18 sets, daily range): BP systolic 103–139; BP diastolic 48–77; BMI 25.7
--- NOTE | 2025-07-19 07:59 | ED.GENMED ---
History of Present Illness
General
Chief Complaint: Fall
Time Seen by Provider: 07/19/25 07:57
History of Present Illness
History of Present Illness:
84-year-old male with history of A-fib no longer on anticoagulants, hypertension, hyperlipidemia, and recent diagnosis of myelodysplastic syndrome presents to the emergency department for evaluation after a fall from bed. States he was attempting
to get out of bed when he slid to the ground and was unable to get up for approximately 30 minutes. States he was lying on his buttocks side, currently complains of discomfort to the buttocks as well as chronic right shoulder pain. Denies head
strike. Denies any vision changes, neck pain, chest pain, or shortness of breath. He denies any worsening weakness compared to his recent hospitalization states he has been quite active since that time. Denies any black or bloody stool
Past History
Past History
ED Past Medical History: Arrthythmia (Atrial fibrillation), CAD, CVA (TIA, cerebral aneurysm subarachnoid bleed), GERD, HTN, Hypercholesterolemia, Valvular disease (Aortic regurgitation), Other (Clipped cerebral aneurysm . Osteoarthritis/tendinitis
left shoulder.) and Other (Obstructive sleep apnea/BiPAP)
ED Past Surgical History: Appendectomy, Cardiac (Mitral valve repair in 1994, CABG times 12/15/1994, PTCA with stent 2004, August 2017, bovine aortic valve replacement, CABG redo), Cholecystectomy and Other (Left inguinal hernia repair, TURP)
Patient has exhibited threatening behavior?: No
PSI?: No
Social History
Tobacco: Non-smoker
Alcohol: None
Drug: None
Personal:
Living: with family
Employment: Retired
Family History
Family History: Hypertension
Review of Systems
Review of Systems
Allergies reviewed?: Yes
All Other Systems: ROS reviewed and negative except as documented in HPI and ROS
Phy Exam
Physical Exam
Physical Exam:
GEN: Well appearing, NAD, WDWN
HEENT: Oral mucosa moist, no scleral icterus. Normocephalic and atraumatic, no midline cervical spine tenderness
Cardiac: Regular rate and rhythm
Lung: No respiratory distress, no tachypnea, lungs clear to auscultation bilaterally
Abdomen: Soft, grossly nontender, faint ecchymosis to the lateral abdomen bilaterally likely from subcu heparin injection during recent hospital stay
MSK: No gross deformity or injuries. No midline cervical/thoracic/lumbar spinal tenderness. Minor stage I pressure injury to the midline upper gluteal cleft with no skin breakdown, pelvis is stable with no crepitus or tenderness
Skin: Good color, no pallor or jaundice, no rashes
Neuro: AO x3, moves all extremities freely
Psych: Calm, cooperative
Course
Orders/Labs/Results
Orders:
Orders
07/19/25 07:57
CR Foot - Left Min 3 Views Urgent
Comment:
Reason For Exam: fall
07/19/25 08:02
Comprehensive Metabolic Panel Urgent
07/19/25 08:39
0.9% Sodium Chloride 1000 ml [Nss] 1,000 ml IV BOLUS
07/19/25 08:53
Complete Blood Count/With Diff Urgent
Manual Differential Urgent
07/19/25 09:10
Type+Screen Urgent
07/19/25 09:17
Blood Bank Products [* Blood Bank Products] Urgent
Blood Bank Products: *Packed RBC Leuko(PRBC's)
Quantity: 2
Transfuse Today: Yes
Reason: Anemia
07/19/25 12:24
Admit/Transfer Patient As Directed
Co-Sign Provider:
Level of Care: Inpatient admission
Assign to:: Medical/Surgical
Physician / Group: Dr. Jane
Diagnosis: Symptomatic Anemia
Reason for Hospitalization: Symptomatic Anemia
Expected length of stay greater than two midnights?: Yes
ELOS- Estimated Length of Stay in days: 3
I certify the patient meets the requirements for IP care: Yes
PRN Pain Medication Management As Directed
May give lesser potent ordered pain med per pt: Yes
preference::
Protocol:: Medication orders for pain may be administered in a
manner that supports deferring to patient preference
when the pt is:
- Requesting an ordered lesser potent pain medication.
Least to most potent pain medications are defined
as: acetaminophen < NSAID < tramadol < opioids
(morphine, oxycodone, hydromorphone).
- Requesting a lesser dose of the same medication IF
ORDERED.
- Requesting a less intrusive route of administration
if both routes are prescribed by the provider (PO <
IV).
07/19/25 12:25
Code Status As Directed
Resuscitation Status: Do not resuscitate
Reached after discussion with pt or family/Healthcare POA: Yes
DNR Bracelet Application ONCE
Abnormal Lab Results
07/19/25 07/19/25 07/19/25
08:02 08:53 09:10
WBC 2.5 L 10^3/uL
(4.8-10.8)
RBC 2.07 L 10^6/uL
(4.70-6.10)
Hgb 6.6 L* g/dL
(13.0-18.0)
Hct 19.7 L* %
(39.0-52.0)
MCV 95.2 H fL
(80.0-94.0)
MCH 31.9 H pg
(27.0-31.0)
RDW 15.4 H %
(11.5-14.5)
Plt Count 32 L 10^3/uL
(130-400)
Abs Neuts (Manual) 0.9 L* 10^3/uL
(1.4-6.5)
Segmented Neutrophils 32 L %
(42-75)
Band Neutrophils 4 H %
(0-3)
Chloride 108 H mmol/L
(98-107)
BUN 40 H mg/dl
(9-20)
Creatinine 1.6 H mg/dL
(0.7-1.3)
Glucose 121 H mg/dl
(70-99)
Albumin 3.4 L g/dl
(3.5-5.0)
Crossmatch IS Only See Detail
07/19/25 08:53
07/19/25 08:02
Vital Signs
Initial and Last Documented VS:
Initial Vital Signs
Pulse Resp BP Pulse Ox
98 18 108/67 95
07/19/25 07:53 07/19/25 07:53 07/19/25 07:53 07/19/25 07:53
Last Documented Vital Signs
Temp Pulse Resp BP Pulse Ox
98.4 F 98 18 115/48 98
07/19/25 13:28 07/19/25 13:28 07/19/25 13:28 07/19/25 13:28 07/19/25 13:28
MDM/Problems Addressed
MDM/Problems Addressed:
84 male presents with generalized weakness and a fall is found to be markedly anemic with mild MIKAEL likely prerenal in nature. He will likely need postacute rehab after medical stabilization thus will admit to the hospitalist service
*Pulse Oximetry
SaO2: 95
Patient hypoxic: no
*Critical Care Note
Total Time (30-74mins, 75-104mins- exclusive of procedures): Not Applicable
ED Attending Note
-
Portions of this chart may have been created with voice recognition software.� Occasional wrong word or��sound alike� substitutions may have occurred due to the inherent limitations of voice recognition software.
Discharge Plan
Departure
Patient Disposition: Admit
Date of Disposition: 07/19/25
Time of Disposition: 09:18
Admit to: Med/Surg
Presentation/result/management discussed w/ accepting MD/DO: Hospitalist
Discharge Problem:
Symptomatic anemia, MIKAEL (acute kidney injury), Generalized weakness
Interventions
Interventions:
*Risk Screen - Suicide Last Done: 07/19/25 07:55
*General Assessment Last Done: 07/19/25 07:57
*Neglect/Abuse Screening Last Done: 07/19/25 07:55
*ED- Fall Risk Assessment Last Done: 07/19/25 07:55
*ED COVID-19 Vaccine History Last Done: 07/19/25 07:55
*Nursing Disposition Last Done: 07/19/25 14:19
ED-Musculoskeletal Assessment Last Done: 07/19/25 07:56
ED- Neurological Assessment Last Done: 07/19/25 07:56
ED-Skin Assessment Last Done: 07/19/25 07:56
[2025-07-19 08:34] LABS: ALT (SGPT) 28 U/L (0-50); AST (SGOT) 22 U/L (17-59); Albumin 3.4 g/dl (3.5-5.0); Alkaline Phosphatase 46 U/L (38-126); Blood Urea Nitrogen 40 mg/dl (9-20); Calcium 9.3 mg/dl (8.4-10.2); Carbon Dioxide 25 mmol/L (22-30); Chloride 108 mmol/L (98-107); Estimated Creatinine Clearance 31 ml/min; Glucose 121 mg/dl (70-99); Potassium 4.6 mmol/L (3.5-5.1); Sodium 141 mmol/L (135-145); Total Protein 6.6 g/dl (6.3-8.2); eGFR 42.22
[2025-07-19] MEDS: NSS 1000 IV (08:55)
[2025-07-19 09:11] LABS: Hematocrit 19.7 % (39.0-52.0); Hemoglobin 6.6 g/dL (13.0-18.0); Mean Corp Hgb Conc. 33.5 g/dL (33.0-37.0); Mean Corpuscular Volume 95.2 fL (80.0-94.0); Platelet Count 32 10^3/uL (130-400); Red Cell Dist. Width 15.4 % (11.5-14.5)
[2025-07-19 09:42] LABS: Absolute Neutrophils -Man Diff 0.9 10^3/uL (1.4-6.5); Anisocytosis 1+; Hypochromasia 1+; Normal RBC Morphology No; Ovalocytes 1+; Platelets Checked Yes; Polychromasia Slight; Total Cells Counted 100
--- NOTE | 2025-07-19 12:27 | HPS.HSE ---
Family Physician
-
Family Physician: Rambo Mcdowell
Chief Complaint
-
Fall
History of Present Illness
84M with MDS, paroxysmal atrial fibrillation on Eliquis, CAD status post CABG, mitral valve replacement, Griffin's esophagus, history of cerebral aneurysm status post clip, hypertension, obstructive sleep apnea, prostate cancer presents with a fall.
Patient reports that he was standing and his feet slipped out from under him, he denies dizziness, chest pain, vision changes, difficulty breathing, palpitations. He did not hit his head or lose consciousness.
He presented to the ED and was found to have hypotension with BP 108/67 and low hemoglobin of 6.6. Blood transfusion was ordered and patient was admitted to medicine.
Medical History
Past Medical History
Past Medical History: Reports Other (paroxysmal atrial fibrillation on Eliquis, CAD status post CABG, mitral valve replacement, Griffin's esophagus, history of cerebral aneurysm status post clip, hypertension, obstructive sleep apnea, prostate
cancer)
Past Surgical History: Reports None
Social History
Tobacco: Non-smoker
Alcohol: None
Drug: None
Family History
Family History: Not pertinent
Allergies / Home Medications
Allergies reflects when Allergies were last updated in [facility].
Home Medications with original date entered in [facility]
Allergy/Medication List:
Allergies
Allergy/AdvReac Type Severity Reaction Status Date / Time
nafcillin Allergy Unknown Verified 07/04/25 10:18
Penicillins Allergy Hives/rash, Verified 07/04/25 10:18
tolerates
cefuroxime
pseudoephedrine Allergy high blood Verified 07/04/25 10:18
pressure,
rash
vancomycin Allergy Tremor, Verified 07/04/25 10:18
rigidity,
rigor post
infusion x
2
occurrences
Home Medications
atorvastatin 40 mg tablet 40 mg PO QPM ##30 02/20/18
furosemide 20 mg tablet 20 mg PO DAILY Fluid retention/Swelling 09/27/19
polyethylene glycol 3350 17 gram oral powder packet (ClearLax) 17 gm PO DAILYPRN PRN constipation 11/29/19
metoprolol succinate 50 mg tablet,extended release 24 hr 50 mg PO QPM Heart disease/condition 08/04/20
acetaminophen 500 mg tablet (Tylenol Extra Strength) 500 mg PO Q6HPRN PRN mild pain 06/24/25
magnesium oxide 600 mg PO DAILY Supplement 06/24/25
pilocarpine HCl 1 % eye drops 1 drp BOTH EYES BID Eye Condition 06/24/25
rivastigmine tartrate 3 mg capsule 3 mg PO BID Cognitive deficits 06/24/25
meclizine 12.5 mg tablet 25 mg PO Q8HPRN PRN vertigo 07/04/25
pantoprazole 40 mg tablet,delayed release 40 mg PO BID stress ulcer ppx #30 tabs 07/08/25
Review of Systems
-
A 12 point ROS was completed and negative except as noted: Yes
Physical Exam
Vital Signs
Vital Signs
Temp Pulse Resp BP Pulse Ox
98.4 F 84 16 118/64 96
07/19/25 10:55 07/19/25 11:15 07/19/25 11:15 07/19/25 11:00 07/19/25 11:15
Physical Exam
General: Well Developed, Well Nourished and No Apparent Distress
HEENT: NormoCephalic, Moist mucous membranes and Atraumatic
Respiratory: Clear
Cardiac: S1/S2 and Regular Rhythm; No Murmur or Rub
GI: Soft, Non Tender, Non Distended and Normal Bowel Sounds; No Organomegaly
Rectal: Deferred by Provider
Musculoskeletal: No Clubbing, No Cyanosis and No Edema
Skin: No Rash
Neuro: Nonfocal/grossly intact
Laboratory Results
-
07/19/25 08:53
07/19/25 08:02
Laboratory Results
Total Bilirubin 1.3 mg/dl (0.2-1.3) 07/19/25 08:02
AST 22 U/L (17-59) 07/19/25 08:02
ALT 28 U/L (0-50) 07/19/25 08:02
Alkaline Phosphatase 46 U/L (38-126) 07/19/25 08:02
Data Reviewed
-
Diagnostic Radiology: Report Reviewed by me
Lab Data: Labs Reviewed by me and Discussed with Patient
Impression/Plan
-
IMPRESSION:
84M with MDS, PAF, CAD, CHF, HTN, Alzheimer's disease presenting with fall and weakness, found to have acute on chronic blood loss anemia.
PLAN:
# Recurrent acute on chronic blood loss anemia in setting of MDS
-Hemoglobin 6.6
- 2 units blood transfusion
In setting of thrombocytopenia
- EGD recently negative
Monitor repeat H&H and transfuse if hemoglobin less than 7
# Persistent thrombocytopenia
#MDS
MDS with excess blast was diagnosed last admission from bone marrow biopsy
Follows with Dr. Hutchinson outpatient. Will notify oncology that he is here.
Monitor platelets and if needs transfusion will need washed platelets
#MIKAEL
Creatinine elevated
Monitor after NS bolus given in ED and blood transfusions
Check UA and lytes
#Pain in left foot
Foot is tender to palpation
X-ray 07/19 shows no fracture, but mild to moderate diffuse soft tissue swelling
Known Griffin's esophagus
PPI
Paroxysmal atrial fibrillation
Rate controlled on metoprolol
CAD status post CABG
Combined systolic/diastolic CHF/ ischemic cardiomyopathy
-Hold Lasix given some low blood pressures
History of mitral valve replacement
Hyperlipidemia
- Continue statin
Alzheimer's disease
- Continue rivastigmine
Obstructive sleep apnea
History of thoracic aneurysm of ascending aorta
History of subarachnoid bleeding/TIA
History of cerebral aneurysm status post clip
History of colon polyps
Full code
DVT prophylaxis�SCDs
--- NOTE | 2025-07-19 12:49 | PHANOTE ---
med rec tech: pt is very confused, but said he has been using his most recent discharge paperwork to try and figure out what he is taking.
--- NOTE | 2025-07-19 13:24 | CM ---
CM reviewed chart. Pt lives with his , 1 story home with attic and basement, [address].
Independent in ADLs, personal care and ambulation at baseline.
[facility] past, unsure of facility
PCP: Rambo Mcdowell
Pharmacy: [facility] [id number], [place]
Anticipate discharge home with Dor[facility], ELSY will continue to follow.
--- NOTE | 2025-07-19 16:00 | PTCARENOTE ---
Received pt from ED s/p 1st unit PRBC. 2nd unit PRBC started and transfuing at this time. Full admission and assessment as documented.
--- NOTE | 2025-07-19 18:30 | PTCARENOTE ---
Pt's HR irregular and 120's. notified. EKG obtained, AFw/ RVR. Placed on tele. Med rec completed. to place pt's home meds in. Pt asymptomatic.
[2025-07-19 20:01] LABS: Hematocrit 25.4 % (39.0-52.0); Hemoglobin 8.7 g/dL (13.0-18.0)
[2025-07-19] MEDS: PROTONIX 40 MG PO (20:06)
[2025-07-19] MEDS: TOPROL XL 50 MG PO (20:06)
[2025-07-19] MEDS: EXELON 3 MG PO (20:07)
[2025-07-19] MEDS: EYE BOTH EYES (20:07)
[2025-07-19] MEDS: LIPITOR 40 MG PO (20:07)
[2025-07-19] MEDS: ISOPTO CARPINE BOTH EYES (20:07)
[2025-07-19 20:13] LABS: Urine Character Clear (Clear)
[2025-07-19 20:20] LABS: Urine Red Blood Cell 0-2 /HPF (0-2); Urine White Cell 0-2 /HPF (0-5)
[2025-07-20] VITALS (8 sets, daily range): BP systolic 101–128; BP diastolic 57–75; PULSE 76; BMI 25.5
[2025-07-20 06:37] LABS: Hematocrit 23.6 % (39.0-52.0); Hemoglobin 8.0 g/dL (13.0-18.0); Mean Corp Hgb Conc. 33.9 g/dL (33.0-37.0); Mean Corpuscular Volume 85.5 fL (80.0-94.0); Platelet Count 25 10^3/uL (130-400); Red Cell Dist. Width 22.2 % (11.5-14.5)
[2025-07-20 06:44] LABS: Blood Urea Nitrogen 28 mg/dl (9-20); Calcium 8.2 mg/dl (8.4-10.2); Carbon Dioxide 26 mmol/L (22-30); Chloride 111 mmol/L (98-107); Estimated Creatinine Clearance 38 ml/min; Glucose 109 mg/dl (70-99); Potassium 4.2 mmol/L (3.5-5.1); Sodium 141 mmol/L (135-145); eGFR 54.17
--- NOTE | 2025-07-20 07:50 | W.PN.HOSP.TC ---
Today's Communication/Plan
-
monitor h/h
PT/OT eval
cxr
LLE dopplers
Assessment / Plan
Assessment / Plan
84M with MDS, PAF, CAD, CHF, HTN, Alzheimer's disease presenting with fall and weakness, found to have acute on chronic blood loss anemia.
PLAN:
Recurrent acute on chronic blood loss anemia in setting of MDS
-Hemoglobin 6.6
- 2 units blood transfusion
improved to 8
In setting of thrombocytopenia
- EGD recently negative
Monitor repeat H&H and transfuse if hemoglobin less than 7
Persistent thrombocytopenia
MDS
MDS with excess blast was diagnosed last admission from bone marrow biopsy
Follows with Dr. Hutchinson outpatient. have notified oncology that he is here. He just started tx this week with vidaza/luspatercept and is due back in office Monday to complete cycle but since he is admitted this will be adjusted.
Monitor platelets and if needs transfusion will need washed platelets due to history of transfusion reaction last admission.
MIKAEL - improved
Creatinine elevated
improved to 1.3 after NS bolus given in ED and blood transfusions
Checked UA and lytes
Pain in left foot
Foot is tender to palpation
X-ray 07/19 shows no fracture, but mild to moderate diffuse soft tissue swelling
has LE edema will check dopplers and continue lasix
Cough
as outpt was on moxifloxacin for a week course for crackles heard on exam and has 3 days left. held for now as no e/o infection
check CXR to r/o PNA
Known Griffin's esophagus
PPI
Afib with RVR
pt had HR to low 100s on admission, EKG performed, pt was asymptomatic. Placed on tele
h/o Paroxysmal atrial fibrillation
Rate controlled on metoprolol. Not on eliquis due to anemia/severe thrombocytopenia and risk of GI bleed.
CAD s/p CABG
Combined systolic/diastolic CHF/ ischemic cardiomyopathy
home lasix
Continue statin, BB
History of mitral valve replacement
Alzheimer's disease
- Continue rivastigmine
Obstructive sleep apnea
nightly CPAP
History of thoracic aneurysm of ascending aorta
History of subarachnoid bleeding/TIA
History of cerebral aneurysm status post clip
History of colon polyps
Deconditioning/weakness
PT/OT eval
possible rehab placement?
Full code
DVT prophylaxis�SCDs
Anticipated Discharge: 24 - 48 hours
Subjective/Interval History
-
Date of Service: July 20, 2025
Pt feels weak. Still with L foot swelling, pain is a little better. No dizziness or lightheadedness. at bedside.
Objective Data
-
Labs:
Laboratory Results
07/19/25 07/19/25 07/20/25
14:00 19:43 05:42
WBC 2.0 L*
Hgb Cancelled 8.7 L D 8.0 L
Hct Cancelled 25.4 L
Plt Count
Sodium
Potassium
Chloride
Carbon Dioxide
BUN
Creatinine
Glucose
Calcium
07/20/25 07/20/25 07/20/25
05:42 05:42 11:45
WBC
Hgb Cancelled Pending
Hct 23.6 L Cancelled Pending
Plt Count 25 L* D
Sodium 141
Potassium 4.2
Chloride 111 H
Carbon Dioxide 26
BUN 28 H
Creatinine 1.3
Glucose 109 H
Calcium 8.2 L
Vital Signs:
Vital Signs
Temp Pulse Resp BP Pulse Ox
99.8 F 83 18 101/61 95
07/20/25 03:21 07/20/25 03:21 07/20/25 03:21 07/20/25 03:21 07/20/25 03:21
I&O
07/19/25 07/20/25 07/21/25
06:59 06:59 06:59
Intake Total 1100 / 1100
Output Total 900 / 900
Balance 200 / 200
Review of Systems
-
All other systems: Reviewed and negative
Physical Exam
-
General: No Apparent Distress
HEENT: Moist Mucous Membranes, Anicteric and PERRLA
Respiratory: Clear to Auscultation and Rales; Negative Wheezes or Rhonchi
Cardiac: Regular Rhythm and S1/S2; Negative Murmur, Rub or Gallop
GI: Soft, Nontender, Nondistended and Normal Bowel Sounds
Musculoskeletal: Edema, Right Lower Extrem, Edema, Left Lower Extrem and Other (left foot nontender)
Skin: Warm and Dry; Negative Rash, Ulcers or Lesions
Neuro: Awake and AO x 3
Hematologic / Lymphatic: No Lymphadenopathy
Psych: Calm
Data Reviewed
-
Diagnostic Radiology: Report Reviewed by me, Discussed with Patient and Discussed with Family
Labs: Labs Reviewed by me, Discussed with Patient and Discussed with Family
[2025-07-20] MEDS: PROTONIX 40 MG PO ×2 (09:04→20:17)
[2025-07-20] MEDS: LASIX 20 MG PO (09:04)
[2025-07-20] MEDS: MAGNESIUM OXIDE 600 MG PO (09:04)
[2025-07-20] MEDS: EXELON 3 MG PO ×2 (09:05→20:17)
[2025-07-20] MEDS: ISOPTO CARPINE BOTH EYES ×2 (09:05→20:17)
[2025-07-20] MEDS: EYE BOTH EYES ×2 (09:05→20:17)
[2025-07-20] MEDS: TYLENOL 650 MG PO (09:51)
[2025-07-20] MEDS: DULCOLAX 10 MG RECTAL (11:08)
[2025-07-20] MEDS: MIRALAX 17 GRAMS PO (11:37)
[2025-07-20 11:55] LABS: Uric Acid 5.8 mg/dl (3.5-8.5)
[2025-07-20 12:04] LABS: Anisocytosis 1+; Hypochromasia 1+; Normal RBC Morphology No; Ovalocytes 1+; Platelets Checked Yes; Total Cells Counted 100
[2025-07-20 12:06] LABS: Absolute Neutrophils -Man Diff 0.6 10^3/uL (1.4-6.5)
--- NOTE | 2025-07-20 16:26 | CM ---
Reviewed the chart notes and spoke with the patient's spouse at the bedside. Reviewed recommendation of PT for SNF. Spouse requested referral be sent to [facility]. Referral with [facility] sent via [facility]. CM continues to be available to patient/family
and is monitoring medical plan for needs at discharge.
Plan: Discharge to SNF/rehab. No precert required.
[2025-07-20] MEDS: TOPROL XL 50 MG PO (17:34)
[2025-07-20] MEDS: LIPITOR 40 MG PO (17:37)
--- NOTE | 2025-07-20 18:37 | PTCARENOTE ---
Patient with afib with RVR episode lasting approx. 5 minutes. Patient asymptomatic and unaware. Cross coverage MD notified. Heart rate then went back to 80's to 90's. No new orders at this time. Continues on tele monitor.
[2025-07-21 03:10] VITALS: BP 114/62
[2025-07-21 05:19] VITALS: BMI 25.4
[2025-07-21 07:26] VITALS: BP 113/61
[2025-07-21 08:26] VITALS: BP 113/61
[2025-07-21] MEDS: EYE BOTH EYES (09:47)
[2025-07-21] MEDS: TYLENOL 650 MG PO (09:47)
[2025-07-21] MEDS: ISOPTO CARPINE BOTH EYES (09:47)
[2025-07-21] MEDS: MAGNESIUM OXIDE 600 MG PO (09:48)
[2025-07-21] MEDS: LASIX 20 MG PO (09:48)
[2025-07-21] MEDS: EXELON 3 MG PO (09:49)
[2025-07-21] MEDS: PROTONIX 40 MG PO (09:49)
[2025-07-21 11:20] VITALS: BP 112/59
--- NOTE | 2025-07-21 12:03 | W.PN.HOSP.TC ---
Addendum entered and electronically signed by Brittany Rodriguez MD 07/22/25 10:55:
left buttock DTI pressure injury and stage 1 right buttock pressure injury
Original Note:
Today's Communication/Plan
-
await onc input
follow counts
Assessment / Plan
Assessment / Plan
Pt is an 84 year old male
Acute on chronic symptomatic blood loss anemia likely secondary to mucosal bleeding (Recently admitted for the same etiology, s/p EGD done 06/26/2025 without any significant findings throughout the examined upper GI tract to account for bleeding
episodes. At that time GI suspected oozing in the setting of severe thrombocytopenia and anticoagulation)--platelet count dropped again--no need for repeat scopes--s/p pRBC x 2 this admission (had platelet transfusion reaction last and most recent
admission)--cont PPI and stopping Eliquis--needs washed platelets if transfusing them--pt may benefit from standing outpt transfusions rather than repeated hospital stays
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
Paroxysmal atrial fibrillation--rate controlled--cont toprol--holding eliquis likely indefinitely
MIKAEL--resolved and back to baseline after transfusion
CAD s/p CABG x 1/HFpEF with preserved ejection fraction of 60 to 65%--Continue Lasix 20 mg daily
Essential hypertension--Continue metoprolol
History of mitral valve replacement
Alzheimer's disease--Continue rivastigmine
Obstructive sleep apnea--Nightly CPAP
History of thoracic aneurysm of ascending aorta
History of subarachnoid bleeding/TIA
History of cerebral aneurysm status post clip
History of colon polyps
Known Griffin's esophagus
CODE STATUS-- DNR
DVT prophylaxis�SCDs
therapy rec SNF again!
Anticipated Discharge: > 48 hours
Subjective/Interval History
-
Date of Service: July 21, 2025
pt seems SOB to me but he denies
Objective Data
-
Vital Signs:
max temp for 24 hours
07/20/25
23:02
Temp 98.5 F
Vital Signs
Temp Pulse Resp BP Pulse Ox
98.0 F 74 16 112/59 96
07/21/25 11:20 07/21/25 11:20 07/21/25 11:20 07/21/25 11:20 07/21/25 11:20
I&O
07/20/25 07/21/25 07/22/25
06:59 06:59 06:59
Intake Total 1100 / 1100 1020 / 1020
Output Total 900 / 900 825 / 825 150 / 150
Balance 200 / 200 195 / 195 -150 / -150
Review of Systems
-
All other systems: Reviewed and negative
Physical Exam
-
General: Well Developed, Well Nourished and No Apparent Distress
HEENT: Normocephalic and Atraumatic
Respiratory: Clear to Auscultation; Negative Wheezes or Rhonchi
Cardiac: Regular Rhythm, S1/S2 and Murmur
GI: Soft, Nontender, Nondistended and Normal Bowel Sounds
Musculoskeletal: No Clubbing, No Cyanosis and No Edema
Neuro: Awake and Alert
Psych: Calm
--- NOTE | 2025-07-21 12:14 | CM ---
Patient seen at bedside in [address] [place] [address]. Patient plan is for discharge home, per chart review patient referred to SNF; [facility] and accepted pending bed availability. Patient was current with [facility] and has had 2 previous episodes with patient care, they are
willing to accept if needed. CM to follow with physician, pending patient acceptance of SNF and medical treatment plan. CM will continue to follow for discharge planning needs.
Plan; SNF; [facility] vs home with VN
--- NOTE | 2025-07-21 14:24 | CON.ONC ---
Consultation
-
Date Consultation Requested: 07/21/25
Date Consultation Performed: 07/21/25
Requesting Provider: Dr. Rodriguez
Performing Provider: Dr. Diaz
Reason for Consultation: Myelodysplastic Syndrome on Vidaza
Impression
Impression
This is an 84 y/o male with pmhx of myelodysplastic syndrome followed by Dr. Hutchinson at [facility] who suffered a mechanical fall on 07/19/2025 and was found to have acute on chronic anemia in the ED requiring transfusion of 2 units of
pRBCs.
Plan
Plan
Myelodysplastic Syndrome with Excess Blasts and Pancytopenia
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
-Contacted office to coordinate care for patient to receive another dose of Vidaza tomorrow in outpatient setting following discharge
-Will coordinate discharge with primary care team
-Patient to follow with Dr. Hutchinson outpatient for management
-Will monitor
Acute on Chronic Blood Loss Anemia
-Patient with recent admission for similar etiology due to severe thrombocytopenia and anticoagulation
-S/p 2 units pRBCs this hospitalization
-Most recent hemoglobin 8.0
-No indication for transfusion at this time
-Will monitor
Paroxysmal atrial fibrillation
-Currently with rate control
-Continue to hold eliquis due to anemia from mucosal bleeding
-Will monitor
Heart Failure with preserved ejection fraction
-Most recent Echo 04/2024 notes EF of 60-65%
-Continue Lasix 20mg daily as per primary care team
-Will monitor
Essential Hypertension
-Continue metoprolol as per primary care team
-Will monitor
Obstructive Sleep Apnea
-Continue CPAP at night
-Will monitor
Patient History
History of Present Illness
This is an 84 y/o male with pmhx of MDS who follows with Dr. Hutchinson at [facility]. He was recently hospitalized with acute on chronic anemia in May-June of this year due to mucosal bleeding from severe thrombocytopenia and
anticoagulation. During this hospitalization on 06/25/2025 a bone marrow biopsy was performed which revealed mild dysplastic syndrome with increased blasts of 9.5% consistent with MDS-EB2, complex cytogenics, and FISH analysis detecting evidence of
p53. During his recent outpatient office visit on 07/10/2025, he was started on Luspatercept and Vidaza. He had received 3 of 5 days when he reports falling on 07/19/2025. He states that his had moved their bed, and that a section of the floor
underneath it had been slippery, which caused him to lose his balance and fall. He did not have any dizziness or syncope associated with this mechanical fall. He was found to be anemic in the ED and was given 2 units of pRBCs.
Today he is doing well. He is agreeable to discharge and following up outpatient tomorrow to resume Vidaza so he can get another dose in for this cycle. He has no concerns or complaints at this time.
Past-Medical/Surgical History
Myelodysplastic Syndrome with Excess Blasts and Pancytopenia
Acute on Chronic Blood Loss Anemia
Paroxysmal Atrial Fibrillation
Essential Hypertension
CAD w/ CABG
Heart Failure with preserved EF
Essential Hypertension
Obstructive Sleep Apnea
Patient Medication
�Medication �Instructions �Recorded �Confirmed �Last Taken �Type
atorvastatin 40 mg tablet 40 mg PO QPM ##30 02/20/18 07/19/25 10/17/21 20:30 Rx
furosemide 20 mg tablet 20 mg PO DAILY Fluid 09/27/19 07/19/25 06/24/25 History
retention/Swelling
polyethylene glycol 3350 17 gram 17 gm PO DAILYPRN PRN constipation 11/29/19 07/19/25 06/24/25 History
oral powder packet (ClearLax)
metoprolol succinate 50 mg 50 mg PO QPM Heart 08/04/20 07/19/25 10/17/21 20:30 History
tablet,extended release 24 hr disease/condition
acetaminophen 500 mg tablet 500 mg PO Q6HPRN PRN mild pain 06/24/25 07/19/25 06/24/25 History
(Tylenol Extra Strength)
magnesium oxide 600 mg PO DAILY Supplement 06/24/25 07/19/25 06/24/25 History
pilocarpine HCl 1 % eye drops 1 drp BOTH EYES BID Eye Condition 06/24/25 07/19/25 06/23/25 History
rivastigmine tartrate 3 mg capsule 3 mg PO BID Cognitive deficits 06/24/25 07/19/25 06/24/25 History
meclizine 12.5 mg tablet 25 mg PO Q8HPRN PRN vertigo 07/04/25 07/19/25 3 Days Ago History
~07/01/25
pantoprazole 40 mg tablet,delayed 40 mg PO BID stress ulcer ppx #30 07/08/25 07/19/25 Unknown Rx
release tabs
moxifloxacin 400 mg tablet 400 mg PO DAILY Infection 07/19/25 07/19/25 07/18/25 08:00 History
ondansetron HCl 8 mg tablet 8 mg PO Q8H PRN nausea 07/19/25 07/19/25 07/18/25 22:00 History
Active Medications
Generic Name Dose Route Start Last Admin
Trade Name Freq PRN Reason Stop Dose Admin
Acetaminophen 650 mg 07/19/25 14:24 07/21/25 09:47
Acetaminophen 325 Mg Tablet PO 08/16/25 14:23 650 mg
Q4HPRN PRN Administration
mild pain/DAMON/temp> 100.4F
Atorvastatin Calcium 40 mg 07/19/25 19:00 07/20/25 17:37
Atorvastatin (Lipitor) 40 Mg Tablet PO 08/16/25 18:59 40 mg
QPM AZUL Administration
Bisacodyl 10 mg 07/19/25 14:24 07/20/25 11:08
Bisacodyl 10 Mg Rectal Suppository RECTAL 08/16/25 14:23 10 mg
[id number] PRN Administration
constipation
Furosemide 20 mg 07/20/25 08:00 07/21/25 09:48
Furosemide 20 Mg Tablet PO 08/17/25 07:59 20 mg
DAILY AZUL Administration
Magnesium Oxide 600 mg 07/20/25 08:00 07/21/25 09:48
Magnesium Oxide 400 Mg Tablet PO 08/17/25 07:59 600 mg
DAILY AZUL Administration
Meclizine HCl 25 mg 07/19/25 19:25
Meclizine 25 Mg Tablet PO 08/16/25 19:24
Q8HPRN PRN
vertigo
Metoprolol Succinate 50 mg 07/19/25 19:00 07/20/25 17:34
Metoprolol 50 Mg Extended Release Tablet PO 08/16/25 18:59 50 mg
QPM AZUL Administration
Ondansetron HCl 4 mg 07/19/25 14:24
Ondansetron 4 Mg/2 Ml Vial IV 08/16/25 14:23
Q6HPRN PRN
nausea and vomiting
Ondansetron HCl 8 mg 07/19/25 19:23
Ondansetron 4 Mg Tablet PO 08/16/25 19:22
Q8H PRN
NAUSEA
Pantoprazole Sodium 40 mg 07/19/25 20:00 07/21/25 09:49
Pantoprazole 40 Mg Delayed Release Tablet PO 08/16/25 19:59 40 mg
BID AZUL Administration
Pilocarpine HCl 1 drop 07/19/25 20:00 07/21/25 09:47
Pilocarpine 1% (Ophthalmic Solution) 15 Ml Bottle BOTH EYES 08/16/25 19:59 1 drop
BID AZUL Administration
Polyethylene Glycol 17 grams 07/19/25 14:24 07/20/25 11:37
Polyethylene Glycol Powder 17 Grams Packet PO 08/16/25 14:23 17 grams
DAILYPRN PRN Administration
constipation
Polyethylene Glycol 17 grams 07/19/25 18:34
Polyethylene Glycol Powder 17 Grams Packet PO 08/16/25 18:33
DAILYPRN PRN
constipation
Rivastigmine Tartrate 3 mg 07/19/25 20:00 07/21/25 09:49
Rivastigmine (Exelon) 3 Mg Capsule PO 08/16/25 19:59 3 mg
BID AZUL Administration
Senna/Docusate Sodium 1 tablet 07/19/25 14:24
Docusate W/Senna (Madny-Colace) Tablet PO 08/16/25 14:23
BIDPRN PRN
constipation
Sodium Chloride 0 flush 07/19/25 15:00
Sodium Chloride 0.9% (Flush) Syringe IV 08/16/25 14:59
PER PROTOCOL AZUL
Review of Systems
-
History Source: Patient
Cardiac: Denies Chest Pain
Neuro: Denies Dizzy, Weakness or Lightheadedness
Physical Exam
-
General: Well Developed, Well Nourished, No Apparent Distress and Comfortable
Skin: Warm and Dry
Psych: Calm
Labs
Lab Results
WBC 2.0 10^3/uL (4.8-10.8) L* 07/20/25 05:42
RBC 2.76 10^6/uL (4.70-6.10) L 07/20/25 05:42
Hgb Cancelled 07/20/25 11:45
Hct Cancelled 07/20/25 11:45
MCV 85.5 fL (80.0-94.0) 07/20/25 05:42
MCH 29.0 pg (27.0-31.0) 07/20/25 05:42
MCHC 33.9 g/dL (33.0-37.0) 07/20/25 05:42
RDW 22.2 % (11.5-14.5) H 07/20/25 05:42
Plt Count 25 10^3/uL (130-400) L* D 07/20/25 05:42
MPV Not Reportable 07/20/25 05:42
Abs Immat Gran (auto) Cancelled 07/19/25 08:02
Absolute Neuts (auto) Cancelled 07/19/25 08:02
Absolute Lymphs (auto) Cancelled 07/19/25 08:02
Absolute Monos (auto) Cancelled 07/19/25 08:02
Absolute Eos (auto) Cancelled 07/19/25 08:02
Absolute Basos (auto) Cancelled 07/19/25 08:02
Immature Gran % Cancelled 07/19/25 08:02
Neutrophils % Cancelled 07/19/25 08:02
Lymphocytes % Cancelled 07/19/25 08:02
Monocytes % Cancelled 07/19/25 08:02
Eosinophils % Cancelled 07/19/25 08:02
Basophils % Cancelled 07/19/25 08:02
Creatinine 1.3 mg/dL (0.7-1.3) 07/20/25 05:42
Vital Signs
Vital Signs
Temp Pulse Resp BP Pulse Ox
98.0 F 74 16 112/59 96
07/21/25 11:20 07/21/25 11:20 07/21/25 11:20 07/21/25 11:20 07/21/25 11:20
--- NOTE | 2025-07-21 14:46 | CM ---
Addendum entered by Karol Borges 07/21/25 16:22:
imm form completed and signed form on chart.
Addendum entered by Karol Borges 07/21/25 14:53:
referral sent to [facility] via all scripts.
Original Note:
Patient talked to physician and plan is now for discharge home with [facility] with PT/OT and [facility] Feeder for additional resources. Patient family to transport as patient did not feel that they would be able to afford wheelchair van.
Patient now willing for patient to come home for follow up with oncology medications tomorrow. CM verbally reviewed IMM with patient and patient, will place form in chart following patient signature. CM will continue to follow for
discharge planning needs.
Plan; home with [facility]
[2025-07-21 15:00] VITALS: BP 101/59
[2025-07-21] MEDS: LIPITOR 40 MG PO (17:19)
[2025-07-21] MEDS: TOPROL XL 50 MG PO (17:19)
--- NOTE | 2025-07-21 17:27 | W.DCSUMMARY ---
Discharge Summary
Discharge Data
Date of Admission: 07/19/25
Date of Discharge: 07/21/25
-
Pending Results: No
Hospital Course
Primary care physician : Rambo Mcdowell
Principal Discharge diagnosis : Acute on chronic symptomatic blood loss anemia.
Chronic Discharge diagnosis : Myelodysplastic syndrome with excess blasts along with pancytopenia, paroxysmal atrial fibrillation, acute kidney injury, coronary artery disease status post bypass surgery, essential hypertension, history of mitral
valve replacement, history of Alzheimer's disease, obstructive sleep apnea, history of thoracic aneurysm of the ascending aorta/subarachnoid bleeding/transient ischemic attack/cerebral aneurysm status post clipping
Hospital Course : Patient was an 84-year-old male with known myelodysplastic syndrome diagnosed by biopsy along with pancytopenia and paroxysmal atrial fibrillation on Eliquis among other medical issues. He stated that he presented after a fall.
He was standing and knees feet slipped out from under him on a slippery floor. He denied dizziness, chest pain, vision changes, breathing difficulty, palpitations. He did not hit his head or lose consciousness. He was found to have anemia with a
hemoglobin of 6.6. Blood transfusion was ordered and the patient was admitted.
Problem #1: Acute on chronic symptomatic blood loss anemia. This is a known entity and patient has been admitted 3 times for symptomatic anemia. Patient has low platelet count as a finding of his myelodysplastic syndrome. And it was thought that
he had mucosal bleeding from the low platelets. He did have GI workup a few admissions ago without any significant findings needed. Last admission, patient had a platelet transfusion reaction and would have needed washed platelets. He did receive
2 units of packed red blood cells this admission without any obvious issues. Physical therapy saw the patient and recommended care home for rehab. However, oncology was consulted given his history of myelodysplastic syndrome and he would be
due for his cancer treatment today (which he missed being here) and would like him to have his treatment tomorrow in the office. I did discuss with the patient's the discharge plan from the standpoint. He will be discharged home with plans to
meet in the oncologist office to continue his cancer treatments.
Problem #2: All other medical issues. These include Myelodysplastic syndrome with excess blasts along with pancytopenia, paroxysmal atrial fibrillation, acute kidney injury, coronary artery disease status post bypass surgery, essential
hypertension, history of mitral valve replacement, history of Alzheimer's disease, obstructive sleep apnea, history of thoracic aneurysm of the ascending aorta/subarachnoid bleeding/transient ischemic attack/cerebral aneurysm status post clipping.
These medical issues were stable during his hospitalization. Medications were continued as able.
Patient is stable for discharge home at this time. If there are any questions regarding this dictation or his hospital stay, please do not hesitate to call. Our office number is [phone].
Time for discharge 32 minutes.
Discharge Plan
-
Patient Disposition: Home (Routine Discharge)
Discharge Diagnosis/Procedures: Acute on chronic symptomatic blood loss anemia secondary to presumed mucosal bleeding from myelodysplastic syndrome with excess blasts and pancytopenia, paroxysmal atrial fibrillation, acute kidney injury, coronary
artery disease status post bypass surgery most, essential hypertension, Alzheimer disease, obstructive sleep apnea, history of subarachnoid bleeding with transient ischemic attack, known Griffin's esophagus
Condition: Fair
Diet: As tolerated and Regular
Activity: As tolerated
Driving Restrictions: No driving
Bathing Restrictions: None
Other Services: VN, PT and OT
Referrals:
Rambo Mcdowell MD [Family Provider, Family Practice] - in less than 1 week
Adi Hutchinson MD [Active, Hematology / Oncology] - in one day
Prescriptions:
Continued
furosemide 20 MG tablet
20 mg PO DAILY
polyethylene glycol 3350 [ClearLax] 17 GM powder in packet
17 gm PO DAILYPRN PRN (Reason: constipation)
metoprolol succinate 50 MG tablet extended release 24 hr
50 mg PO QPM
pilocarpine HCl 1 % Drops
1 drp BOTH EYES BID
rivastigmine tartrate 3 mg Capsule
3 mg PO BID
magnesium oxide 200 mg magnesium Tablet
600 mg PO DAILY
meclizine 12.5 mg tablet
25 mg PO Q8HPRN PRN (Reason: vertigo)
pantoprazole 40 mg Tablet,Delayed Release (Dr/Ec)
40 mg PO BID Qty: 30 0RF
ondansetron HCl 8 mg Tablet
8 mg PO Q8H PRN (Reason: nausea)
atorvastatin 40 MG tablet
40 mg PO QPM Qty: 30 0RF
Discontinued
acetaminophen [Tylenol Extra Strength] 500 mg Tablet
500 mg PO Q6HPRN PRN (Reason: mild pain)
moxifloxacin 400 mg Tablet
400 mg PO DAILY
Discharge Orders:
Discharge Patient (As Directed); Ordered 07/21/25
Ordered By: Brittany Rodriguez
Discharge Date and Time
Print Language: POLISH
--- NOTE | 2025-07-22 10:09 | PN.CDI ---
CDI
- -
CDI:
Physician Documentation Request
Admit Date: 07/19/25 13:01
Dear Doctor Tracey,
Please review the following and provide your response in the progress notes.
Clinical Indicators:
Pt admitted with Acute on chronic symptomatic blood loss anemia.
07/19 travel rn in wound panel note left buttock DTI pressure injury and stage 1 right buttock pressure injury.
Physician documentation of the type and location of wounds is required for compliant documentation. Based on the above clinical findings and your assessment, please provide the following in your progress note:
1. Location of the ulcer/wound, including laterality.
2. Type (etiology) of ulcer/wound:
left and right buttock pressure injury POA.
left and right buttock non-pressure injury POA.
Other
Use of terms such as suspected, likely, concern for, or probable (associated with a specific diagnosis that is being evaluated, monitored, or treated as if it exists) are acceptable and can be coded in the inpatient setting, when documented at the
time of discharge.
Thank you,
Celeste Miguel RN, BSN
CDI Specialist
[place] [employer]
Please use your independent medical judgment in providing your response.
*Source: National Pressure Ulcer Advisory Panel (NPUAP)
== END 2025-07-21 18:00 | disposition home health service (06) | DRG 812 ==
LOC: 2 NORTH 13:01
PROVIDERS: Physician Assistant; ADMITTING PHYSICIAN Internal Medicine; ATTENDING PHYSICIAN Internal Medicine; CONSULT PHYSICIAN Internal Medicine Hematology & Oncology; EMERGENCY PHYSICIAN Emergency Medicine; FAMILY PHYSICIAN Family Medicine
PROC: 30233N1 Transfusion of Nonautologous Red Blood Cells into Peripheral Vein, Percutaneous Approach (ICD-10-PCS; 2025-07-19)
DX: D62 Acute posthemorrhagic anemia (principal); N17.9 Acute kidney failure, unspecified; I50.32 Chronic diastolic (congestive) heart failure; D61.818 Other pancytopenia; G89.29 Other chronic pain; M25.511 Pain in right shoulder; D46.9 Myelodysplastic syndrome, unspecified; I11.0 Hypertensive heart disease with heart failure; I48.0 Paroxysmal atrial fibrillation; E78.00 Pure hypercholesterolemia, unspecified; I25.10 Atherosclerotic heart disease of native coronary artery without angina pectoris; K21.9 Gastro-esophageal reflux disease without esophagitis; M19.90 Unspecified osteoarthritis, unspecified site; I71.21 Aneurysm of the ascending aorta, without rupture; M79.672 Pain in left foot; F02.80 Dementia in other diseases classified elsewhere, unspecified severity, without behavioral disturbance, psychotic disturbance, mood disturbance, and anxiety; G30.9 Alzheimer's disease, unspecified; I25.5 Ischemic cardiomyopathy; K22.70 Barrett's esophagus without dysplasia; M75.92 Shoulder lesion, unspecified, left shoulder; L89.326 Pressure-induced deep tissue damage of left buttock; L89.311 Pressure ulcer of right buttock, stage 1; G47.33 Obstructive sleep apnea (adult) (pediatric); W06.XXXA Fall from bed, initial encounter; Y93.89 Activity, other specified; Y92.003 Bedroom of unspecified non-institutional (private) residence as the place of occurrence of the external cause; Z66 Do not resuscitate; Z95.1 Presence of aortocoronary bypass graft; Z95.5 Presence of coronary angioplasty implant and graft; Z95.3 Presence of xenogenic heart valve; Z90.49 Acquired absence of other specified parts of digestive tract; Z86.73 Personal history of transient ischemic attack (TIA), and cerebral infarction without residual deficits; Z85.46 Personal history of malignant neoplasm of prostate; Z88.1 Allergy status to other antibiotic agents; Z88.0 Allergy status to penicillin; Z88.8 Allergy status to other drugs, medicaments and biological substances; Z86.0100 Personal history of colon polyps, unspecified
CPT/HCPCS: 71046; 73630; 80048; 80053; 81003; 81015; 82570; 83930; 83935; 84300; 84550; 85014; 85018; 85025; 86850; 86900; 86901; 86920; 93005; 93971; 96360; 97162; 97166; 99285; P9016

== ENCOUNTER 2025-08-18 16:48 | Emergency (ER) | payer MEDICARE, OTHER, SELFPAY ==
[2025-08-18] VITALS (15 sets, daily range): BP systolic 93–129; BP diastolic 27–64; BMI 26.7
[2025-08-18 17:39] LABS: ALT (SGPT) 10 U/L (0-50); AST (SGOT) 11 U/L (17-59); Albumin 3.7 g/dl (3.5-5.0); Alkaline Phosphatase 87 U/L (38-126); Blood Urea Nitrogen 22 mg/dl (9-20); Calcium 8.3 mg/dl (8.4-10.2); Carbon Dioxide 30 mmol/L (22-30); Chloride 106 mmol/L (98-107); Glucose 110 mg/dl (70-99); Potassium 3.8 mmol/L (3.5-5.1); Sodium 138 mmol/L (135-145); Total Protein 6.2 g/dl (6.3-8.2); eGFR > 60.00
[2025-08-18 17:53] LABS: Hematocrit 21.3 % (39.0-52.0); Hemoglobin 6.9 g/dL (13.0-18.0); Mean Corp Hgb Conc. 32.4 g/dL (33.0-37.0); Mean Corpuscular Volume 91.0 fL (80.0-94.0); Platelet Count 123 10^3/uL (130-400); Red Cell Dist. Width 19.9 % (11.5-14.5)
[2025-08-18 19:07] LABS: Platelets Checked Yes
[2025-08-18 19:09] LABS: Anisocytosis 1+; Hypochromasia 1+; Normal RBC Morphology No; Poikilocytosis 1+; Total Cells Counted 100
[2025-08-18 19:11] LABS: Absolute Neutrophils -Man Diff 0.1 10^3/uL (1.4-6.5)
--- NOTE | 2025-08-18 19:44 | ED.GENMED ---
History of Present Illness
General
Chief Complaint: Blood Pressure Problem
Source: patient and spouse
Time Seen by Provider: 08/18/25 19:18
History of Present Illness
History of Present Illness:
84-year-old male sent to the emergency room from home after visiting nurse noted his blood pressure to be 'low'. Patient has a history of myelodysplastic syndrome with excessive blast. He has required blood transfusions frequently. Last
transfusion was about 2 weeks ago. Patient denies any fever. He denies any nausea, vomiting. 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 He is unaware what his baseline counts are
Past History
Past History
ED Past Medical History: Arrthythmia (Atrial fibrillation), CAD, CVA (TIA, cerebral aneurysm subarachnoid bleed), GERD, HTN, Hypercholesterolemia, Valvular disease (Aortic regurgitation), Other (Clipped cerebral aneurysm . Osteoarthritis/tendinitis
left shoulder.) and Other (Obstructive sleep apnea/BiPAP)
ED Past Surgical History: Appendectomy, Cardiac (Mitral valve repair in 1994, CABG times 12/15/1994, PTCA with stent 2004, August 2017, bovine aortic valve replacement, CABG redo), Cholecystectomy and Other (Left inguinal hernia repair, TURP)
Patient has exhibited threatening behavior?: No
PSI?: No
Social History
Tobacco: Non-smoker
Alcohol: None
Drug: None
Personal:
Living: with family
Employment: Retired
Family History
Family History: Hypertension
Phy Exam
Physical Exam
Physical Exam:
General: Awake, Alert, Oriented X3. No acute distress.
Vitals: unremarkable
Head: Atraumatic
Eyes: Pupils equal, EOMI
Throat: Airway intact, no exudates
Neck: Trachea midline
Lungs: Clear and equal b/l
Heart: Regular rate, no murmurs
Abd: Soft, Nontender, No pulsatile mass
Neuro: Nonfocal
Skin: Warm, dry, no rash
Extremities: pulses equal b/l, no edema
Course
Orders/Labs/Results
Orders:
Orders
08/18/25 17:01
Complete Blood Count/With Diff Urgent
Comprehensive Metabolic Panel Urgent
Manual Differential Urgent
08/18/25 19:37
* Blood Bank Products Urgent
Blood Bank Products: *Packed RBC Leuko(PRBC's)
Quantity: 1
Transfuse Today: Yes
Reason: Anemia
08/18/25 19:54
Type+Screen Urgent
Abnormal Lab Results
08/18/25 08/18/25
17:01 19:54
WBC 0.8 L* 10^3/uL
(4.8-10.8)
RBC 2.34 L 10^6/uL
(4.70-6.10)
Hgb 6.9 L* g/dL
(13.0-18.0)
Hct 21.3 L %
(39.0-52.0)
MCHC 32.4 L g/dL
(33.0-37.0)
RDW 19.9 H %
(11.5-14.5)
Plt Count 123 L 10^3/uL
(130-400)
Abs Neuts (Manual) 0.1 L* 10^3/uL
(1.4-6.5)
Segmented Neutrophils 15 L %
(42-75)
Lymphocytes (Manual) 75 H %
(20-51)
BUN 22 H mg/dl
(9-20)
Glucose 110 H mg/dl
(70-99)
Calcium 8.3 L mg/dl
(8.4-10.2)
Total Bilirubin 1.9 H mg/dl
(0.2-1.3)
AST 11 L U/L
(17-59)
Total Protein 6.2 L g/dl
(6.3-8.2)
Crossmatch IS Only See Detail
08/18/25 17:01
08/18/25 17:01
Vital Signs
Initial and Last Documented VS:
Initial Vital Signs
Temp Pulse Resp BP Pulse Ox
98.2 F 78 18 107/56 98
08/18/25 16:51 08/18/25 16:51 08/18/25 16:51 08/18/25 16:51 08/18/25 16:51
Last Documented Vital Signs
Temp Pulse Resp BP Pulse Ox
98.2 F 70 21 103/60 95
08/18/25 16:51 08/18/25 19:36 08/18/25 22:15 08/18/25 22:15 08/18/25 22:15
*Pulse Oximetry
SaO2: 97
Oxygen Mode of Delivery: Room air
ED Attending Note
-
Portions of this chart may have been created with voice recognition software.� Occasional wrong word or��sound alike� substitutions may have occurred due to the inherent limitations of voice recognition software.
Discharge Plan
Departure
Condition: Good
Discharge Problem:
Symptomatic anemia, MDS (myelodysplastic syndrome)
Instructions: Anemia in adults, possibly from low iron - ED (DC), Myelodysplastic syndromes (MDS)
Prescriptions:
No Action
furosemide 20 MG tablet
20 mg PO DAILY
polyethylene glycol 3350 [ClearLax] 17 GM powder in packet
17 gm PO DAILYPRN PRN (Reason: constipation)
metoprolol succinate 50 MG tablet extended release 24 hr
50 mg PO QPM
pilocarpine HCl 1 % Drops
1 drp BOTH EYES BID
rivastigmine tartrate 3 mg Capsule
3 mg PO BID
magnesium oxide 200 mg magnesium Tablet
600 mg PO DAILY
meclizine 12.5 mg tablet
25 mg PO Q8HPRN PRN (Reason: vertigo)
pantoprazole 40 mg Tablet,Delayed Release (Dr/Ec)
40 mg PO BID Qty: 30 0RF
ondansetron HCl 8 mg Tablet
8 mg PO Q8HPRN PRN (Reason: nausea)
acetaminophen [Tylenol Extra Strength] 500 mg Tablet
1,000 mg PO QIDPRN PRN (Reason: mild pain)
docusate sodium [Colace] 100 mg Capsule
100 mg PO DAILYPRN PRN (Reason: constipation)
atorvastatin 40 MG tablet
40 mg PO DAILY
Referrals:
Rambo Mcdowell MD [Family Provider, Family Practice]
Interventions
Interventions:
*Risk Screen - Suicide Last Done: 08/18/25 16:55
*General Assessment Last Done: 08/18/25 16:55
*Neglect/Abuse Screening Last Done: 08/18/25 16:55
*ED COVID-19 Vaccine History Last Done: 08/18/25 16:55
ED- Cardiac Assessment Last Done: 08/18/25 19:37
ED- Neurological Assessment Last Done: 08/18/25 19:37
ED- Pulmonary Assessment Last Done: 08/18/25 19:37
Discharge Date and Time
Print Language: BULGARIAN
[2025-08-19] VITALS: BP 98/56
[2025-08-19 00:30] VITALS: BP 106/54
[2025-08-19 00:42] VITALS: BP 121/78
[2025-08-19 01:04] VITALS: BP 131/65
== END 2025-08-19 01:35 | disposition home or self-care (01) ==
LOC: EMR 16:48
PROVIDERS: Emergency Medicine; EMERGENCY PHYSICIAN Emergency Medicine; FAMILY PHYSICIAN Family Medicine
DX: D46.9 Myelodysplastic syndrome, unspecified (principal); E78.00 Pure hypercholesterolemia, unspecified; G47.33 Obstructive sleep apnea (adult) (pediatric); I10 Essential (primary) hypertension; I25.10 Atherosclerotic heart disease of native coronary artery without angina pectoris; I48.91 Unspecified atrial fibrillation; Z86.79 Personal history of other diseases of the circulatory system; Z90.79 Acquired absence of other genital organ(s); Z95.1 Presence of aortocoronary bypass graft; I35.1 Nonrheumatic aortic (valve) insufficiency; Z95.3 Presence of xenogenic heart valve; Z86.73 Personal history of transient ischemic attack (TIA), and cerebral infarction without residual deficits; Z90.49 Acquired absence of other specified parts of digestive tract; Z95.5 Presence of coronary angioplasty implant and graft
CPT/HCPCS: 99283; 80053; 85025; 86850; 86900; 86901; 86920; P9016

== ENCOUNTER 2025-08-22 17:40 | Emergency (ER) | payer MEDICARE, OTHER, SELFPAY ==
[2025-08-22 17:58] VITALS: BP 135/59
[2025-08-22 21:51] VITALS: BP 139/58
--- NOTE | 2025-08-22 22:11 | ED.GENMED ---
History of Present Illness
General
Chief Complaint: DVT/Possible Blood Clot
Source: patient
Time Seen by Provider: 08/22/25 22:02
History of Present Illness
History of Present Illness:
This patient is an 84-year-old male who states his he has had swelling in his legs, mild, for a very long period of time. He was seen by his doctor today, and it was noted that his left leg looked larger than his right leg and he was referred to
the emergency department to rule out DVT. Of note, patient does state that his legs feel discomfort in the calf area bilaterally. This is a relatively new finding, and mild in intensity. He denies weakness, difficulty walking, rash, chest pain,
dyspnea, fever, chills, recent trauma, bruising, or other complaints.
Past History
Past History
ED Past Medical History: Arrthythmia (Atrial fibrillation), CAD, CVA (TIA, cerebral aneurysm subarachnoid bleed), GERD, HTN, Hypercholesterolemia, Valvular disease (Aortic regurgitation), Other (Clipped cerebral aneurysm . Osteoarthritis/tendinitis
left shoulder.) and Other (Obstructive sleep apnea/BiPAP)
ED Past Surgical History: Appendectomy, Cardiac (Mitral valve repair in 1994, CABG times 12/15/1994, PTCA with stent 2004, August 2017, bovine aortic valve replacement, CABG redo), Cholecystectomy and Other (Left inguinal hernia repair, TURP)
Patient has exhibited threatening behavior?: No
PSI?: No
Social History
Tobacco: Non-smoker
Alcohol: None
Drug: None
Personal:
Living: with family
Employment: Retired
Family History
Family History: Hypertension
Phy Exam
Physical Exam
Physical Exam:
GENERAL: Alert , in no apparent distress
EYE: pupils equal and reactive
NECK: Supple, no significant adenopathy.
ENT: o/p clr, mmm.
CARDIAC: Regular rate and rhythm .
LUNGS: Clear breath sounds bilaterally, no acute respiratory distress, no wheezes/rales/rhonchi
ABDOMEN: Soft, without focal tenderness, no r/g, no cvat
NEUROLOGICAL: Alert and oriented, no focal neuro deficits
SKIN: Warm and dry, skin intact.
MUSCULOSKELETAL: Well-perfused, 2+ DP pulses bilaterally, cap refill within normal limits. Very mild nonpitting edema noted bilateral lower extremities, left slightly greater than right. No associated Homans' sign, tenderness to palpation, rash,
bruising, or other abnormalities. Full range of motion of lower extremities bilaterally without limitation or pain
PSYCH: Normal and appropriate interaction.
Course
Orders/Labs/Results
Orders:
Orders
08/22/25 18:01
US Periph Venous LOWER Ext Phillip Urgent
Reason For Exam: pain to lower calf
08/22/25 21:06
Complete Blood Count/With Diff Urgent
Comprehensive Metabolic Panel Urgent
Vital Signs
Initial and Last Documented VS:
Initial Vital Signs
Temp Pulse Resp BP Pulse Ox
98.0 F 65 16 135/59 98
08/22/25 17:58 08/22/25 17:58 08/22/25 17:58 08/22/25 17:58 08/22/25 17:58
Last Documented Vital Signs
Temp Pulse Resp BP Pulse Ox
98.0 F 70 22 139/58 98
08/22/25 17:58 08/22/25 21:51 08/22/25 21:51 08/22/25 21:51 08/22/25 21:51
*Pulse Oximetry
SaO2: 98
Oxygen Mode of Delivery: Room air
Patient hypoxic: no
*Critical Care Note
Total Time (30-74mins, 75-104mins- exclusive of procedures): Not Applicable
Update Note
Update Note:
Patient presents to the Emergency Department with leg swelling and pain
Number and Complexity of Problems Addressed at the Encounter
� Chronic conditions affecting care:
� Acute Exacerbation and/or Progression of Chronic Illness:
� Differential Diagnosis includes: But not limited to DVT, Damian's cyst, muscle strain, venous insufficiency, rhabdomyolysis, etc. etc.
Amount and/or Complexity of Data to be Reviewed and Analyzed
� I performed an independent evaluation of and my interpretation is:
EKG:
CT:
Xrays:
Laboratory Studies:
Other: Ultrasound report reviewed no sonographic evidence for lower extremity venous thrombosis. There is an incidental left Damian's cyst noted.
� Review of other/old records reveals:
� Clinical information was obtained by an independent historian:
� Prescriptions/Medications Considered but not given:
� Further testing considered but not performed:
Risk of Complications and/or Morbidity or Mortality of Patient Management
� Social determinants of health affecting care:
� Discussion with other providers (PCP, Hospitalists, Consultants, etc):
� Escalation of care including admission/observation vs risk of discharge considered: Ultrasound consistent with Damian's cyst, otherwise no abnormalities noted. It is noted that patient is on a statin however overall I think
extremely unlikely that this picture is consistent with rhabdomyolysis. His urine has been clear, he does not have tenderness to palpation, no muscle pain noted elsewhere, etc. Labs have not yet been drawn and patient declines a CPK test today.
Discussed with patient portance of follow-up and reasons return to the ER.
ED Attending Note
-
Portions of this chart may have been created with voice recognition software.� Occasional wrong word or��sound alike� substitutions may have occurred due to the inherent limitations of voice recognition software.
Discharge Plan
Departure
Patient Disposition: Home (Routine Discharge)
Date of Disposition: 08/22/25
Time of Disposition: 22:16
Patient with high blood pressure during this ER visit?: Yes
Condition: Good
Discharge Problem:
Damian's cyst
Instructions: Damian's Cyst (DC), BLOOD PRESSURE
Prescriptions:
No Action
furosemide 20 MG tablet
20 mg PO DAILY
polyethylene glycol 3350 [ClearLax] 17 GM powder in packet
17 gm PO DAILYPRN PRN (Reason: constipation)
metoprolol succinate 50 MG tablet extended release 24 hr
50 mg PO QPM
pilocarpine HCl 1 % Drops
1 drp BOTH EYES BID
rivastigmine tartrate 3 mg Capsule
3 mg PO BID
magnesium oxide 200 mg magnesium Tablet
600 mg PO DAILY
meclizine 12.5 mg tablet
25 mg PO Q8HPRN PRN (Reason: vertigo)
pantoprazole 40 mg Tablet,Delayed Release (Dr/Ec)
40 mg PO BID Qty: 30 0RF
ondansetron HCl 8 mg Tablet
8 mg PO Q8HPRN PRN (Reason: nausea)
acetaminophen [Tylenol Extra Strength] 500 mg Tablet
1,000 mg PO QIDPRN PRN (Reason: mild pain)
docusate sodium [Colace] 100 mg Capsule
100 mg PO DAILYPRN PRN (Reason: constipation)
atorvastatin 40 MG tablet
40 mg PO DAILY
Referrals:
Rambo Mcdowell MD [Family Provider, Family Practice] - Follow up in 2-3 days
Activity Restrictions/Additional Instructions:
IF YOU DEVELOP WEAKNESS, BRUISING, INCREASING OR NEW SWELLING, INCREASING OR NEW PAIN, CHANGE TO THE COLOR OF YOUR URINE, NUMBNESS, OR OTHER WORRISOME SIGNS, PLEASE RETURN TO THE ER IMMEDIATELY
Interventions
Interventions:
*Risk Screen - Suicide Last Done: 08/22/25 17:58
*General Assessment Last Done: 08/22/25 21:52
*Neglect/Abuse Screening Last Done: 08/22/25 17:58
*ED- Fall Risk Assessment Last Done: 08/22/25 21:53
*ED COVID-19 Vaccine History Last Done: 08/22/25 21:53
ED- Cardiac Assessment Last Done: 08/22/25 21:52
ED- Pulmonary Assessment Last Done: 08/22/25 21:52
ED-Skin Assessment Last Done: 08/22/25 21:52
Discharge Date and Time
Print Language: SLOVENIAN
== END 2025-08-22 22:30 | disposition home or self-care (01) ==
LOC: EMR 17:40
PROVIDERS: EMERGENCY PHYSICIAN Emergency Medicine; FAMILY PHYSICIAN Family Medicine
DX: M71.20 Synovial cyst of popliteal space [Baker], unspecified knee (principal); R22.42 Localized swelling, mass and lump, left lower limb; I48.91 Unspecified atrial fibrillation; I25.10 Atherosclerotic heart disease of native coronary artery without angina pectoris; I67.1 Cerebral aneurysm, nonruptured; K21.9 Gastro-esophageal reflux disease without esophagitis; I10 Essential (primary) hypertension; E78.00 Pure hypercholesterolemia, unspecified; I38 Endocarditis, valve unspecified; M19.012 Primary osteoarthritis, left shoulder; G47.33 Obstructive sleep apnea (adult) (pediatric); I35.1 Nonrheumatic aortic (valve) insufficiency; Z82.49 Family history of ischemic heart disease and other diseases of the circulatory system; Z86.73 Personal history of transient ischemic attack (TIA), and cerebral infarction without residual deficits; Z86.79 Personal history of other diseases of the circulatory system; Z90.49 Acquired absence of other specified parts of digestive tract; Z90.79 Acquired absence of other genital organ(s); Z95.1 Presence of aortocoronary bypass graft; Z95.3 Presence of xenogenic heart valve; Z95.5 Presence of coronary angioplasty implant and graft
CPT/HCPCS: 99284; 93970

== ENCOUNTER 2025-09-05 11:00 | Emergency (ER) | payer MEDICARE, OTHER, SELFPAY ==
[2025-09-05 11:17] VITALS: BP 139/69
[2025-09-05 12:00] VITALS: BP 158/69
[2025-09-05 12:01] LABS: Troponin I < 0.012 ng/ml
[2025-09-05 12:02] LABS: Hematocrit 32.0 % (39.0-52.0); Hemoglobin 10.2 g/dL (13.0-18.0); Mean Corp Hgb Conc. 31.9 g/dL (33.0-37.0); Mean Corpuscular Volume 101.6 fL (80.0-94.0); Platelet Count 325 10^3/uL (130-400); Red Cell Dist. Width 21.0 % (11.5-14.5)
[2025-09-05 12:10] LABS: ALT (SGPT) 11 U/L (0-50); AST (SGOT) 15 U/L (17-59); Albumin 4.3 g/dl (3.5-5.0); Alkaline Phosphatase 106 U/L (38-126); Blood Urea Nitrogen 20 mg/dl (9-20); Calcium 9.4 mg/dl (8.4-10.2); Carbon Dioxide 28 mmol/L (22-30); Chloride 106 mmol/L (98-107); Glucose 93 mg/dl (70-99); Lipase 35 U/L (23-300); Potassium 4.6 mmol/L (3.5-5.1); Sodium 140 mmol/L (135-145); Total Protein 7.2 g/dl (6.3-8.2); eGFR > 60.00
--- NOTE | 2025-09-05 12:19 | ED.GENMED ---
History of Present Illness
General
Chief Complaint: Chest Pain
Source: patient
Exam Limitations: none
Time Seen by Provider: 09/05/25 11:46
Nursing documentation reviewed up to this point in time: agreed with
History of Present Illness
History of Present Illness:
Patient is an 84-year-old male with past medical history of MDS paroxysmal A-fib CAD status post bypass surgery hypertension mitral valve prolapse Alzheimer's sleep apnea thoracic aneurysm, subarachnoid bleeding TIA cerebral aneurysm status post
clipping presents to the ER for eval for chest pain. Patient has had pain intermittent pain since Monday , is asymptomatic now.
Patient had no associated shortness of breath nausea vomiting. Denies any recent fever chills illness.
Past History
Past History
ED Past Medical History: Arrthythmia (Atrial fibrillation), CAD, CVA (TIA, cerebral aneurysm subarachnoid bleed), GERD, HTN, Hypercholesterolemia, Valvular disease (Aortic regurgitation), Other (Clipped cerebral aneurysm . Osteoarthritis/tendinitis
left shoulder.) and Other (Obstructive sleep apnea/BiPAP)
ED Past Surgical History: Appendectomy, Cardiac (Mitral valve repair in 1994, CABG times 12/15/1994, PTCA with stent 2004, August 2017, bovine aortic valve replacement, CABG redo), Cholecystectomy and Other (Left inguinal hernia repair, TURP)
Patient has exhibited threatening behavior?: No
PSI?: No
Social History
Tobacco: Non-smoker
Alcohol: None
Drug: None
Personal:
Living: with family
Employment: Retired
Family History
Family History: Hypertension
Phy Exam
General Physical Exam
General Presentation: no apparent distress
General age: appears stated age
General Skin: warm and dry
General Habitus: elderly
General Mental: alert
General Hydration: appears well hydrated
Cardiovascular Exam
Cardiovascular Exam: regular rate/rhythm, no murmur and normal peripheral pulses
Pulmonary Exam
Pulmonary Exam: lungs clear and no respiratory distress
Neurological Exam
Neurological Exam: alert and oriented x3
Musculoskeletal Exam
Musculoskeletal Exam: full ROM
Skin Exam
Skin Exam: normal color and warm/dry
Psychiatric Exam
Psychiatric Exam: normal mood/affect
Scores
Heart Score for Chest Pain Patients
STEMI patient?: Not applicable
Course
Orders/Labs/Results
Orders:
Orders
09/05/25 11:02
EKG [Electrocardiogram (*1)] Urgent
Reason for Study: Chest Pain
EKG- Treatment ONCE
09/05/25 11:28
Complete Blood Count/With Diff Urgent
Comprehensive Metabolic Panel Urgent
Lipase Urgent
Troponin I Urgent
Abnormal Lab Results
09/05/25
11:28
WBC 0.8 L* 10^3/uL
(4.8-10.8)
RBC 3.15 L 10^6/uL
(4.70-6.10)
Hgb 10.2 L g/dL
(13.0-18.0)
Hct 32.0 L %
(39.0-52.0)
MCV 101.6 H fL
(80.0-94.0)
MCH 32.4 H pg
(27.0-31.0)
MCHC 31.9 L g/dL
(33.0-37.0)
RDW 21.0 H %
(11.5-14.5)
Absolute Neuts (auto) 0.1 L* 10^3/uL
(1.4-6.5)
Absolute Lymphs (auto) 0.5 L 10^3/uL
(1.2-3.4)
Absolute Monos (auto) 0.0 L 10^3/uL
(0.1-0.6)
Neutrophils % 16.9 L %
(42.2-75.2)
Lymphocytes % 67.5 H %
(20.5-51.1)
Eosinophils % 6.5 H %
(0-6)
Basophils % 5.2 H %
(0-2)
Total Bilirubin 2.3 H mg/dl
(0.2-1.3)
AST 15 L U/L
(17-59)
09/05/25 11:28
09/05/25 11:28
Vital Signs
Initial and Last Documented VS:
Initial Vital Signs
Temp Pulse Resp BP Pulse Ox
97.7 F 64 16 139/69 100
09/05/25 11:17 09/05/25 11:17 09/05/25 11:17 09/05/25 11:17 09/05/25 11:17
Last Documented Vital Signs
Temp Pulse Resp BP Pulse Ox
97.7 F 50 16 158/69 100
09/05/25 12:00 09/05/25 12:00 09/05/25 12:00 09/05/25 12:00 09/05/25 12:42
Trimmer Sawyer consulted with Physician
Trimmer Sawyer consulted with physician?: Yes
Name of Physician Consulted: Tommy
MDM/Problems Addressed
Differential Diagnosis Includes:
Not limited to ACS, less likely
MDM/Problems Addressed:
As documented patient is an 84-year-old history with history of MDS presents for intermittent chest pain since Monday. Patient has been asymptomatic here in the ER. Patient with negative cardiac troponin no acute findings and EKG . Labs reviewed
show a low white count, low absolute neutrophils. He denies any recent cough fever chills illness. He is afebrile nonhypoxic and no acute distress. He is followed by oncology here I did speak with Dr. Youssef on-call and since patient is not
febrile and well-appearing stable for discharge home with outpatient follow-up. He is neutropenic at baseline.
He has remained chest pain-free will DC with chest pain hotline. Pt is followed by DR Hebert.
Chronic conditions affecting care:
MDS, <del>afib,</del> <del>CAD</del> <del>htn,</del>
*Pulse Oximetry
SaO2: 100
Oxygen Mode of Delivery: Room air
Patient hypoxic: no
*EKG
Interpreted by ED Provider?: Yes
Heart Rate: 60
Rate: normal
Rhythm: sinus
*Critical Care Note
Total Time (30-74mins, 75-104mins- exclusive of procedures): Not Applicable
Patient Management
Discussion with other providers: Specialist Physician (Dr Hutchinson )
ED Attending Note
-
Portions of this chart may have been created with voice recognition software.� Occasional wrong word or��sound alike� substitutions may have occurred due to the inherent limitations of voice recognition software.
Discharge Plan
Departure
Patient Disposition: Home (Routine Discharge)
Date of Disposition: 09/05/25
Time of Disposition: 14:07
Patient with high blood pressure during this ER visit?: Yes
Condition: Fair
Covid-19: Not Applicable
Discharge Problem:
Chest pain
Instructions: Chest Pain CBC Follow Up
Prescriptions:
No Action
furosemide 20 MG tablet
20 mg PO DAILY
polyethylene glycol 3350 [ClearLax] 17 GM powder in packet
17 gm PO DAILYPRN PRN (Reason: constipation)
metoprolol succinate 50 MG tablet extended release 24 hr
50 mg PO QPM
pilocarpine HCl 1 % Drops
1 drp BOTH EYES BID
rivastigmine tartrate 3 mg Capsule
3 mg PO BID
magnesium oxide 200 mg magnesium Tablet
600 mg PO DAILY
meclizine 12.5 mg tablet
25 mg PO Q8HPRN PRN (Reason: vertigo)
pantoprazole 40 mg Tablet,Delayed Release (Dr/Ec)
40 mg PO BID Qty: 30 0RF
ondansetron HCl 8 mg Tablet
8 mg PO Q8HPRN PRN (Reason: nausea)
acetaminophen [Tylenol Extra Strength] 500 mg Tablet
1,000 mg PO QIDPRN PRN (Reason: mild pain)
docusate sodium [Colace] 100 mg Capsule
100 mg PO DAILYPRN PRN (Reason: constipation)
atorvastatin 40 MG tablet
40 mg PO DAILY
Referrals:
Jarod Hebert MD [Active, Cardiology]
Rambo Mcdowell MD [Family Provider, Family Practice]
Activity Restrictions/Additional Instructions:
you were placed on the chest pain hotline which means you should receive a phone call from the cardiology office in the next 1 to 2 days if you do not please call the cardiology office soon as possible for an appointment. Also please follow with
the oncologist as scheduled. Return if any worsening of symptoms
Interventions
Interventions:
*Risk Screen - Suicide Last Done: 09/05/25 11:17
*General Assessment Last Done: 09/05/25 11:17
*Neglect/Abuse Screening Last Done: 09/05/25 11:17
*ED COVID-19 Vaccine History Last Done: 09/05/25 11:17
*ED Influenza Vaccine History Last Done: 09/05/25 11:17
*Nursing Disposition Last Done: 09/05/25 14:26
ED- Cardiac Assessment Last Done: 09/05/25 13:08
Discharge Date and Time
Discharge Date/Time: 09/05/25 14:26
Print Language: TURKISH
[2025-09-05 12:24] LABS: Nucleated Red Blood Cells % 0 % (-)
== END 2025-09-05 14:26 | disposition home or self-care (01) ==
LOC: EMR 11:00
PROVIDERS: EMERGENCY PHYSICIAN Student in an Organized Health Care Education/Training Program; FAMILY PHYSICIAN Family Medicine
DX: R07.89 Other chest pain (principal); D46.9 Myelodysplastic syndrome, unspecified; I25.10 Atherosclerotic heart disease of native coronary artery without angina pectoris; I10 Essential (primary) hypertension; I48.0 Paroxysmal atrial fibrillation; D70.9 Neutropenia, unspecified; E78.00 Pure hypercholesterolemia, unspecified; F02.80 Dementia in other diseases classified elsewhere, unspecified severity, without behavioral disturbance, psychotic disturbance, mood disturbance, and anxiety; G30.9 Alzheimer's disease, unspecified; G47.33 Obstructive sleep apnea (adult) (pediatric); M19.012 Primary osteoarthritis, left shoulder; Z82.49 Family history of ischemic heart disease and other diseases of the circulatory system; Z86.73 Personal history of transient ischemic attack (TIA), and cerebral infarction without residual deficits; Z86.79 Personal history of other diseases of the circulatory system; Z90.49 Acquired absence of other specified parts of digestive tract; Z90.79 Acquired absence of other genital organ(s); Z95.1 Presence of aortocoronary bypass graft; Z95.3 Presence of xenogenic heart valve; Z95.5 Presence of coronary angioplasty implant and graft
CPT/HCPCS: 99283; 80053; 83690; 84484; 85025; 93005

== ENCOUNTER → 2025-09-17 10:41 | Outpatient (REF) | payer MEDICARE, OTHER, SELFPAY | LOC: HWRCS 10:41 | PROVIDERS: ATTENDING PHYSICIAN Internal Medicine Cardiovascular Disease; FAMILY PHYSICIAN Family Medicine | DX: R07.89 Other chest pain (principal) | CPT/HCPCS: 78452; 93017; A9500; J2785 ==

== ENCOUNTER → 2025-10-06 14:28 | Outpatient (REF) | payer MEDICARE, OTHER, SELFPAY | LOC: RCS 14:28 | PROVIDERS: ATTENDING PHYSICIAN Internal Medicine Cardiovascular Disease; FAMILY PHYSICIAN Family Medicine | DX: R07.89 Other chest pain (principal) | CPT/HCPCS: 93306 ==